=== PATIENT | female | born 1960 | race Caucasian/White ===

== ENCOUNTER 2019-04-04 23:41 | Emergency (ER) | payer SELFPAY ==
--- NOTE | 2019-04-05 00:10 | ER Document Report ---
ED GI/ - General Chief Complaint: Nausea/Vomiting Stated Complaint: NAUSEA Time Seen by Provider: 04/05/19 00:09 Primary Care Provider: SHARYN CHENG MD [NO LOCAL MD] - Follow up as needed Mode of Arrival: Ambulatory Information source: Patient Notes: HISTORY OF PRESENT ILLNESS: Patient is a 58-year-old morbidly obese female with a past medical history of depression who presents with multiple episodes of nausea and vomiting with lower abdominal pain that began 2 to 3 days ago and worsening. Patient denies fevers, denies bloody vomit or bloody bowel movements. Pain is an aching and burning sensation with some sharp ideation from the left lower quadrant up across the abdomen. She denies vaginal bleeding. Location: Left lower quadrant Onset: 2 to 3 days ago Alleviation: None Provocation: Movement Quality: Aching, nausea Radiation: None Severity: Moderate at worst Timing: Intermittent History of abdominal surgery: None Associated symptoms: Denies fevers or chills, no cough or congestion, no hematemesis or hematochezia, no diarrhea or constipation Last bowel movement: Today and normal REVIEW OF SYSTEMS: CONSTITUTIONAL : Denies fever or chills, no sweats. Denies recent illness. EENT: Denies eye, ear, throat, or mouth pain or symptoms. Denies nasal or sinus congestion. CARDIOVASCULAR: Denies chest pain. Denies swelling of the legs. RESPIRATORY: Denies cough, cold, or chest congestion. Denies shortness of breath or difficulty breathing. Denies wheezing. GASTROINTESTINAL: Positive for abdominal pain. Positive for vomiting, negative for diarrhea. Denies constipation. GENITOURINARY: Denies difficulty urinating, painful urination, burning, frequency, or blood in urine. FEMALE GENITOURINARY: Denies vaginal bleeding, abnormal or irregular periods. MUSCULOSKELETAL: Denies neck or back pain or joint pain or swelling. SKIN: Denies rash or skin lesions. HEMATOLOGIC : Denies easy bruising or bleeding. LYMPHATIC: Denies swollen, enlarged glands. NEUROLOGICAL: Denies altered mental status or loss of consciousness. Denies h eadache. Denies weakness or paralysis or loss of use of either side. Denies problems with gait or speech. Denies sensory or motor loss. PSYCHIATRIC: Denies anxiety or stress or depression. All other systems reviewed and negative. PHYSICAL EXAMINATION: GENERAL: Obese and tired-appearing, well-nourished and in no acute distress. HEAD: Atraumatic, normocephalic. No scalp deformity, depression, or crepitance. EYES: Pupils are 3 mm and equal/round/reactive to light, extraocular movements intact, sclera anicteric, conjunctiva are normal. ENT: Nares patent bilaterally, oropharynx. Moist mucous membranes. No tonsil hypertrophy. NECK: Normal range of motion, supple without lymphadenopathy. LUNGS: Breath sounds present, equal, and clear to auscultation bilaterally. No wheezes, rales, or rhonchi. HEART: Regular rate and rhythm without murmurs, rubs, or gallops. 2+ peripheral pulses. Normal capillary refill. ABDOMEN: Soft, moderate tenderness in the left lower quadrant and suprapubic area, nondistended. Normoactive bowel sounds. No guarding, no rebound. No masses appreciated. BACK: Normal contour, no midline tenderness. Rectal exam deferred. GENITAL/PELVIC: Deferred. EXTREMITIES: Normal range of motion, no pitting or edema. No cyanosis. NEUROLOGICAL: No focal neurological deficits. Moves all extremities spontaneously and on command. PSYCH: Normal mood, normal affect. No suicidal thoughts/ideations. No homicidal thoughts/ideations. No hallucinations. SKIN: Warm, dry, normal turgor, no rashes or lesions noted. ASSESSMENT AND PLAN: This patient is a 58-year-old female who presents with vomiting with lower abdominal tenderness that began a few days ago, but worsening before presentation. Concern for colitis versus gastroenteritis versus diverticulitis versus viral syndrome versus gastritis. 1. Will obtain labs, urine, cardiac enzymes, CT scan of the abdomen/pelvis, and reassess. 2. Will give IV fluids with morphine for pain control and reassess. TRAVEL OUTSIDE OF THE [place] IN LAST 30 DAYS: No - HPI Patient complains to provider of: Abdominal pain, Vomiting Onset: Yesterday Timing/Duration: Gradual Quality of pain: Achy, Cramping Severity at maximum: Moderate Severity in ED: Mild Pain Level: 2 Location: LLQ, Suprapubic, Pelvis Vaginal bleeding (Compared to normal period): None Menstrual period history: Post-menopausal Sexual history: Inactive Associated symptoms: Diarrhea, Vomiting Exacerbated by: Denies Relieved by: Denies Similar symptoms previously: No Recently seen / treated by doctor: No - Related Data Allergies/Adverse Reactions: No Known Allergies Allergy (Verified 08/01/14 12:37) Past Medical History - General Information source: Patient - Social History Smoking Status: Never Smoker Chew tobacco use (# tins/day): No Frequency of alcohol use: None Drug Abuse: None Lives with: Alone Family History: Reviewed & Not Pertinent Patient has suicidal ideation: No Patient has homicidal ideation: No - Past Medical History Cardiac Medical History: Reports: None Denies: Hx Coronary Artery Disease, Hx Heart Attack, Hx Hypertension Pulmonary Medical History: Reports: Hx Sleep Apnea Denies: Hx Asthma, Hx Bronchitis, Hx COPD, Hx Pneumonia EENT Medical History: Reports: None Neurological Medical History: Reports: None. Denies: Hx Cerebrovascular Accident, Hx Seizures Endocrine Medical History: Reports: Hx Hypothyroidism Renal/ Medical History: Reports: None Malignancy Medical History: Reports: None GI Medical History: Reports: None Musculoskeletal Medical History: Reports Hx Arthritis Skin Medical History: Reports None Psychiatric Medical History: Reports: Hx Depression Traumatic Medical History: Reports: None Infectious Medical History: Reports: None Past Surgical History: Reports: Hx Hysterectomy - Immunizations Hx Diphtheria, Pertussis, Tetanus Vaccination: No Review of Systems - Review of Systems Constitutional: No symptoms reported EENT: No symptoms reported Cardiovascular: No symptoms reported Respiratory: No symptoms reported Gastrointestinal: See HPI, Abdominal pain, Diarrhea, Vomiting Genitourinary: No symptoms reported Female Genitourinary: No symptoms reported Musculoskeletal: No symptoms reported Skin: No symptoms reported Hematologic/Lymphatic: No symptoms reported Neurological/Psychological: No symptoms reported -: Yes All other systems reviewed and negative Physical Exam - Vital signs Vitals: Temp 98.5 F 04/04/19 23:44 Interpretation: Normal Course - Re-evaluation Re-evalutation: 04/05/19 04:05 Labs are grossly unremarkable. CT scan shows acute sigmoid diverticulitis. Will discharge the patient home with strict return precautions and follow-up with primary care. All results were explained to and discussed with the patient, and all questions addressed and answered. The patient voices both understanding and agreeing with the plan. - Vital Signs Vital signs: Temp Pulse Resp BP Pulse Ox 98.9 F 12 108/69 95 04/05/19 04:21 04/05/19 04:21 04/05/19 04:21 04/05/19 04:21 - Laboratory Result Diagrams: 04/05/19 01:00 04/05/19 01:00 Laboratory results interpreted by me: 04/05/19 04/05/19 04/05/19 00:10 01:00 01:00 RBC 3.70 L Hgb 11.3 L Hct 34.5 L RDW 14.4 H Lymph % (Auto) 10.6 L Seg Neutrophils % 85.3 H BUN 26 H Est GFR (MDRD) Non-Af 57 L Glucose 129 H Total Bilirubin 1.7 H Direct Bilirubin 1.4 H AST 45 H Alkaline Phosphatase 236 H Urine Protein 100 H Urine Ketones TRACE H Urine Bilirubin MODERATE H Urine Urobilinogen 4.0 H Urine Ascorbic Acid 20 H - Diagnostic Test Radiology reviewed: Image reviewed, Reports reviewed Discharge - Discharge Clinical Impression: Diverticulitis Abdominal pain Qualifiers: Abdominal location: left lower quadrant Qualified Code(s): R10.32 - Left lower quadrant pain Condition: Good Disposition: HOME, SELF-CARE Instructions: Diverticulitis ([facility]) Additional Instructions: You have been evaluated in the Emergency Department for abdominal pain and vomiting. While here, you had a CAT scan that showed evidence of diverticulitis and it is now safe to be discharged home. Please follow-up with your primary physician as instructed in one week to be rechecked. You has been prescribed medications, please take these as instructed. Return to the Emergency Department if you experience worsening pain, high fevers, bloody diarrhea, or any other concerning symptoms. Prescriptions: Hydrocodone/Acetaminophen [[place] 5-325 mg Tablet] 1 tab PO Q6HP PRN #20 tablet PRN Reason: For Pain Ondansetron [Zofran Odt 4 mg Tablet] 1 tab PO Q6HP PRN #30 tab.rapdis PRN Reason: For Nausea/Vomiting Amox Tr/Potassium Clavulanate [Augmentin 875-125 mg Tablet] 1 tab PO BID #20 tablet Forms: Return to Work Referrals: SHARYN CHENG MD [NO LOCAL MD] - Follow up as needed Print Language: Omani
[2019-04-05 01:19] LABS: ABSOLUTE LYMPHOCYTES (AUTO) 0.7 10^3/uL (0.5-4.7); ABSOLUTE MONOCYTES (AUTO) 0.2 10^3/uL (0.1-1.4); ABSOLUTE NEUT (AUTO) 5.5 10^3/uL (1.7-8.2); BASOPHILS % (AUTO) 0.4 % (0-2); EOSINOPHILS % (AUTO) 0.4 % (0-6); HEMATOCRIT 34.5 % (36.0-47.0); HEMOGLOBIN 11.3 g/dL (12.0-15.5); LYMPHOCYTES % (AUTO) 10.6 % (13-45); MEAN CORPUSCULAR HEMOGLOBIN 30.5 pg (27.0-33.4); MEAN CORPUSCULAR HGB CONC 32.7 g/dL (32.0-36.0); MEAN CORPUSCULAR VOLUME 93 fl (80-97); MONOCYTES % (AUTO) 3.3 % (3-13); PLATELET COUNT 284 10^3/uL (150-450); RED CELL DISTRIBUTION WIDTH 14.4 % (11.5-14.0); SEGMENTED NEUTROPHILS % (AUTO) 85.3 % (42-78); TOTAL CELLS COUNTED % (AUTO) 100 %; WHITE BLOOD COUNT 6.4 10^3/uL (4.0-10.5)
[2019-04-05 01:31] LABS: APPEARANCE,URINE CLOUDY; BILIRUBIN,URINE MODERATE (NEGATIVE); COLOR,URINE AMBER; GLUCOSE, URINE NEGATIVE (NEGATIVE); KETONES,URINE TRACE mg/dL (NEGATIVE); LEUKOCYTE ESTERASE,URINE NEGATIVE (NEGATIVE); NITRITE,URINE NEGATIVE (NEGATIVE); PROTEIN,URINE 100 mg/dL (NEGATIVE); URINE SPECIFIC GRAVITY 1.036
[2019-04-05 01:34] LABS: ALBUMIN 3.7 g/dL (3.5-5.0); ALKALINE PHOSPHATASE 236 U/L (38-126); ANION GAP 13 (5-19); ASPARTATE AMINO TRANSFERASE 45 U/L (14-36); BILIRUBIN,DIRECT 1.4 mg/dL (0.0-0.4); BILIRUBIN,TOTAL 1.7 mg/dL (0.2-1.3); BLOOD UREA NITROGEN 26 mg/dL (7-20); CALCIUM 8.8 mg/dL (8.4-10.2); CARBON DIOXIDE 23 mmol/L (22-30); CHLORIDE 104 mmol/L (98-107); GLUCOSE 129 mg/dL (75-110); POTASSIUM 3.9 mmol/L (3.6-5.0)
[2019-04-05 01:36] LABS: ALCOHOL < 10 mg/dL (NONE DETECTED)
[2019-04-05 02:22] LABS: URINE AMPHETAMINES SCREEN NEGATIVE; URINE BARBITURATES SCREEN NEGATIVE; URINE BENZODIAZEPINES SCREEN NEGATIVE; URINE COCAINE SCREEN NEGATIVE; URINE MARIJUANA (THC) SCREEN NEGATIVE; URINE METHADONE SCREEN NEGATIVE; URINE PHENCYCLIDINE SCREEN NEGATIVE
--- NOTE | 2019-04-05 02:40 | RADIOLOGY REPORT (SQ) ---
INDICATION: Abdominal pain. CREAT 1.00 COMPARISON: None. TECHNIQUE: CT ABDOMEN PELVIS WITH IV CONTRAST on 04/05/2019 1:12 AM CDT This exam was performed according to our departmental dose-optimization program, which includes automated exposure control, adjustment of the mA and/or kV according to patient size and/or use of iterative reconstruction technique. FINDINGS: Lower lungs are clear. Abdomen: The liver is normal in appearance. There is no biliary dilatation. Gallbladder is normal in appearance. The pancreas and spleen are normal in appearance. Adrenal glands are normal. Kidneys are mildly atrophic. Abdominal aorta is normal in course and caliber without aneurysm. There is no free air. There is no retroperitoneal adenopathy. Pelvis: There is mild diverticulosis of the left colon. There is mild inflammation surrounding the mid sigmoid colon. Urinary bladder is unremarkable. There is no free fluid. Uterus is normal in size. Appendix is normal. Skeleton: There are no acute osseous findings. No suspicious bony lesions. IMPRESSION: Probable midsigmoid colonic diverticulitis.
[2019-04-05] MEDS ORDERED: HYDROCODONE/ACETAMINOPHEN 5-325 MG TABLET PO ONE (04:06)
[2019-04-05] MEDS ORDERED: AMOXICILLIN TR/POT CLAVULANATE 500-125 MG TAB PO ONE (04:06)
[2019-04-05 05:12] VITALS: BP 108/69
--- NOTE | 2019-04-05 07:43 | EKG REPORT ---
SEVERITY:- OTHERWISE NORMAL ECG - SINUS TACHYCARDIA : Confirmed by: Joey Koroam MD 05-Apr-2019 07:42:33
== END 2019-04-05 04:35 | disposition home or self-care (01) ==
LOC: ER 23:41
DX: K57.92 Diverticulitis of intestine, part unspecified, without perforation or abscess without bleeding (principal); R10.32 Left lower quadrant pain; R11.2 Nausea with vomiting, unspecified; F32.9 Major depressive disorder, single episode, unspecified; R19.7 Diarrhea, unspecified; Z90.710 Acquired absence of both cervix and uterus
CPT/HCPCS: 36415; 74177; 80053; 80307; 81001; 83690; 84484; 85025; 93005; 93010; 99284

== ENCOUNTER 2019-05-11 12:51 | Inpatient (IN) | payer BC ==
[2019-05-11] MEDS ORDERED: NORMAL SALINE 1000 ML 1,000 ML IV ONE (13:26)
[2019-05-11] MEDS ORDERED: DICYCLOMINE HCL 20 MG TABLET PO ONE (13:27)
--- NOTE | 2019-05-11 13:28 | ER Document Report ---
ED Medical Screen (RME) - General Chief Complaint: Abdominal Pain Stated Complaint: LOWER ABDOMINAL PAIN Time Seen by Provider: 05/11/19 13:18 Primary Care Provider: LENCHO HENDERSON DO [Primary Care Provider] - Follow up as needed Notes: Patient is a 59-year-old female who presents to the emergency department with a chief complaint of abdominal pain. She states the pain is in her mid lower abdomen. She states that her symptoms started yesterday and have progressively gotten worse. States that she has not had a regular bowel movement since she had diverticulitis on April 04. She also states that she feels that she is unable to urinate. States only he is having a little bit of urine. Exam: Tender mid lower abdomen. I have greeted and performed a rapid initial assessment of this patient. A comprehensive ED assessment and evaluation of the patient, analysis of test results and completion of medical decision making process will be conducted by an additional ED providers. TRAVEL OUTSIDE OF THE [place] IN LAST 30 DAYS: No - Related Data Allergies/Adverse Reactions: No Known Allergies Allergy (Verified 08/01/14 12:37) Past Medical History - Social History Chew tobacco use (# tins/day): No Frequency of alcohol use: None Drug Abuse: None - Past Medical History Cardiac Medical History: Denies: Hx Coronary Artery Disease, Hx Heart Attack, Hx Hypertension Pulmonary Medical History: Reports: Hx Sleep Apnea Denies: Hx Asthma, Hx Bronchitis, Hx COPD, Hx Pneumonia Neurological Medical History: Denies: Hx Cerebrovascular Accident, Hx Seizures Endocrine Medical History: Reports: Hx Hypothyroidism Musculoskeltal Medical History: Reports Hx Arthritis Psychiatric Medical History: Reports: Hx Depression Past Surgical History: Reports: Hx Hysterectomy - Immunizations Hx Diphtheria, Pertussis, Tetanus Vaccination: No Physical Exam - Vital signs Vitals: Temp Pulse Resp BP Pulse Ox 98.2 F 85 28 H 167/81 H 95 05/11/19 12:54 05/11/19 12:54 05/11/19 12:54 05/11/19 12:54 05/11/19 12:54 Course - Vital Signs Vital signs: Temp Pulse Resp BP Pulse Ox 98.2 F 85 28 H 167/81 H 95 05/11/19 13:25 05/11/19 13:25 05/11/19 13:25 05/11/19 13:25 05/11/19 13:25 Doctor's Discharge - Discharge Referrals: LENCHO HENDERSON DO [Primary Care Provider] - Follow up as needed
--- NOTE | 2019-05-11 14:23 | RADIOLOGY REPORT (SQ) ---
EXAM DESCRIPTION: ACUTE ABDOMEN SERIES COMPLETED DATE/TIME: 05/11/2019 1:51 pm REASON FOR STUDY: abd pain COMPARISON: None. NUMBER OF VIEWS: Three views. TECHNIQUE: Frontal chest, supine abdomen and upright/decubitus abdomen radiographic images acquired. LIMITATIONS: None. FINDINGS: CHEST: Lungs clear of infiltrates. FREE AIR: None. No abnormal gas collections. BOWEL GAS PATTERN: Nonobstructive pattern. No dilated loops or air fluid levels. CALCIFICATIONS: No suspicious calcifications. HARDWARE: None in the abdomen. SOFT TISSUES: No gross mass or suggestion of organomegaly. BONES: No acute fracture. No worrisome bone lesions. OTHER: No other significant finding. IMPRESSION: NO RADIOGRAPHIC EVIDENCE FOR ACUTE ABDOMINAL DISEASE. TECHNICAL DOCUMENTATION: JOB ID: [id number] [employer]- All Rights Reserved Reading location - IP/workstation name: [email or web address]
--- NOTE | 2019-05-11 15:05 | ER Document Report ---
ED GI/ - General Chief Complaint: Abdominal Pain Stated Complaint: LOWER ABDOMINAL PAIN Time Seen by Provider: 05/11/19 13:18 Mode of Arrival: Ambulatory Information source: Patient Notes: 59-year-old female patient presents emergency department chief complaint of generalized abdominal pain. Patient reports diagnosed with diverticulitis on April 04 here at [facility]. She states she completed her treatment for this. She states she has had intermittent abdominal pain since then but has had severe abdominal pain that started yesterday. She states her pain has progressively gotten worse through the day, describes it as sharp stabbing pain throughout her abdomen. She also reports that she feels like she has some urinary retention. She denies any vomiting or diarrhea but reports mild nausea. TRAVEL OUTSIDE OF THE [place] IN LAST 30 DAYS: No - Related Data Allergies/Adverse Reactions: No Known Allergies Allergy (Verified 08/01/14 12:37) Past Medical History - General Information source: Patient - Social History Smoking Status: Never Smoker Chew tobacco use (# tins/day): No Frequency of alcohol use: None Drug Abuse: None Family History: Reviewed & Not Pertinent Patient has suicidal ideation: No Patient has homicidal ideation: No - Past Medical History Cardiac Medical History: Denies: Hx Coronary Artery Disease, Hx Heart Attack, Hx Hypertension Pulmonary Medical History: Reports: Hx Sleep Apnea Denies: Hx Asthma, Hx Bronchitis, Hx COPD, Hx Pneumonia Neurological Medical History: Denies: Hx Cerebrovascular Accident, Hx Seizures Endocrine Medical History: Reports: Hx Hypothyroidism Musculoskeletal Medical History: Reports Hx Arthritis Psychiatric Medical History: Reports: Hx Depression Past Surgical History: Reports: Hx Hysterectomy - Immunizations Hx Diphtheria, Pertussis, Tetanus Vaccination: No Review of Systems - Review of Systems Constitutional: No symptoms reported EENT: No symptoms reported Cardiovascular: No symptoms reported Respiratory: No symptoms reported Gastrointestinal: Abdominal pain, Nausea, Vomiting Genitourinary: No symptoms reported Female Genitourinary: No symptoms reported Musculoskeletal: No symptoms reported Skin: No symptoms reported Hematologic/Lymphatic: No symptoms reported Neurological/Psychological: No symptoms reported Physical Exam - Vital signs Vitals: Temp Pulse Resp BP Pulse Ox 98.2 F 85 28 H 167/81 H 95 05/11/19 12:54 05/11/19 12:54 05/11/19 12:54 05/11/19 12:54 05/11/19 12:54 - Notes Notes: PHYSICAL EXAMINATION: GENERAL: Well-appearing, nontoxic, well-nourished and in no acute distress. HEAD: Atraumatic, normocephalic. EYES: Pupils equal round and reactive to light, extraocular movements intact, conjunctiva are normal. ENT: Nares patent, oropharynx clear without exudates. Moist mucous membranes. NECK: Normal range of motion, supple without lymphadenopathy LUNGS: Breath sounds clear to auscultation bilaterally and equal. No wheezes rales or rhonchi. HEART: Regular rate and rhythm without murmurs ABDOMEN: Soft, nondistended abdomen. Generalized abdominal tenderness with mild palpation. Female : No CVA tenderness. Musculoskeletal: Normal range of motion, no pitting or edema. No cyanosis. NEUROLOGICAL: Cranial nerves grossly intact. Normal speech, normal gait. Normal sensory, motor exams PSYCH: Normal mood, normal affect. SKIN: Warm, Dry, normal turgor, no rashes or lesions noted. Course - Re-evaluation Re-evalutation: Laboratory 05/11/19 05/11/19 05/11/19 15:29 15:29 15:29 WBC 17.6 H RBC 3.13 L Hgb 9.1 L Hct 28.7 L MCV 92 MCH 29.1 MCHC 31.8 L RDW 16.4 H Plt Count 369 Lymph % (Auto) Not Reportable [place] % (Auto) Not Reportable Eos % (Auto) Not Reportable Baso % (Auto) Not Reportable Absolute Neuts (auto) Not Reportable Absolute Lymphs (auto) Not Reportable Absolute Monos (auto) Not Reportable Absolute Eos (auto) Not Reportable Absolute Basos (auto) Not Reportable Total Counted 100 Seg Neutrophils % Not Reportable Seg Neuts % (Manual) 88 H Band Neutrophils % 2 L Lymphocytes % (Manual) 7 L Monocytes % (Manual) 3 Eosinophils % (Manual) 0 Basophils % (Manual) 0 Abs Neuts (Manual) 15.8 H Abs Lymphs (Manual) 1.2 Abs Monocytes (Manual) 0.5 Absolute Eos (Manual) 0.0 Abs Basophils (Manual) 0.0 Toxic Granulation 2+ Clumped Platelets PRESENT Platelet Comment ADEQUATE Anisocytosis 1+ Sodium 139.1 Potassium 4.6 Chloride 105 Carbon Dioxide 21 L Anion Gap 13 BUN 13 Creatinine 0.80 Est GFR ( Amer) > 60 Est GFR (MDRD) Non-Af > 60 Glucose 150 H Calcium 8.6 Total Bilirubin 1.1 Direct Bilirubin 0.7 H Neonat Total Bilirubin Not Reportable Neonat Direct Bilirubin Not Reportable Neonat Indirect Bili Not Reportable AST 38 H ALT 36 Alkaline Phosphatase 242 H Total Protein 6.6 Albumin 3.2 L Lipase 36.6 Urine Color Urine Appearance Urine pH Ur Specific [place] Urine Protein Urine Glucose (UA) Urine Ketones Urine Blood Urine Nitrite (Reflex) Urine Bilirubin Urine Urobilinogen Leukocyte Esterase Rfl Urine RBC (Auto) Urine Mucus (Auto) Urine Ascorbic Acid 05/11/19 16:03 WBC RBC Hgb Hct MCV MCH MCHC RDW Plt Count Lymph % (Auto) [place] % (Auto) Eos % (Auto) Baso % (Auto) Absolute Neuts (auto) Absolute Lymphs (auto) Absolute Monos (auto) Absolute Eos (auto) Absolute Basos (auto) Total Counted Seg Neutrophils % Seg Neuts % (Manual) Band Neutrophils % Lymphocytes % (Manual) Monocytes % (Manual) Eosinophils % (Manual) Basophils % (Manual) Abs Neuts (Manual) Abs Lymphs (Manual) Abs Monocytes (Manual) Absolute Eos (Manual) Abs Basophils (Manual) Toxic Granulation Clumped Platelets Platelet Comment Anisocytosis Sodium Potassium Chloride Carbon Dioxide Anion Gap BUN Creatinine Est GFR ( Amer) Est GFR (MDRD) Non-Af Glucose Calcium Total Bilirubin Direct Bilirubin Neonat Total Bilirubin Neonat Direct Bilirubin Neonat Indirect Bili AST ALT Alkaline Phosphatase Total Protein Albumin Lipase Urine Color YELLOW Urine Appearance CLEAR Urine pH 6.0 Ur Specific [place] 1.014 Urine Protein 30 H Urine Glucose (UA) NEGATIVE Urine Ketones NEGATIVE Urine Blood NEGATIVE Urine Nitrite (Reflex) NEGATIVE Urine Bilirubin NEGATIVE Urine Urobilinogen 2.0 H Leukocyte Esterase Rfl NEGATIVE Urine RBC (Auto) 1 Urine Mucus (Auto) OCC Urine Ascorbic Acid NEGATIVE Acute Abdomen Series 05/11/19 13:26 IMPRESSION: NO RADIOGRAPHIC EVIDENCE FOR ACUTE ABDOMINAL DISEASE. Abdomen/Pelvis CT 05/11/19 15:05 IMPRESSION: There appears to be diverticulitis. There is some extraluminal free air. There are 2 sizable fluid collections in the lower abdomen/pelvis as described. These may represent abscesses. Other findings as described. 05/11/19 17:56 Consulted general surgery, Dr. Cohen who will come and evaluate the patient. - Vital Signs Vital signs: Temp Pulse Resp BP Pulse Ox 98.2 F 85 22 H 153/59 H 98 05/11/19 13:25 05/11/19 13:25 05/11/19 19:01 05/11/19 19:01 05/11/19 19:01 - Laboratory Result Diagrams: 05/11/19 15:29 05/11/19 15:29 Laboratory results interpreted by me: 05/11/19 05/11/19 05/11/19 15:29 15:29 16:03 WBC 17.6 H RBC 3.13 L Hgb 9.1 L Hct 28.7 L MCHC 31.8 L RDW 16.4 H Seg Neuts % (Manual) 88 H Band Neutrophils % 2 L Lymphocytes % (Manual) 7 L Abs Neuts (Manual) 15.8 H Carbon Dioxide 21 L Glucose 150 H Direct Bilirubin 0.7 H AST 38 H Alkaline Phosphatase 242 H Albumin 3.2 L Urine Protein 30 H Urine Urobilinogen 2.0 H Discharge - Discharge Clinical Impression: DIVERTICULAR ABSCESS Leukocytosis Qualifiers: Leukocytosis type: unspecified Qualified Code(s): D72.829 - Elevated white blood cell count, unspecified Condition: Stable Disposition: ADMITTED INPATIENT Admitting Provider: Surgicalist Unit Admitted: Surgical Floor
[2019-05-11] MEDS ORDERED: ONDANSETRON HCL INJ/PF 4 MG/2 ML SDV IV ONE (15:12)
[2019-05-11] MEDS ORDERED: MORPHINE SULFATE 10 MG/ML INJ IV ONE (15:12)
[2019-05-11 15:59] LABS: HEMATOCRIT 28.7 % (36.0-47.0); HEMOGLOBIN 9.1 g/dL (12.0-15.5); MEAN CORPUSCULAR HEMOGLOBIN 29.1 pg (27.0-33.4); MEAN CORPUSCULAR HGB CONC 31.8 g/dL (32.0-36.0); MEAN CORPUSCULAR VOLUME 92 fl (80-97); RED BLOOD COUNT 3.13 10^6/uL (3.72-5.28); RED CELL DISTRIBUTION WIDTH 16.4 % (11.5-14.0); WHITE BLOOD COUNT 17.6 10^3/uL (4.0-10.5)
[2019-05-11 16:25] LABS: ALBUMIN 3.2 g/dL (3.5-5.0); ALKALINE PHOSPHATASE 242 U/L (38-126); ANION GAP 13 (5-19); ASPARTATE AMINO TRANSFERASE 38 U/L (14-36); BILIRUBIN,DIRECT 0.7 mg/dL (0.0-0.4); BILIRUBIN,TOTAL 1.1 mg/dL (0.2-1.3); BLOOD UREA NITROGEN 13 mg/dL (7-20); CALCIUM 8.6 mg/dL (8.4-10.2); CARBON DIOXIDE 21 mmol/L (22-30); CHLORIDE 105 mmol/L (98-107); GLUCOSE 150 mg/dL (75-110); POTASSIUM 4.6 mmol/L (3.6-5.0); TOTAL PROTEIN 6.6 g/dL (6.3-8.2)
[2019-05-11 16:30] LABS: APPEARANCE,URINE CLEAR; BILIRUBIN,URINE NEGATIVE (NEGATIVE); COLOR,URINE YELLOW; GLUCOSE, URINE NEGATIVE (NEGATIVE); KETONES,URINE NEGATIVE (NEGATIVE); PROTEIN,URINE 30 mg/dL (NEGATIVE); URINE SPECIFIC GRAVITY 1.014
[2019-05-11 16:34] LABS: ABSOLUTE LYMPHOCYTES# (MANUAL) 1.2 10^3/uL (0.5-4.7); ABSOLUTE MONOCYTES # (MANUAL) 0.5 10^3/uL (0.1-1.4); BAND NEUTROPHILS % (MANUAL) 2 % (3-5); BASOPHILS % (MANUAL) 0 % (0-2); EOSINOPHILS % (MANUAL) 0 % (0-6); LYMPHOCYTES % (MANUAL) 7 % (13-45); MONOCYTES % (MANUAL) 3 % (3-13); SEGMENTED NEUTROPHILS % (MAN) 88 % (42-78); TOTAL CELLS COUNTED 100
[2019-05-11 16:35] LABS: TOXIC GRANULATION 2+
[2019-05-11 16:36] LABS: ANISOCYTOSIS 1+
[2019-05-11 16:37] LABS: PLATELET CLUMPS PRESENT; PLATELET COMMENT ADEQUATE
[2019-05-11 16:38] LABS: PLATELET COUNT 369 10^3/uL (150-450)
--- NOTE | 2019-05-11 17:31 | RADIOLOGY REPORT (SQ) ---
EXAM DESCRIPTION: CT ABD/PELVIS WITH IV ONLY COMPLETED DATE/TIME: 05/11/2019 4:59 pm REASON FOR STUDY: low abd pain COMPARISON: 04/05/2019 TECHNIQUE: CT scan of the abdomen and pelvis performed using helical scanning technique with dynamic intravenous contrast injection. No oral contrast. Images reviewed with lung, soft tissue, and bone windows. Reconstructed coronal and sagittal MPR images reviewed. Delayed images for evaluation of the urinary system also acquired. All images stored on PACS. All CT scanners at this facility use dose modulation, iterative reconstruction, and/or weight based d osing when appropriate to reduce radiation dose to as low as reasonably achievable (ALARA). [facility]: Dose Right [facility]: CareDose [facility]: Dose Right [facility]: Teradose 4D [facility]: [employer]ix CONTRAST TYPE AND DOSE: contrast/concentration: Isovue 350.00 mg/ml; Total Contrast Delivered: 100.0 ml; Total Saline Delivered: 23.8 ml RENAL FUNCTION: BUN 13 creatinine 0.8 RADIATION DOSE: CT Rad equipment meets quality standard of care and radiation dose reduction techniq ues were employed. CTDIvol: NaN - NaN mGy. DLP: 0 mGy-cm.. LIMITATIONS: None. FINDINGS: LOWER CHEST: No significant findings. No nodules or infiltrates. LIVER: Normal size. No masses. No dilated ducts. SPLEEN: Normal size. No focal lesions. PANCREAS: No masses. No significant calcifications. No adjacent inflammation or peripancreatic fluid collections. Pancreatic duct not dilated. GALLBLADDER: No identified stones by CT criteria. No inflammatory changes to suggest cholecystitis. ADRENAL GLANDS: No significant masses or asymmetry. RIGHT KIDNEY AND URETER: No solid masses. No significant calcifications. No hydronephrosis or hyd roureter. LEFT KIDNEY AND URETER: No solid masses. No significant calcifications. No hydronephrosis or hydr oureter. AORTA AND VESSELS: No aneurysm. No dissection. Renal arteries, SMA, celiac without stenosis. RETROPERITONEUM: No retroperitoneal adenopathy, hemorrhage or masses. BOWEL AND PERITONEAL CAVITY: Sigmoid diverticulosis is present. There are inflammatory changes near the sigmoid. There is a small amount of extraluminal free air is sigmoid. There are 2 sizable defin able fluid collection. The larger measures 72 mm in largest diameter. The smaller, more inferior me asures 57 mm in largest diameter. APPENDIX: Normal. PELVIS: A catheter is present in the urinary bladder. ABDOMINAL WALL: Uncomplicated inguinal hernias are present. BONES: No significant or acute findings. OTHER: No other significant finding. IMPRESSION: There appears to be diverticulitis. There is some extraluminal free air. There are 2 s izable fluid collections in the lower abdomen/pelvis as described. These may represent abscesses. O ther findings as described. TECHNICAL DOCUMENTATION: JOB ID: [id number] Quality ID # [id number]: Final reports with documentation of one or more dose reduction techniques (e.g., Au tomated exposure control, adjustment of the mA and/or kV according to patient size, use of iterative reconstruction technique) 2010 [employer]- All Rights Reserved Reading location - IP/workstation name: [email or web address]
--- NOTE | 2019-05-11 19:46 | PDOC H&P ---
History of Present Illness Admission Date/PCP: LENCHO HENDERSON DO Patient complains of: Abdominal pain History of Present Illness: JP GILES is a 59 year old female who had been noted with a clinical evidence of diverticulitis and was treated with antibiotics intermittently for the past month and a half. Patient has noted lower abdominal pain for a month and a half. She has had some diminished appetite with resultant 25 pound weight loss. She has had some intermittent fevers as well. As well as some nausea and occasional emesis. She comes in today because of urinary retention and worsening of her lower abdominal pain. Since placement of a Au catheter she has had decreased pain although she still has lower abdominal pain. She has never had a colonoscopy. There is no family history of colon cancer. No blood per rectum nor hematuria. Past Medical History Cardiac Medical History: Denies: Coronary Artery Disease, Myocardial Infarction, Hypertension Pulmonary Medical History: Reports: Sleep Apnea Denies: Asthma, Bronchitis, Chronic Obstructive Pulmonary Disease (COPD), Pneumonia Neurological Medical History: Denies: Seizures Endocrine Medical History: Reports: Hypothyroidism Musculoskeltal Medical History: Reports: Arthritis Psychiatric Medical History: Reports: Depression Hematology: Reports: Anemia Past Surgical History Past Surgical History: Reports: Hysterectomy, Other - Repair of CSF leak Social History Smoking Status: Never Smoker Electronic Cigarette use?: No Frequency of Alcohol Use: None Hx Recreational Drug Use: No Hx Prescription Drug Abuse: No Family History Family History: Reviewed & Not Pertinent Parental Family History Reviewed: Yes - Mother with congestive heart failure Children Family History Reviewed: Yes Sibling(s) Family History Reviewed.: Yes Medication/Allergy Home Medications: Levothyroxine Sodium [Synthroid 0.112 mg Tablet] 0.112 mg PO Q6AM 05/11/19 Sertraline HCl [Zoloft 50 mg Tablet] 100 mg PO DAILY 05/11/19 Temazepam [Restoril 15 mg Capsule] 15 mg PO HSP PRN 05/11/19 Allergies/Adverse Reactions: No Known Allergies Allergy (Verified 08/01/14 12:37) Review of Systems All systems: reviewed and no additional remarkable complaints except as stated Constitutional: PRESENT: as per HPI Gastrointestinal: PRESENT: as per HPI Physical Exam Vital Signs: Temp Pulse Resp BP Pulse Ox 98.2 F 85 22 H 153/59 H 98 05/11/19 13:25 05/11/19 13:25 05/11/19 19:01 12/05/19 19:01 05/11/19 19:01 Intake & Output 05/10/19 05/11/19 05/12/19 06:59 06:59 06:59 Intake Total 1000 Output Total 200 Balance 800 Weight 118.388 kg General appearance: PRESENT: no acute distress, cooperative Eye exam: PRESENT: conjunctiva pink Neck exam: PRESENT: other - Neck supple with no masses and no tenderness. Respiratory exam: PRESENT: clear to auscultation michael Cardiovascular exam: PRESENT: RRR GI/Abdominal exam: PRESENT: other - Soft, mildly distended, focal tenderness to palpation in the mid to right lower quadrant with guarding. Extremities exam: PRESENT: +1 edema Neurological exam: PRESENT: alert, awake Psychiatric exam: PRESENT: flat affect Skin exam: PRESENT: warm Results Laboratory Results: 05/11/19 15:29 05/11/19 15:29 05/11/19 05/11/19 05/11/19 15:29 15:29 15:29 WBC 17.6 H RBC 3.13 L Hgb 9.1 L Hct 28.7 L MCV 92 MCH 29.1 MCHC 31.8 L RDW 16.4 H Plt Count 369 Seg Neutrophils % Not Reportable Sodium 139.1 Potassium 4.6 Chloride 105 Carbon Dioxide 21 L Anion Gap 13 BUN 13 Creatinine 0.80 Est GFR ( Amer) > 60 Glucose 150 H Calcium 8.6 Total Bilirubin 1.1 AST 38 H Alkaline Phosphatase 242 H Total Protein 6.6 Albumin 3.2 L Lipase 36.6 Urine Color Urine Appearance Urine pH Ur Specific [place] Urine Protein Urine Glucose (UA) Urine Ketones Urine Blood Urine RBC (Auto) 05/11/19 16:03 WBC RBC Hgb Hct MCV MCH MCHC RDW Plt Count Seg Neutrophils % Sodium Potassium Chloride Carbon Dioxide Anion Gap BUN Creatinine Est GFR ( Amer) Glucose Calcium Total Bilirubin AST Alkaline Phosphatase Total Protein Albumin Lipase Urine Color YELLOW Urine Appearance CLEAR Urine pH 6.0 Ur Specific [place] 1.014 Urine Protein 30 H Urine Glucose (UA) NEGATIVE Urine Ketones NEGATIVE Urine Blood NEGATIVE Urine RBC (Auto) 1 Impressions: Acute Abdomen Series 05/11/19 13:26 IMPRESSION: NO RADIOGRAPHIC EVIDENCE FOR ACUTE ABDOMINAL DISEASE. Abdomen/Pelvis CT 05/11/19 15:05 IMPRESSION: There appears to be diverticulitis. There is some extraluminal free air. There are 2 sizable fluid collections in the lower abdomen/pelvis as described. These may represent abscesses. Other findings as described. Assessment & Plan - Diagnosis (1) Diverticulitis large intestine Qualifiers: Diverticulitis complication: with perforation and abscess Is this a current diagnosis for this admission?: Yes Plan: With localized peritoneal signs and to abscesses. Will try conservative management initially with interventional radiology placed drains and IV antibiotics. Patient will likely need a colon resection however may be able to get the infection under control with conservative measures initially that may allow a colonoscopy and then semi-elective sigmoid colon resection with anastomosis. However would have a low threshold for proceeding with sigmoid colectomy and end colostomy if patient does not have clear response with conservative management.
[2019-05-11] MEDS ORDERED: PROMETHAZINE HCL INJ 25 MG/1 ML VIAL IV PRN (19:50)
[2019-05-11] MEDS: METRONIDAZOLE 500 MG/NS RTU 500 MG/100 ML RTUPB IV SCH (20:38)
[2019-05-11] MEDS: MORPHINE SULFATE 10 MG/ML INJ IV PRN (21:56)
[2019-05-11] MEDS: LEVOFLOXACIN 500 MG/D5W RTU 500 MG/100 ML RTUPB IV SCH (22:55)
[2019-05-12] MEDS: MORPHINE SULFATE 10 MG/ML INJ IV PRN ×3 (01:04→14:34)
[2019-05-12] MEDS: NORMAL SALINE 1000 ML 1,000 ML IV PRN ×2 (02:53→14:33)
[2019-05-12] MEDS: METRONIDAZOLE 500 MG/NS RTU 500 MG/100 ML RTUPB IV SCH ×4 (03:04→23:01)
[2019-05-12 08:48] LABS: HEMATOCRIT 26.3 % (36.0-47.0); HEMOGLOBIN 8.4 g/dL (12.0-15.5); MEAN CORPUSCULAR HEMOGLOBIN 29.1 pg (27.0-33.4); MEAN CORPUSCULAR HGB CONC 31.7 g/dL (32.0-36.0); MEAN CORPUSCULAR VOLUME 92 fl (80-97); PLATELET COUNT 340 10^3/uL (150-450); RED BLOOD COUNT 2.87 10^6/uL (3.72-5.28); RED CELL DISTRIBUTION WIDTH 16.7 % (11.5-14.0); WHITE BLOOD COUNT 16.1 10^3/uL (4.0-10.5)
[2019-05-12 09:11] LABS: ALBUMIN 2.7 g/dL (3.5-5.0); ALKALINE PHOSPHATASE 177 U/L (38-126); ANION GAP 10 (5-19); ASPARTATE AMINO TRANSFERASE 17 U/L (14-36); BILIRUBIN,DIRECT 0.7 mg/dL (0.0-0.4); BILIRUBIN,TOTAL 1.1 mg/dL (0.2-1.3); BLOOD UREA NITROGEN 13 mg/dL (7-20); CALCIUM 8.2 mg/dL (8.4-10.2); CARBON DIOXIDE 25 mmol/L (22-30); CHLORIDE 105 mmol/L (98-107); GLUCOSE 130 mg/dL (75-110); POTASSIUM 4.4 mmol/L (3.6-5.0); TOTAL PROTEIN 5.7 g/dL (6.3-8.2)
[2019-05-12 09:12] LABS: ABSOLUTE MONOCYTES # (MANUAL) 0.5 10^3/uL (0.1-1.4); BAND NEUTROPHILS % (MANUAL) 5 % (3-5); BASOPHILS % (MANUAL) 0 % (0-2); EOSINOPHILS % (MANUAL) 1 % (0-6); LYMPHOCYTES % (MANUAL) 6 % (13-45); MONOCYTES % (MANUAL) 3 % (3-13); SEGMENTED NEUTROPHILS % (MAN) 85 % (42-78); TOTAL CELLS COUNTED 100
[2019-05-12 09:13] LABS: ANISOCYTOSIS 1+; HYPOCHROMASIA SLIGHT
[2019-05-12 09:14] LABS: PLATELET COMMENT ADEQUATE
[2019-05-12] MEDS: ENOXAPARIN SODIUM INJ 40 MG/0.4 ML DISP.SYRIN SUBCUT SCH (10:01)
--- NOTE | 2019-05-12 12:02 | PDOC PROGRESS REPORT ---
Subjective Progress Note for:: 05/12/19 Subjective:: sl less pain Reason For Visit: DIVERTICULAR ABSCESS Perforated diverticulitis with diverticular abscess Physical Exam Vital Signs: Temp Pulse Resp BP Pulse Ox 99.0 F 92 22 H 132/71 H 97 05/12/19 11:58 05/12/19 11:58 05/12/19 11:58 05/12/19 11:58 05/12/19 11:58 Intake & Output 05/11/19 05/12/19 05/13/19 06:59 06:59 06:59 Intake Total 1200 Output Total 600 Balance 600 Weight 120.6 kg General appearance: PRESENT: mild distress Head exam: PRESENT: normocephalic Eye exam: PRESENT: EOMI Ear exam: PRESENT: normal external ear exam Mouth exam: PRESENT: dry mucosa Neck exam: PRESENT: full ROM Respiratory exam: PRESENT: clear to auscultation michael Cardiovascular exam: PRESENT: RRR Pulses: PRESENT: normal radial pulses, normal femoral pulses GI/Abdominal exam: PRESENT: guarding, tenderness - Tenderness to palpation Rectal exam: PRESENT: deferred Extremities exam: PRESENT: full ROM Musculoskeletal exam: PRESENT: full ROM Neurological exam: PRESENT: alert, awake, oriented to person, oriented to place Psychiatric exam: PRESENT: appropriate affect Skin exam: PRESENT: dry Results Laboratory Results: 05/12/19 08:20 05/12/19 08:20 05/11/19 05/11/19 05/11/19 15:29 15:29 15:29 WBC 17.6 H RBC 3.13 L Hgb 9.1 L Hct 28.7 L MCV 92 MCH 29.1 MCHC 31.8 L RDW 16.4 H Plt Count 369 Seg Neutrophils % Not Reportable Sodium 139.1 Potassium 4.6 Chloride 105 Carbon Dioxide 21 L Anion Gap 13 BUN 13 Creatinine 0.80 Est GFR ( Amer) > 60 Glucose 150 H Calcium 8.6 Total Bilirubin 1.1 AST 38 H Alkaline Phosphatase 242 H Total Protein 6.6 Albumin 3.2 L Lipase 36.6 Urine Color Urine Appearance Urine pH Ur Specific [place] Urine Protein Urine Glucose (UA) Urine Ketones Urine Blood Urine RBC (Auto) 05/11/19 05/12/19 05/12/19 16:03 08:20 08:20 WBC 16.1 H RBC 2.87 L Hgb 8.4 L Hct 26.3 L MCV 92 MCH 29.1 MCHC 31.7 L RDW 16.7 H Plt Count 340 Seg Neutrophils % Not Reportable Sodium 139.7 Potassium 4.4 Chloride 105 Carbon Dioxide 25 Anion Gap 10 BUN 13 Creatinine 0.85 Est GFR ( Amer) > 60 Glucose 130 H Calcium 8.2 L Total Bilirubin 1.1 AST 17 Alkaline Phosphatase 177 H Total Protein 5.7 L Albumin 2.7 L Lipase Urine Color YELLOW Urine Appearance CLEAR Urine pH 6.0 Ur Specific [place] 1.014 Urine Protein 30 H Urine Glucose (UA) NEGATIVE Urine Ketones NEGATIVE Urine Blood NEGATIVE Urine RBC (Auto) 1 Impressions: Acute Abdomen Series 05/11/19 13:26 IMPRESSION: NO RADIOGRAPHIC EVIDENCE FOR ACUTE ABDOMINAL DISEASE. Abdomen/Pelvis CT 05/11/19 15:05 IMPRESSION: There appears to be diverticulitis. There is some extraluminal free air. There are 2 sizable fluid collections in the lower abdomen/pelvis as described. These may represent abscesses. Other findings as described. Assessment & Plan - Time Time Spent with patient: 25-34 minutes - Plan Summary Plan Summary: Perforated diverticulitis with diverticular abscess. Reviewed the CT scan today with the radiologist who feels that there is possibility for IR drainage. We will continue IV fluids for now IV antibiotics patient will be taken to radiology later this afternoon for attempted drainage.
[2019-05-12 12:22] LABS: INTERNATIONAL RATION (INR) 1.45
[2019-05-12 12:23] LABS: PARTIAL THROMBOPLASTIN TIME 38.4 SEC (23.5-35.8)
[2019-05-12 12:26] LABS: PROTHROMBIN TIME 17.8 SEC (11.4-15.4)
--- NOTE | 2019-05-12 13:10 | EKG REPORT ---
SEVERITY:- ABNORMAL ECG - ACCELERATED JUNCTIONAL RHYTHM PAIRED VENTRICULAR PREMATURE COMPLEXES ABERRANT COMPLEX, POSSIBLY SUPRAVENTRICULAR LEFT ANTERIOR FASCICULAR BLOCK BORDERLINE ST ELEVATION, ANTEROLATERAL LEADS : Confirmed by: Alyssa Schmidt MD 12-May-2019 13:09:35
[2019-05-12] MEDS ORDERED: MIDAZOLAM 2 MG/2 ML INJ ONE (15:19)
[2019-05-12] MEDS ORDERED: FENTANYL CITRATE INJ/PF 100 MCG/2 ML AMPUL ONE (15:20)
--- NOTE | 2019-05-12 17:22 | RADIOLOGY REPORT (SQ) ---
EXAM DESCRIPTION: CT GUIDED PERCUT DRAIN W/CATH COMPLETED DATE/TIME: 05/12/2019 4:38 pm REASON FOR STUDY: Abscess secondary to diverticulitis perforated COMPARISON: 03/11/2019 TECHNIQUE: After obtaining informed consent and explaining the risks and benefits of conscious sedat ion,the patient agreed to the procedure. The patient was brought to the CT suite and was placed prone on the CT gurney. The patient was prepped and draped in the usual sterile fashion. Axial images wer e obtained for targeting of thepresacral collection. An appropriate access site was selected. IV cons cious sedation was administered and physician direction by the registered nurse using 1 milligrams of Versed and 75 micrograms of fentanyl. Physiologic monitoring was provided before, during, and after sedation. The total sedation time was 45 minutes. Documentation face to face time, the performing proceduralist, spent monitoring the patient: [address] of the liver was performed to localize an approach for trans gluteal drain placemen t. A percutaneous site was marked. Time out was performed. After skin prep and local lidocaine for skin and deep tissue anesthesia, a 18 gauge 15 cm needle was advanced toward the presacral collection via a right trans gluteal approach. Limited imaging was ut ilized to confirm appropriate trajectory. The needle was advanced into the collection and turbid flu id was evacuated. A 035 wire was advanced into the collection. The tract was dilated to 10 Burkinan. A 10 Burkinan pigtail catheter was advanced into the collection. The wire and inner stiffener were re moved and the pigtail formed in a standard fashion. The catheter was secured to the skin and hooked to a drainage device. A total of approximately 100 cc of turbid foul-smelling fluid was drained at the time of the procedur e. A sample was sent to the lab for analysis. Completion imaging was obtained demonstrating decreased size of both pelvic collections. No evidence of immediate postprocedure complications. Total of [address] fluoro was used. 8 CT Fluoroscopic images were obtained and saved to PACS. All CT scanners at this facility use dose modulation, iterative reconstruction, and/or weight based d osing when appropriate to reduce radiation dose to as low as reasonably achievable (ALARA). [facility]: Dose Right [facility]: CareDose [facility]: Dose Right [facility]: Teradose 4D [facility]: [employer] RADIATION DOSE: CT Rad equipment meets quality standard of care and radiation dose reduction techniq ues were employed. CTDIvol: 4.0 - 20.6 mGy. DLP: 1467 mGy-cm. mGy. LIMITATIONS: None. FINDINGS: CT guided drain placement and the pelvic presacral collection demonstrates appropriate pos ition of the catheter with decreased size of the collection post drain placement. IMPRESSION: CT fluoroscopy guided 10 Burkinan drain placement of the deep pelvic collection as detaile d above. Approximately 100 cc of turbid foul-smelling fluid was drained at the time of the procedure . A sample was sent to the lab for analysis. Recommend flushing catheter with 10 cc normal saline 3 times daily. COMMENT: Patient medication list reviewed:Yes- Quality ID# [id number]:Eligible professional attests to docu menting in the medical record they obtained, updated, or reviewed the patient's current medications.. Quality ID 145: Final reports for procedures using fluoroscopy that document radiation exposure lissette marilyn, or exposure time and number of fluorographic images (if radiation exposure indices are not avail able) TECHNICAL DOCUMENTATION: JOB ID: [id number] Quality ID # 436: Final reports with documentation of one or more dose reduction techniques (e.g., A utomated exposure control, adjustment of the mA and/or kV according to patient size, use of iterative reconstruction technique) 2010 [employer]- All Rights Reserved Reading location - IP/workstation name: [email or web address]
[2019-05-12] MEDS ORDERED: LORAZEPAM INJ 2 MG/1 ML VIAL IV ONE (23:45)
[2019-05-13] MEDS: LEVOFLOXACIN 500 MG/D5W RTU 500 MG/100 ML RTUPB IV SCH ×2 (01:31→22:02)
[2019-05-13] MEDS ORDERED: METRONIDAZOLE 500 MG/NS RTU 500 MG/100 ML RTUPB IV ONE (06:18)
[2019-05-13] MEDS: METRONIDAZOLE 500 MG/NS RTU 500 MG/100 ML RTUPB IV SCH ×3 (06:30→19:05)
[2019-05-13] MEDS: MORPHINE SULFATE 10 MG/ML INJ IV PRN ×3 (08:40→22:08)
--- NOTE | 2019-05-13 09:40 | PDOC PROGRESS REPORT ---
Subjective Progress Note for:: 05/13/19 Subjective:: feels sl better less lower abd pain Reason For Visit: DIVERTICULAR ABSCESS Physical Exam Vital Signs: Temp Pulse Resp BP Pulse Ox 99.4 F 94 20 124/61 95 05/13/19 07:56 05/13/19 07:56 05/13/19 07:56 05/13/19 07:56 05/13/19 07:56 Intake & Output 05/12/19 05/13/19 05/14/19 06:59 06:59 06:59 Intake Total 1300 1862 100 Output Total 600 800 60 Balance 700 1062 40 Weight 120.6 kg 119.1 kg General appearance: PRESENT: no acute distress, mild distress Eye exam: PRESENT: EOMI Ear exam: PRESENT: normal external ear exam Mouth exam: PRESENT: moist Neck exam: PRESENT: full ROM Respiratory exam: PRESENT: clear to auscultation michael Cardiovascular exam: PRESENT: RRR Pulses: PRESENT: normal radial pulses, normal femoral pulses Vascular exam: PRESENT: normal capillary refill GI/Abdominal exam: PRESENT: tenderness - tender suprapubic, mild guarding, no rebound Rectal exam: PRESENT: deferred Extremities exam: PRESENT: full ROM Musculoskeletal exam: PRESENT: full ROM Neurological exam: PRESENT: alert, awake, oriented to person Psychiatric exam: PRESENT: appropriate affect Skin exam: PRESENT: dry Results Laboratory Results: 05/12/19 08:20 05/12/19 08:20 05/12/19 14:47 Blood Type O NEGATIVE Impressions: Acute Abdomen Series 05/11/19 13:26 IMPRESSION: NO RADIOGRAPHIC EVIDENCE FOR ACUTE ABDOMINAL DISEASE. Abdomen/Pelvis CT 05/11/19 15:05 IMPRESSION: There appears to be diverticulitis. There is some extraluminal free air. There are 2 sizable fluid collections in the lower abdomen/pelvis as described. These may represent abscesses. Other findings as described. Percutaneous Drainage 05/12/19 00:00 IMPRESSION: CT fluoroscopy guided 10 Estonian drain placement of the deep pelvic collection as detailed above. Approximately 100 cc of turbid foul-smelling fluid was drained at the time of the procedure. A sample was sent to the lab for analysis. Recommend flushing catheter with 10 cc normal saline 3 times daily. Assessment & Plan - Diagnosis (1) Diverticulitis large intestine Qualifiers: Diverticulitis complication: with perforation and abscess Is this a current diagnosis for this admission?: Yes - Time Time Spent with patient: 35 or more minutes - Plan Summary Plan Summary: s/p perc drain yesterday iwth large amt of pus drained no labs done today will repeat cbc will repeat ct tomorrow. start clears will cont to irrigate drain.
[2019-05-13 11:17] LABS: HEMATOCRIT 23.8 % (36.0-47.0); MEAN CORPUSCULAR HEMOGLOBIN 28.7 pg (27.0-33.4); MEAN CORPUSCULAR HGB CONC 31.8 g/dL (32.0-36.0); MEAN CORPUSCULAR VOLUME 90 fl (80-97); PLATELET COUNT 340 10^3/uL (150-450); RED BLOOD COUNT 2.64 10^6/uL (3.72-5.28); RED CELL DISTRIBUTION WIDTH 16.7 % (11.5-14.0); WHITE BLOOD COUNT 16.2 10^3/uL (4.0-10.5)
[2019-05-13 11:19] LABS: HEMOGLOBIN 7.6 g/dL (12.0-15.5)
[2019-05-13 11:41] LABS: ANION GAP 13 (5-19); BLOOD UREA NITROGEN 13 mg/dL (7-20); CARBON DIOXIDE 21 mmol/L (22-30); CHLORIDE 103 mmol/L (98-107); GLUCOSE 166 mg/dL (75-110); POTASSIUM 4.3 mmol/L (3.6-5.0)
[2019-05-13 11:48] LABS: ABSOLUTE LYMPHOCYTES# (MANUAL) 1.3 10^3/uL (0.5-4.7); ABSOLUTE MONOCYTES # (MANUAL) 0.6 10^3/uL (0.1-1.4); BAND NEUTROPHILS % (MANUAL) 5 % (3-5); BASOPHILS % (MANUAL) 0 % (0-2); EOSINOPHILS % (MANUAL) 4 % (0-6); LYMPHOCYTES % (MANUAL) 8 % (13-45); MONOCYTES % (MANUAL) 4 % (3-13); NUCLEATED RED BLOOD CELLS 1 /100 WBC (0); SEGMENTED NEUTROPHILS % (MAN) 79 % (42-78); TOTAL CELLS COUNTED 100
[2019-05-13 11:49] LABS: ANISOCYTOSIS 1+; HYPOCHROMASIA SLIGHT
[2019-05-13 11:50] LABS: PLATELET COMMENT ADEQUATE
[2019-05-13] MEDS: NORMAL SALINE 1000 ML 1,000 ML IV PRN (12:30)
[2019-05-13] MEDS: ENOXAPARIN SODIUM INJ 40 MG/0.4 ML DISP.SYRIN SUBCUT SCH (12:32)
[2019-05-14] MEDS ORDERED: LORAZEPAM INJ 2 MG/1 ML VIAL ONE (03:17)
[2019-05-14] MEDS: METRONIDAZOLE 500 MG/NS RTU 500 MG/100 ML RTUPB IV SCH ×4 (03:24→20:59)
[2019-05-14] MEDS ORDERED: LORAZEPAM INJ 2 MG/1 ML VIAL IV ONE (03:30)
[2019-05-14] MEDS ORDERED: METRONIDAZOLE 500 MG/NS RTU 500 MG/100 ML RTUPB IV ONE (05:27)
[2019-05-14 07:48] LABS: HEMOGLOBIN 9.4 g/dL (12.0-15.5); MEAN CORPUSCULAR HEMOGLOBIN 28.6 pg (27.0-33.4); MEAN CORPUSCULAR HGB CONC 32.4 g/dL (32.0-36.0); MEAN CORPUSCULAR VOLUME 89 fl (80-97); PLATELET COUNT 310 10^3/uL (150-450); RED BLOOD COUNT 3.28 10^6/uL (3.72-5.28); RED CELL DISTRIBUTION WIDTH 17.6 % (11.5-14.0); WHITE BLOOD COUNT 17.9 10^3/uL (4.0-10.5)
[2019-05-14 07:50] LABS: ANION GAP 9 (5-19); BLOOD UREA NITROGEN 13 mg/dL (7-20); CALCIUM 7.5 mg/dL (8.4-10.2); CARBON DIOXIDE 23 mmol/L (22-30); CHLORIDE 105 mmol/L (98-107); GLUCOSE 122 mg/dL (75-110); POTASSIUM 3.9 mmol/L (3.6-5.0)
[2019-05-14 08:29] LABS: ABSOLUTE LYMPHOCYTES# (MANUAL) 1.6 10^3/uL (0.5-4.7); ABSOLUTE MONOCYTES # (MANUAL) 0.7 10^3/uL (0.1-1.4); BAND NEUTROPHILS % (MANUAL) 1 % (3-5); BASOPHILS % (MANUAL) 0 % (0-2); EOSINOPHILS % (MANUAL) 1 % (0-6); LYMPHOCYTES % (MANUAL) 9 % (13-45); MONOCYTES % (MANUAL) 4 % (3-13); NUCLEATED RED BLOOD CELLS 1 /100 WBC (0); SEGMENTED NEUTROPHILS % (MAN) 85 % (42-78); TOTAL CELLS COUNTED 100
[2019-05-14 08:31] LABS: ANISOCYTOSIS 1+; PLATELET COMMENT ADEQUATE; TOXIC GRANULATION 1+
[2019-05-14] MEDS ORDERED: ROCURONIUM BROMIDE INJ 50 MG/5 ML VIAL IV ONE (10:55)
[2019-05-14] MEDS ORDERED: SUCCINYLCHOLINE CHLORIDE INJ 200 MG/10 ML VIAL ONE (10:55)
[2019-05-14] MEDS: ENOXAPARIN SODIUM INJ 40 MG/0.4 ML DISP.SYRIN SUBCUT SCH (12:04)
--- NOTE | 2019-05-14 12:07 | RADIOLOGY REPORT (SQ) ---
EXAM DESCRIPTION: CT ABD/PELVIS ORAL ONLY COMPLETED DATE/TIME: 05/14/2019 11:21 am REASON FOR STUDY: f/u perfed diverticulitis COMPARISON: 05/11/2019. TECHNIQUE: CT scan of the abdomen and pelvis performed with oral contrast and no intravenous contras t. Images reviewed with lung, soft tissue, and bone windows. Reconstructed coronal and sagittal MPR i mages reviewed. All images stored on PACS. All CT scanners at this facility use dose modulation, iterative reconstruction, and/or weight based d osing when appropriate to reduce radiation dose to as low as reasonably achievable (ALARA). [facility]: Dose Right [facility]: CareDose [facility]: Dose Right [facility]: Teradose 4D [facility]: [employer] RADIATION DOSE: CT Rad equipment meets quality standard of care and radiation dose reduction techniq ues were employed. CTDIvol: 19.2 mGy. DLP: 1041 mGy-cm. mGy. LIMITATIONS: None. FINDINGS: There has been placement of a percutaneous drain from a posterior approach in the pelvis. More inferior gas fluid collection has resolved. The more superior fluid collection measures about 5.5 cm, previously 7.2 cm. Appearance is otherwise unchanged. No dilated loops. IMPRESSION: Interval decrease in pelvic fluid collection status post percutaneous drain placement. TECHNICAL DOCUMENTATION: JOB ID: [id number] Quality ID # 436: Final reports with documentation of one or more dose reduction techniques (e.g., Au tomated exposure control, adjustment of the mA and/or kV according to patient size, use of iterative reconstruction technique) 2010 [employer]- All Rights Reserved Reading location - IP/workstation name: [facility] [email or web address]
[2019-05-14] MEDS: NORMAL SALINE 1000 ML 1,000 ML IV PRN (12:20)
--- NOTE | 2019-05-14 12:32 | PDOC PROGRESS REPORT ---
Subjective Progress Note for:: 05/14/19 Subjective:: This is a 59-year-old female admitted with complicated diverticulitis. She underwent percutaneous drainage of her large pelvic abscess. The patient continues to complain of lower abdominal pain. Her percutaneous drain is productive of serosanguineous fluid at this time. She denies chest pain, shortness of breath, fevers, chills, nausea, vomiting, fatigue, melena, hematochezia, hematemesis. She does report malaise and diarrhea. Reason For Visit: DIVERTICULAR ABSCESS Physical Exam Vital Signs: Temp Pulse Resp BP Pulse Ox 97.4 F 81 20 129/57 H 92 05/14/19 12:10 05/14/19 12:10 05/14/19 12:10 05/14/19 12:10 05/14/19 12:10 Intake & Output 05/13/19 05/14/19 05/15/19 06:59 06:59 06:59 Intake Total 2862 2160 100 Output Total 800 1705 400 Balance 2062 455 -300 Weight 119.1 kg 119.1 kg General appearance: PRESENT: cooperative, morbidly obese. ABSENT: hard of hearing Head exam: PRESENT: atraumatic, normocephalic Eye exam: PRESENT: EOMI, PERRLA Mouth exam: PRESENT: moist, neck supple Neck exam: ABSENT: tenderness, thyromegaly, tracheal deviation Respiratory exam: ABSENT: chest wall tenderness Cardiovascular exam: PRESENT: RRR Pulses: PRESENT: normal radial pulses GI/Abdominal exam: PRESENT: guarding - Bilateral lower quadrants, soft, tenderness - Bilateral lower quadrants. ABSENT: distended, firm Rectal exam: PRESENT: deferred Gentrourinary exam: PRESENT: indwelling catheter Extremities exam: ABSENT: clubbing Musculoskeletal exam: ABSENT: deformity Neurological exam: PRESENT: alert, awake, oriented to person, oriented to place, oriented to time, oriented to situation, CN II-XII grossly intact. ABSENT: motor sensory deficit Psychiatric exam: ABSENT: agitated, anxious, depressed Focused psych exam: ABSENT: delusional Skin exam: ABSENT: cyanosis, erythema, jaundice Results Laboratory Results: 05/14/19 07:17 05/14/19 07:17 05/12/19 05/14/19 05/14/19 14:47 07:17 07:17 WBC 17.9 H RBC 3.28 L Hgb 9.4 L Hct 29.0 L MCV 89 MCH 28.6 MCHC 32.4 RDW 17.6 H Plt Count 310 Seg Neutrophils % Not Reportable Sodium 137.4 Potassium 3.9 Chloride 105 Carbon Dioxide 23 Anion Gap 9 BUN 13 Creatinine 0.71 Est GFR ( Amer) > 60 Glucose 122 H Calcium 7.5 L Blood Type O NEGATIVE Antibody Screen NEGATIVE Impressions: Acute Abdomen Series 05/11/19 13:26 IMPRESSION: NO RADIOGRAPHIC EVIDENCE FOR ACUTE ABDOMINAL DISEASE. Percutaneous Drainage 05/12/19 00:00 IMPRESSION: CT fluoroscopy guided 10 Armenian drain placement of the deep pelvic collection as detailed above. Approximately 100 cc of turbid foul-smelling fluid was drained at the time of the procedure. A sample was sent to the lab for analysis. Recommend flushing catheter with 10 cc normal saline 3 times daily. Abdomen/Pelvis CT 05/14/19 07:00 IMPRESSION: Interval decrease in pelvic fluid collection status post percutaneous drain placement. Assessment & Plan - Diagnosis (1) Diverticulitis of intestine with abscess Qualifiers: Diverticulitis site: large intestine Diverticulitis bleeding: without bleeding Qualified Code(s): K57.20 - Diverticulitis of large intestine with perforation and abscess without bleeding Is this a current diagnosis for this admission?: Yes (2) Morbid obesity with BMI of 45.0-49.9, adult Is this a current diagnosis for this admission?: Yes - Time Time Spent with patient: Less than 15 minutes - Plan Summary Plan Summary: This is a 59-year-old female with diverticulitis and 2 large abscesses in the pelvis. Percutaneous drainage was attempted. This has resulted in resolution of 1 of the abscess cavities. The other abscess cavity is still present and approximately 7 cm in diameter. Her white count is still elevated, her abdomen is batch still operator. I have recommended surgical intervention for her due to the persistence of her intra-abdominal abscess. I do not believe this abscess will resolve with antibiotics alone. Percutaneous drainage has been largely unsuccessful. I have reviewed the risks and benefits with the patient and her sister (via telephone). She is in agreement with surgical intervention today. Informed consent was obtained, and all her questions were answered.
[2019-05-14] MEDS ORDERED: FENTANYL CITRATE INJ/PF 100 MCG/2 ML AMPUL ONE ×2 (12:39→18:25)
[2019-05-14] MEDS ORDERED: KETOROLAC TROMETHAMINE 60 MG/2 ML SDV ONE (12:39)
[2019-05-14] MEDS ORDERED: MIDAZOLAM 2 MG/2 ML INJ ONE (12:39)
[2019-05-14] MEDS ORDERED: EPHEDRINE SULFATE INJ 50 MG/1 ML AMPULE ONE (12:39)
[2019-05-14] MEDS ORDERED: DEXAMETHASONE SOD PHOSPHATE INJ 4 MG/1 ML VIAL ONE (12:40)
[2019-05-14] MEDS ORDERED: MORPHINE SULFATE 10 MG/ML INJ ONE (12:40)
[2019-05-14] MEDS ORDERED: PROPOFOL INJ 200 MG/20 ML VIAL IV ONE (12:40)
[2019-05-14] MEDS ORDERED: ONDANSETRON HCL INJ/PF 4 MG/2 ML SDV ONE (12:40)
[2019-05-14] MEDS ORDERED: BUPIVACAINE HCL 0.25 % INJ/PF (2.5 MG/1 ML) 30 ML VIAL ONE (13:17)
[2019-05-14] MEDS ORDERED: MEPERIDINE HCL/PF INJ 25 MG/1 ML DISP.SYRIN IV PRN (16:29)
[2019-05-14] MEDS ORDERED: OXYCODONE-ACETAMINOPHEN 5-325 MG TABLET PO PRN ×2 (16:29)
[2019-05-14] MEDS ORDERED: DIPHENHYDRAMINE HCL 50 MG/ML VIAL IV PRN (16:29)
[2019-05-14] MEDS ORDERED: MORPHINE SULFATE 10 MG/ML INJ IV PRN (16:29)
[2019-05-14] MEDS ORDERED: PROMETHAZINE HCL INJ 25 MG/1 ML VIAL IV PRN ×2 (16:29)
[2019-05-14] MEDS ORDERED: FENTANYL CITRATE INJ/PF 100 MCG/2 ML AMPUL IV PRN ×3 (16:29)
[2019-05-14] MEDS ORDERED: ONDANSETRON HCL INJ/PF 4 MG/2 ML SDV IV PRN (16:29)
[2019-05-14] MEDS ORDERED: SUGAMMADEX SODIUM 200 MG/2 ML SDV IV ONE (17:24)
[2019-05-14] MEDS ORDERED: PHARMACY COMMUNICATION ORDER MC NR (18:00)
[2019-05-14] MEDS ORDERED: DEXTROSE 40% GEL 15 GM TUBE PO PRN ×2 (18:00)
[2019-05-14] MEDS ORDERED: DEXTROSE 50%-WATER 25 GM/50 ML DISP.SYRIN IV PRN ×2 (18:00)
[2019-05-14] MEDS ORDERED: GLUCAGON,HUMAN RECOMB 1 MG INJ SUBCUT PRN (18:00)
[2019-05-14] MEDS ORDERED: ACETAMINOPHEN 1,000 MG/100 ML RTUPB IV ONE (18:05)
[2019-05-14] MEDS ORDERED: LEVOTHYROXINE SODIUM INJ/PF 0.1 MG SDV IV SCH (19:30)
[2019-05-14] MEDS: RINGERS SOLUTION,LACTATED 1,000 ML IV PRN (21:06)
[2019-05-14] MEDS ORDERED: LEVOTHYROXINE SODIUM INJ/PF 0.1 MG SDV ONE (21:20)
--- NOTE | 2019-05-14 21:22 | RADIOLOGY REPORT (SQ) ---
XR ABDOMEN 1 VIEW (KUB) CLINICAL STATEMENT: Check Placement of NG Tube Findings: Enteric tube is in place with tip below the diaphragm in the stomach. Heart is moderately enlarged. No pneumothorax. No free air. Oral contrast is seen in colonic loops. Impression: Enteric tube is in place with tip in the stomach.
--- NOTE | 2019-05-14 21:24 | Operative Report ---
Nonrecallable Operative Report DATE OF SURGERY: 05/14/19 PREOPERATIVE DIAGNOSIS: 1. Diverticulitis with abscess. 2. Morbid obesity POSTOPERATIVE DIAGNOSIS: 1. Severe diverticulitis with residual abscess in the pelvis. 2. Involvement of the terminal ileum, requiring segmental resection. 3. Involvement of the appendix, requiring resection. 4. Involvement of the right ovary, requiring resection. OPERATION: 1. Exploratory laparotomy. 2. Segmental resection of the sigmoid colon, down to the rectosigmoid junction, with descending colostomy placement (Pickering's procedure). 3. Appendectomy. 4. Segmental small bowel resection of the terminal ileum, with primary [id number] stapled anastomosis. 5. Right oophorectomy. 6. Placement of retention sutures. 7. Significant lysis of adhesions. SURGEON: CURTIS CHILDERS ANESTHESIA: GA TISSUE REMOVED OR ALTERED: 1. Sigmoid colon. 2. Appendix. 3. Terminal ileum, small bowel. 4. Right ovary. COMPLICATIONS: Severe diverticular abscess involving multiple pelvic structures, requiring removal of the appendix, a portion of small bowel, and right ovary. ESTIMATED BLOOD LOSS: 400 cc PROCEDURE: Drains/implants: 1. there is a 15 Singaporean round Gilbert drain exiting the lateral right lower quadrant, situated in the right paracolic gutter, adjacent to the anastomosis of the small bowel. 2. There is a 15 Singaporean round Gilbert drain exiting the medial right lower quadrant that is draped over the left paracolic gutter and into the pelvis. Procedure in detail: After informed consent was obtained, the patient was brought to the operating room and laid in the supine position. The area of the abdomen was prepped and draped in a normal sterile fashion. An incision was created from above the umbilicus, down to the pelvis. Dissection was carried through the subcutaneous tissue using blunt dissection and electrocautery. The linea alba fascia was incised sharply, the abdomen was entered sharply. The incision was then extended inferiorly, taking great care so as not to injure the bladder. The bladder was tucked out of the way. The Omni was placed on the patient, and attention was turned to examination of the pelvis. There was a dense inflammatory reaction in the pelvis involving the small bowel, sigmoid colon, and a right pelvic structure that appeared to be the ovary. Using a mixture of sharp dissection and blunt dissection, lysis of adhesions was undertaken. Lysis of adhesions took approximately 2 hours. Once the small bowel, sigmoid colon, and other structures were freed it was noted that a portion of the terminal ileum was dusky and unhealthy due to its involvement in the pelvic inflammatory process. A section of small bowel was then resected, approximately 10 cm in length. This was done using a DAMON 75 with a blue load. It was removed from its mesentery using the LigaSure device. Next, a stapled porb-au-ckyf anastomosis was created between the 2 portions of small bowel. The resulting defect was closed using 3-0 PDS suture in simple running fashion. 3-0 Lembert Vicryl sutures were then used to buttress the closure. This closure was used to preserve all length of the small bowel adjacent to the cecum. A crotch stitch of 3-0 Vicryl was used to secure the anastomosis. Once this was completed, attention was then turned to the other pelvic structures. The appendix was also inflamed, and densely adherent to the pelvis. The appendix was freed, however it was felt to require resection as well. The appendix was divided at its base using the DAMON-75 stapler. The mesoappendix was taken down using the LigaSure device. Once this was completed, attention was turned to the sigmoid colon. The sigmoid colon was freed using a mixture of careful sharp dissection and blunt dissection. It was freed from the left lateral pelvic sidewall and retracted anteriorly. A normal-appearing proximal portion of the sigmoid colon was divided using the contour stapler. Next, the mesentery was divided using the LigaSure device, immediately adjacent to the bowel. The left ureter was not encountered during this maneuver. Once the diseased sigmoid colon was reached, it was freed using a mixture of sharp and blunt dissection. There was a large round pelvic structure densely adherent to the sigmoid colon. This was freed with the sigmoid colon. I believe this to be the right ovary. It appeared necrotic and unhealthy. The right ovary was removed with the sigmoid colon specimen. The sigmoid colon was divided dis tally, at the rectosigmoid junction using the contour stapler. The rectal stump was marked with a #1 Prolene suture. After this was completed, the abdomen was copiously irrigated and suctioned. Hemostasis was ensured. 2 15 Singaporean round Gilbert drains were placed through stab incisions in the right lower quadrant. The right lateral drain was placed in the right paracolic gutter, and posterior to the small bowel anastomosis. The right lower quadrant medial drain was placed over the left paracolic gutter, down into the pelvis. The drain was sutured in place using 2-0 Prolene suture. Attention was then turned to freeing of the descending colon in preparation of colostomy placement. The left paracolic gutter was divided using Metzenbaum scissors. The colon was rotated medially. There appeared to be adequate length in the colon to create a colostomy. Next, a small portion of skin was removed from the left lower quadrant. Dissection was carried through the subcutaneous tissues using blunt dissection. A cruciate incision was created in the fascia of the left lower quadrant abdominal wall. The rectus muscles were spread, and the descending/sigmoid colon was delivered through the incision. Next, it was felt prudent to place retention sutures due to the patient's morbid obesity. A single #1 Prolene suture was used superiorly due to the unavailability of #2 nylon. 3 #2 nylons were used for the remainder of the retention sutures. There were 4 retention sutures placed in all. After the retention sutures were placed, the midline fascia was reapproximated using #1 double-stranded loop PDS suture in simple running fashion. The retention sutures were tightened. The midline incision was then loosely approximated with several gaps to allow packing. Once the incision was partially closed, attention was turned to creation of the ostomy. Due to the patient's morbid obesity, a skin level ostomy was performed. The descending colon was opened, revealing pink and healthy mucosa. The descending colon was then sutured circumferentially to the skin using 3-0 Vicryl suture. Once this was completed, an ostomy appliance was placed, and the procedure was concluded. All sponge, instrument, and needle counts were correct x2. Condition: Fair.
[2019-05-14] MEDS: LEVOFLOXACIN 500 MG/D5W RTU 500 MG/100 ML RTUPB IV SCH (21:57)
[2019-05-14] MEDS: FAMOTIDINE INJ/PF 20 MG/2 ML SDV IV SCH (21:57)
[2019-05-14] MEDS: KETOROLAC TROMETHAMINE INJ/PF 30 MG/1 ML SDV IV SCH (22:01)
[2019-05-14] MEDS: MORPHINE SULFATE 10 MG/ML INJ IV PRN (23:15)
[2019-05-15] MEDS: METRONIDAZOLE 500 MG/NS RTU 500 MG/100 ML RTUPB IV SCH ×4 (00:46→18:09)
[2019-05-15] MEDS: MORPHINE SULFATE 10 MG/ML INJ IV PRN ×5 (03:16→20:42)
[2019-05-15] MEDS: RINGERS SOLUTION,LACTATED 1,000 ML IV PRN ×3 (03:35→20:33)
[2019-05-15] MEDS: KETOROLAC TROMETHAMINE INJ/PF 30 MG/1 ML SDV IV SCH ×3 (05:20→21:44)
[2019-05-15] MEDS: FAMOTIDINE INJ/PF 20 MG/2 ML SDV IV SCH ×2 (09:27→21:46)
--- NOTE | 2019-05-15 10:01 | PDOC PROGRESS REPORT ---
Subjective Progress Note for:: 05/15/19 Subjective:: Patient evaluated on the floor. She is approximately 11 hours status post surgery. She is awake alert oriented. She is accompanied by her sister at bedside. Reason For Visit: DIVERTICULAR ABSCESS Physical Exam Vital Signs: Temp Pulse Resp BP Pulse Ox 97.3 F 80 17 143/73 H 100 05/15/19 08:06 05/15/19 08:06 05/15/19 08:06 05/15/19 08:06 05/15/19 08:06 Intake & Output 05/14/19 05/15/19 05/16/19 06:59 06:59 06:59 Intake Total 2160 6090 Output Total 1705 2205 Balance 455 3885 Weight 119.1 kg 128.6 kg General appearance: PRESENT: no acute distress, other - Answers questions appropriately GI/Abdominal exam: PRESENT: other - Midline dressing with minimal sero- sanguinous staining. The ostomy is pink minimally edematous. No gas in bag. Serosanguineous fluid draining from right lower quadrant drains x2 Results Laboratory Results: 05/14/19 07:17 05/14/19 07:17 Impressions: Acute Abdomen Series 05/11/19 13:26 IMPRESSION: NO RADIOGRAPHIC EVIDENCE FOR ACUTE ABDOMINAL DISEASE. Percutaneous Drainage 05/12/19 00:00 IMPRESSION: CT fluoroscopy guided 10 Pashto drain placement of the deep pelvic collection as detailed above. Approximately 100 cc of turbid foul-smelling fluid was drained at the time of the procedure. A sample was sent to the lab for analysis. Recommend flushing catheter with 10 cc normal saline 3 times daily. Abdomen/Pelvis CT 05/14/19 07:00 IMPRESSION: Interval decrease in pelvic fluid collection status post percutaneous drain placement. Assessment & Plan - Diagnosis (1) Diverticulitis of intestine with abscess Qualifiers: Diverticulitis site: large intestine Diverticulitis bleeding: without bleeding Qualified Code(s): K57.20 - Diverticulitis of large intestine with perforation and abscess without bleeding Is this a current diagnosis for this admission?: Yes Plan: Impression: 1 day status post exploratory laparotomy, open, sigmoid colectomy, colostomy, small bowel resection, appendectomy and right nephrectomy with drain placement for umbilicated diverticulitis and nonviable associated organs, doing well in the early postoperative period Recommendations: 1. We will get patient up in bed, and preferably transferring to chair. 2. Incentive spirometer 3. Continue support tubes, intravenous fluids for now. 4. The above discussed with patient and her sister at bedside. - Time Time Spent with patient: 15-24 minutes
[2019-05-15] MEDS: ENOXAPARIN SODIUM INJ 40 MG/0.4 ML DISP.SYRIN SUBCUT SCH (10:50)
[2019-05-15 11:08] LABS: HEMOGLOBIN 9.1 g/dL (12.0-15.5); MEAN CORPUSCULAR HGB CONC 32.5 g/dL (32.0-36.0); MEAN CORPUSCULAR VOLUME 89 fl (80-97); PLATELET COUNT 345 10^3/uL (150-450); RED BLOOD COUNT 3.14 10^6/uL (3.72-5.28); RED CELL DISTRIBUTION WIDTH 18.2 % (11.5-14.0); WHITE BLOOD COUNT 19.1 10^3/uL (4.0-10.5)
[2019-05-15 11:36] LABS: ANION GAP 8 (5-19); BLOOD UREA NITROGEN 20 mg/dL (7-20); CALCIUM 7.7 mg/dL (8.4-10.2); CARBON DIOXIDE 23 mmol/L (22-30); CHLORIDE 108 mmol/L (98-107); GLUCOSE 129 mg/dL (75-110); POTASSIUM 4.6 mmol/L (3.6-5.0)
[2019-05-15 11:41] LABS: ABSOLUTE MONOCYTES # (MANUAL) 1.1 10^3/uL (0.1-1.4); BAND NEUTROPHILS % (MANUAL) 3 % (3-5); BASOPHILS % (MANUAL) 0 % (0-2); EOSINOPHILS % (MANUAL) 0 % (0-6); LYMPHOCYTES % (MANUAL) 4 % (13-45); MONOCYTES % (MANUAL) 6 % (3-13); SEGMENTED NEUTROPHILS % (MAN) 86 % (42-78); TOTAL CELLS COUNTED 100; WBC MORPHOLOGY COMMENT 0
[2019-05-15 11:42] LABS: ANISOCYTOSIS 2+; HYPOCHROMASIA 1+; PLATELET COMMENT ADEQUATE
[2019-05-15] MEDS: LEVOFLOXACIN 500 MG/D5W RTU 500 MG/100 ML RTUPB IV SCH (21:47)
[2019-05-15] MEDS: SERTRALINE HCL 50 MG TABLET PO SCH (21:56)
[2019-05-16] MEDS: METRONIDAZOLE 500 MG/NS RTU 500 MG/100 ML RTUPB IV SCH ×4 (01:02→17:52)
[2019-05-16] MEDS: KETOROLAC TROMETHAMINE INJ/PF 30 MG/1 ML SDV IV SCH ×3 (05:45→22:34)
[2019-05-16] MEDS ORDERED: LEVOTHYROXINE SODIUM 0.112 MG TABLET PO SCH (06:00)
[2019-05-16] MEDS ORDERED: NORMAL SALINE 500 ML IV ONE (08:00)
--- NOTE | 2019-05-16 09:14 | PDOC PROGRESS REPORT ---
Subjective Progress Note for:: 05/16/19 Subjective:: feels ok sitting up in chair. Reason For Visit: DIVERTICULAR ABSCESS Physical Exam Vital Signs: Temp Pulse Resp BP Pulse Ox 97.3 F 74 19 144/50 H 99 05/16/19 07:43 05/16/19 07:43 05/16/19 07:43 05/16/19 07:43 05/16/19 07:43 Intake & Output 05/15/19 05/16/19 05/17/19 06:59 06:59 06:59 Intake Total 6090 3400 Output Total 2205 1105 Balance 3885 2295 Weight 128.6 kg 126.1 kg General appearance: PRESENT: no acute distress Head exam: PRESENT: normocephalic Eye exam: PRESENT: EOMI Ear exam: PRESENT: normal external ear exam Mouth exam: PRESENT: dry mucosa Teeth exam: PRESENT: poor dentation Neck exam: PRESENT: full ROM Respiratory exam: PRESENT: clear to auscultation michael Cardiovascular exam: PRESENT: RRR Pulses: PRESENT: normal radial pulses, normal femoral pulses Vascular exam: PRESENT: pallor GI/Abdominal exam: PRESENT: other - stoma pink no op min bs Rectal exam: PRESENT: deferred Extremities exam: PRESENT: +1 edema Musculoskeletal exam: PRESENT: full ROM Neurological exam: PRESENT: alert, awake, oriented to person, oriented to place Psychiatric exam: PRESENT: appropriate affect Skin exam: PRESENT: dry Results Laboratory Results: 05/15/19 10:23 05/15/19 10:23 05/15/19 05/15/19 10:23 10:23 WBC 19.1 H RBC 3.14 L Hgb 9.1 L Hct 28.0 L MCV 89 MCH 29.0 MCHC 32.5 RDW 18.2 H Plt Count 345 Seg Neutrophils % Not Reportable Sodium 138.7 Potassium 4.6 Chloride 108 H Carbon Dioxide 23 Anion Gap 8 BUN 20 Creatinine 0.71 Est GFR ( Amer) > 60 Glucose 129 H Calcium 7.7 L 05/12/19 16:10 Abdominal Fluid Gram Stain - Final Impressions: Acute Abdomen Series 05/11/19 13:26 IMPRESSION: NO RADIOGRAPHIC EVIDENCE FOR ACUTE ABDOMINAL DISEASE. Percutaneous Drainage 05/12/19 00:00 IMPRESSION: CT fluoroscopy guided 10 Lithuanian drain placement of the deep pelvic collection as detailed above. Approximately 100 cc of turbid foul-smelling fluid was drained at the time of the procedure. A sample was sent to the lab for analysis. Recommend flushing catheter with 10 cc normal saline 3 times daily. Abdomen/Pelvis CT 05/14/19 07:00 IMPRESSION: Interval decrease in pelvic fluid collection status post percutaneous drain placement. Assessment & Plan - Diagnosis (1) Diverticulitis large intestine Qualifiers: Diverticulitis complication: with perforation and abscess Is this a current diagnosis for this admission?: Yes - Time Time Spent with patient: 35 or more minutes - Plan Summary Plan Summary: s/p ex lap for diverticulitis pod 2 up in chair no bowel function as yet will increase activity cont ng suction repeat labs
[2019-05-16 10:13] LABS: HEMATOCRIT 26.4 % (36.0-47.0); HEMOGLOBIN 8.5 g/dL (12.0-15.5); MEAN CORPUSCULAR HGB CONC 32.3 g/dL (32.0-36.0); MEAN CORPUSCULAR VOLUME 90 fl (80-97); PLATELET COUNT 375 10^3/uL (150-450); RED BLOOD COUNT 2.94 10^6/uL (3.72-5.28); RED CELL DISTRIBUTION WIDTH 18.2 % (11.5-14.0); WHITE BLOOD COUNT 16.1 10^3/uL (4.0-10.5)
[2019-05-16 10:29] LABS: ANION GAP 11 (5-19); BLOOD UREA NITROGEN 23 mg/dL (7-20); CARBON DIOXIDE 24 mmol/L (22-30); CHLORIDE 106 mmol/L (98-107); GLUCOSE 109 mg/dL (75-110); POTASSIUM 4.2 mmol/L (3.6-5.0)
[2019-05-16] MEDS: MORPHINE SULFATE 10 MG/ML INJ IV PRN ×2 (10:44→22:34)
[2019-05-16] MEDS: FAMOTIDINE INJ/PF 20 MG/2 ML SDV IV SCH ×2 (10:44→22:33)
[2019-05-16] MEDS: ENOXAPARIN SODIUM INJ 40 MG/0.4 ML DISP.SYRIN SUBCUT SCH (10:45)
[2019-05-16 10:50] LABS: ABSOLUTE LYMPHOCYTES# (MANUAL) 0.8 10^3/uL (0.5-4.7); ABSOLUTE MONOCYTES # (MANUAL) 0.8 10^3/uL (0.1-1.4); BAND NEUTROPHILS % (MANUAL) 2 % (3-5); BASOPHILS % (MANUAL) 0 % (0-2); EOSINOPHILS % (MANUAL) 1 % (0-6); LYMPHOCYTES % (MANUAL) 5 % (13-45); MONOCYTES % (MANUAL) 5 % (3-13); SEGMENTED NEUTROPHILS % (MAN) 87 % (42-78); TOTAL CELLS COUNTED 100
[2019-05-16 10:51] LABS: ANISOCYTOSIS 1+; HYPOCHROMASIA SLIGHT
[2019-05-16 10:52] LABS: PLATELET COMMENT ADEQUATE
[2019-05-16] MEDS: ONDANSETRON HCL INJ/PF 4 MG/2 ML SDV IV PRN (15:31)
[2019-05-16] MEDS: LEVOFLOXACIN 500 MG/D5W RTU 500 MG/100 ML RTUPB IV SCH (22:34)
[2019-05-16] MEDS: SERTRALINE HCL 50 MG TABLET PO SCH (22:35)
[2019-05-17] MEDS: METRONIDAZOLE 500 MG/NS RTU 500 MG/100 ML RTUPB IV SCH ×5 (01:12→23:26)
[2019-05-17] MEDS: MORPHINE SULFATE 10 MG/ML INJ IV PRN ×4 (01:13→23:26)
[2019-05-17] MEDS: KETOROLAC TROMETHAMINE INJ/PF 30 MG/1 ML SDV IV SCH ×3 (06:28→22:17)
[2019-05-17] MEDS: RINGERS SOLUTION,LACTATED 1,000 ML IV PRN (06:34)
[2019-05-17 10:20] LABS: HEMATOCRIT 26.7 % (36.0-47.0); HEMOGLOBIN 8.7 g/dL (12.0-15.5); MEAN CORPUSCULAR HGB CONC 32.4 g/dL (32.0-36.0); MEAN CORPUSCULAR VOLUME 89 fl (80-97); RED BLOOD COUNT 2.99 10^6/uL (3.72-5.28); RED CELL DISTRIBUTION WIDTH 17.9 % (11.5-14.0); WHITE BLOOD COUNT 14.8 10^3/uL (4.0-10.5)
[2019-05-17 10:45] LABS: ABSOLUTE LYMPHOCYTES# (MANUAL) 2.4 10^3/uL (0.5-4.7); ABSOLUTE MONOCYTES # (MANUAL) 0.4 10^3/uL (0.1-1.4); ANION GAP 9 (5-19); BAND NEUTROPHILS % (MANUAL) 2 % (3-5); BASOPHILS % (MANUAL) 0 % (0-2); BLOOD UREA NITROGEN 25 mg/dL (7-20); CALCIUM 8.2 mg/dL (8.4-10.2); CARBON DIOXIDE 22 mmol/L (22-30); CHLORIDE 109 mmol/L (98-107); EOSINOPHILS % (MANUAL) 1 % (0-6); GLUCOSE 110 mg/dL (75-110); LYMPHOCYTES % (MANUAL) 16 % (13-45); MONOCYTES % (MANUAL) 3 % (3-13); NUCLEATED RED BLOOD CELLS 1 /100 WBC (0); POTASSIUM 4.6 mmol/L (3.6-5.0); SEGMENTED NEUTROPHILS % (MAN) 78 % (42-78); TOTAL CELLS COUNTED 100
[2019-05-17 10:48] LABS: ANISOCYTOSIS 2+; PLATELET COMMENT ADEQUATE; RBC MORPHOLOGY COMMENT NORMO-CYTIC/CHROMIC
[2019-05-17 10:49] LABS: POLYCHROMASIA SLIGHT
[2019-05-17 10:51] LABS: PLATELET COUNT 448 10^3/uL (150-450)
[2019-05-17] MEDS: ENOXAPARIN SODIUM INJ 40 MG/0.4 ML DISP.SYRIN SUBCUT SCH (11:34)
[2019-05-17] MEDS: FAMOTIDINE INJ/PF 20 MG/2 ML SDV IV SCH ×2 (11:38→22:17)
--- NOTE | 2019-05-17 21:40 | PDOC PROGRESS REPORT ---
Subjective Progress Note for:: 05/17/19 Reason For Visit: DIVERTICULAR ABSCESS Physical Exam Vital Signs: Temp Pulse Resp BP Pulse Ox 98.7 F 73 18 145/65 H 97 05/17/19 20:20 05/17/19 20:20 05/17/19 20:20 05/17/19 20:20 05/17/19 20:20 Intake & Output 05/16/19 05/17/19 05/18/19 06:59 06:59 06:59 Intake Total 3500 900 200 Output Total 1105 1100 800 Balance 2395 -200 -600 Weight 126.1 kg 129.9 kg 129.9 kg Results Laboratory Results: 05/17/19 10:07 05/17/19 10:07 05/17/19 05/17/19 10:07 10:07 WBC 14.8 H RBC 2.99 L Hgb 8.7 L Hct 26.7 L MCV 89 MCH 29.0 MCHC 32.4 RDW 17.9 H Plt Count 448 Seg Neutrophils % Not Reportable Sodium 140.2 Potassium 4.6 Chloride 109 H Carbon Dioxide 22 Anion Gap 9 BUN 25 H Creatinine 0.70 Est GFR ( Amer) > 60 Glucose 110 Calcium 8.2 L 05/12/19 16:10 Abdominal Fluid Gram Stain - Final Impressions: Acute Abdomen Series 05/11/19 13:26 IMPRESSION: NO RADIOGRAPHIC EVIDENCE FOR ACUTE ABDOMINAL DISEASE. Percutaneous Drainage 05/12/19 00:00 IMPRESSION: CT fluoroscopy guided 10 Czech drain placement of the deep pelvic collection as detailed above. Approximately 100 cc of turbid foul-smelling fluid was drained at the time of the procedure. A sample was sent to the lab for analysis. Recommend flushing catheter with 10 cc normal saline 3 times daily. Abdomen/Pelvis CT 05/14/19 07:00 IMPRESSION: Interval decrease in pelvic fluid collection status post percutaneous drain placement. Assessment & Plan - Diagnosis (1) Diverticulitis of intestine with abscess Qualifiers: Diverticulitis site: large intestine Diverticulitis bleeding: without bleeding Qualified Code(s): K57.20 - Diverticulitis of large intestine with perforation and abscess without bleeding Is this a current diagnosis for this admission?: Yes (2) Morbid obesity with BMI of 45.0-49.9, adult Is this a current diagnosis for this admission?: Yes - Time Time Spent with patient: Less than 15 minutes - Plan Summary Plan Summary: This is a 59-year-old female status post exploratory laparotomy, appendectomy, small bowel resection, sigmoid colon resection, and right oophorectomy. The patient is doing well today. Her drains are productive of serosanguineous outpu t. She reports air in her colostomy bag, but no significant output. Her colostomy is pink and healthy-appearing. Her midline incision is without sign of infection. Her retention sutures are still in place. Remove NG tube today. Continue with ice chips only. Awaiting bowel function. Incentive spirometer, aggressive pulmonary toilet. Out of bed today. Continue Levaquin and Flagyl. Leukocytosis improving.
[2019-05-17] MEDS: LEVOFLOXACIN 500 MG/D5W RTU 500 MG/100 ML RTUPB IV SCH (22:16)
[2019-05-17] MEDS: SERTRALINE HCL 50 MG TABLET PO SCH (22:27)
[2019-05-18] MEDS: KETOROLAC TROMETHAMINE INJ/PF 30 MG/1 ML SDV IV SCH ×3 (05:16→21:24)
[2019-05-18] MEDS: METRONIDAZOLE 500 MG/NS RTU 500 MG/100 ML RTUPB IV SCH ×3 (05:16→18:11)
[2019-05-18] MEDS: MORPHINE SULFATE 10 MG/ML INJ IV PRN ×4 (09:34→20:14)
[2019-05-18] MEDS: ENOXAPARIN SODIUM INJ 40 MG/0.4 ML DISP.SYRIN SUBCUT SCH (09:35)
[2019-05-18] MEDS: FAMOTIDINE INJ/PF 20 MG/2 ML SDV IV SCH ×2 (09:35→21:24)
[2019-05-18 10:29] LABS: HEMATOCRIT 24.4 % (36.0-47.0); MEAN CORPUSCULAR HEMOGLOBIN 28.9 pg (27.0-33.4); MEAN CORPUSCULAR HGB CONC 32.4 g/dL (32.0-36.0); MEAN CORPUSCULAR VOLUME 89 fl (80-97); PLATELET COUNT 449 10^3/uL (150-450); RED BLOOD COUNT 2.73 10^6/uL (3.72-5.28); RED CELL DISTRIBUTION WIDTH 18.4 % (11.5-14.0); WHITE BLOOD COUNT 14.6 10^3/uL (4.0-10.5)
[2019-05-18 10:34] LABS: HEMOGLOBIN 7.9 g/dL (12.0-15.5)
[2019-05-18 10:49] LABS: ANION GAP 9 (5-19); BLOOD UREA NITROGEN 22 mg/dL (7-20); CALCIUM 8.1 mg/dL (8.4-10.2); CARBON DIOXIDE 22 mmol/L (22-30); CHLORIDE 109 mmol/L (98-107); GLUCOSE 110 mg/dL (75-110); POTASSIUM 4.5 mmol/L (3.6-5.0)
[2019-05-18 11:06] LABS: ABSOLUTE LYMPHOCYTES# (MANUAL) 0.9 10^3/uL (0.5-4.7); ABSOLUTE MONOCYTES # (MANUAL) 0.7 10^3/uL (0.1-1.4); BAND NEUTROPHILS % (MANUAL) 6 % (3-5); BASOPHILS % (MANUAL) 1 % (0-2); EOSINOPHILS % (MANUAL) 1 % (0-6); LYMPHOCYTES % (MANUAL) 6 % (13-45); METAMYELOCYTES % (MANUAL) 2 % (0-1); MONOCYTES % (MANUAL) 5 % (3-13); SEGMENTED NEUTROPHILS % (MAN) 79 % (42-78); TOTAL CELLS COUNTED 100
[2019-05-18 11:09] LABS: ANISOCYTOSIS 2+; POIKILOCYTOSIS 1+; POLYCHROMASIA SLIGHT
[2019-05-18 11:10] LABS: PLATELET COMMENT ADEQUATE; ROULEAUX 1+; STOMATOCYTES 1+; TEAR DROP CELLS SLIGHT
[2019-05-18] MEDS: ONDANSETRON HCL INJ/PF 4 MG/2 ML SDV IV PRN (12:13)
--- NOTE | 2019-05-18 15:09 | PDOC PROGRESS REPORT ---
Subjective Progress Note for:: 05/18/19 Subjective:: less incisional pains. Hungry and wants Faroese Ice if possible Reason For Visit: DIVERTICULAR ABSCESS Physical Exam Vital Signs: Temp Pulse Resp BP Pulse Ox 98.5 F 67 18 142/59 H 96 05/18/19 11:10 05/18/19 11:10 05/18/19 11:10 05/18/19 11:10 05/18/19 11:10 Intake & Output 05/17/19 05/18/19 05/19/19 06:59 06:59 06:59 Intake Total 900 600 280 Output Total 1100 800 150 Balance -200 -200 130 Weight 129.9 kg 131.5 kg General appearance: PRESENT: no acute distress Exam: Abdomen is soft with an abdominal binder. Colostomy is pink but bag has only about 10 ccs of clear yellowish fluid with minimal air. Results Laboratory Results: 05/18/19 10:09 05/18/19 10:09 05/18/19 05/18/19 05/18/19 10:09 10:09 11:25 WBC 14.6 H RBC 2.73 L Hgb 7.9 L Hct 24.4 L MCV 89 MCH 28.9 MCHC 32.4 RDW 18.4 H Plt Count 449 Seg Neutrophils % Not Reportable Sodium 140.3 Potassium 4.5 Chloride 109 H Carbon Dioxide 22 Anion Gap 9 BUN 22 H Creatinine 0.65 Est GFR ( Amer) > 60 Glucose 110 Calcium 8.1 L Blood Type O NEGATIVE Antibody Screen NEGATIVE 05/12/19 16:10 Abdominal Fluid Gram Stain - Final 05/12/19 16:10 Abdominal Fluid Body Fluid Culture - Final Group F Beta Streptococcus Bacteroides Fragilis Group Anaerococcus (Peptostrep) Sp. Impressions: Acute Abdomen Series 05/11/19 13:26 IMPRESSION: NO RADIOGRAPHIC EVIDENCE FOR ACUTE ABDOMINAL DISEASE. Percutaneous Drainage 05/12/19 00:00 IMPRESSION: CT fluoroscopy guided 10 Indonesian drain placement of the deep pelvic collection as detailed above. Approximately 100 cc of turbid foul-smelling fluid was drained at the time of the procedure. A sample was sent to the lab for analysis. Recommend flushing catheter with 10 cc normal saline 3 times daily. Abdomen/Pelvis CT 05/14/19 07:00 IMPRESSION: Interval decrease in pelvic fluid collection status post percutaneous drain placement. Assessment & Plan - Diagnosis (1) Diverticulitis of intestine with abscess Qualifiers: Diverticulitis site: large intestine Diverticulitis bleeding: without bleeding Qualified Code(s): K57.20 - Diverticulitis of large intestine with perforation and abscess without bleeding Is this a current diagnosis for this admission?: Yes - Time Time Spent with patient: 15-24 minutes - Inpatient Certification Medical Necessity: Need For IV Fluids, Need for IV Antibiotics - Plan Summary Plan Summary: POD #4 for Jose De Jesus's procedure with small bowel resection and appendectomy for perf diverticulitis with abscess Plans: Continue ice chips,fluids.Iv antibiotics
[2019-05-18] MEDS: SERTRALINE HCL 50 MG TABLET PO SCH (21:21)
[2019-05-19] MEDS: MORPHINE SULFATE 10 MG/ML INJ IV PRN ×3 (02:38→21:06)
[2019-05-19] MEDS: KETOROLAC TROMETHAMINE INJ/PF 30 MG/1 ML SDV IV SCH ×2 (05:06→13:11)
[2019-05-19] MEDS: RINGERS SOLUTION,LACTATED 1,000 ML IV PRN ×2 (05:08→18:14)
[2019-05-19] MEDS: ONDANSETRON HCL INJ/PF 4 MG/2 ML SDV IV PRN (08:38)
[2019-05-19 10:52] LABS: HEMATOCRIT 29.5 % (36.0-47.0); HEMOGLOBIN 9.8 g/dL (12.0-15.5); MEAN CORPUSCULAR HEMOGLOBIN 28.9 pg (27.0-33.4); MEAN CORPUSCULAR HGB CONC 33.1 g/dL (32.0-36.0); MEAN CORPUSCULAR VOLUME 87 fl (80-97); PLATELET COUNT 494 10^3/uL (150-450); RED BLOOD COUNT 3.38 10^6/uL (3.72-5.28); RED CELL DISTRIBUTION WIDTH 17.1 % (11.5-14.0); WHITE BLOOD COUNT 16.3 10^3/uL (4.0-10.5)
[2019-05-19] MEDS: ENOXAPARIN SODIUM INJ 40 MG/0.4 ML DISP.SYRIN SUBCUT SCH (10:56)
[2019-05-19] MEDS: FAMOTIDINE INJ/PF 20 MG/2 ML SDV IV SCH ×2 (10:56→21:07)
[2019-05-19 11:08] LABS: ANION GAP 9 (5-19); BLOOD UREA NITROGEN 18 mg/dL (7-20); CARBON DIOXIDE 24 mmol/L (22-30); CHLORIDE 107 mmol/L (98-107); GLUCOSE 102 mg/dL (75-110); POTASSIUM 4.4 mmol/L (3.6-5.0)
[2019-05-19 11:29] LABS: ABSOLUTE LYMPHOCYTES# (MANUAL) 1.3 10^3/uL (0.5-4.7); BAND NEUTROPHILS % (MANUAL) 5 % (3-5); BASOPHILS % (MANUAL) 0 % (0-2); EOSINOPHILS % (MANUAL) 3 % (0-6); LYMPHOCYTES % (MANUAL) 8 % (13-45); METAMYELOCYTES % (MANUAL) 1 % (0-1); MONOCYTES % (MANUAL) 6 % (3-13); SEGMENTED NEUTROPHILS % (MAN) 77 % (42-78); TOTAL CELLS COUNTED 100
[2019-05-19 11:33] LABS: POLYCHROMASIA SLIGHT
[2019-05-19 11:34] LABS: ANISOCYTOSIS 1+
[2019-05-19 11:37] LABS: PLATELET COMMENT INCREASED
--- NOTE | 2019-05-19 13:56 | PDOC PROGRESS REPORT ---
Subjective Progress Note for:: 05/19/19 Subjective:: more comfortable Reason For Visit: DIVERTICULAR ABSCESS Physical Exam Vital Signs: Temp Pulse Resp BP Pulse Ox 97.2 F 67 17 154/74 H 94 05/19/19 11:05 05/19/19 11:05 05/19/19 11:05 05/19/19 11:05 05/19/19 11:05 Intake & Output 05/18/19 05/19/19 05/20/19 06:59 06:59 06:59 Intake Total 600 900 Output Total 800 880 Balance -200 20 Weight 131.5 kg 130 kg 130 kg Exam: colostomy starting to function with passage of a lot of air Results Laboratory Results: 05/19/19 10:15 05/19/19 10:15 05/18/19 05/19/19 05/19/19 11:25 10:15 10:15 WBC 16.3 H RBC 3.38 L Hgb 9.8 L Hct 29.5 L MCV 87 MCH 28.9 MCHC 33.1 RDW 17.1 H Plt Count 494 H Seg Neutrophils % Not Reportable Sodium 139.7 Potassium 4.4 Chloride 107 Carbon Dioxide 24 Anion Gap 9 BUN 18 Creatinine 0.63 Est GFR ( Amer) > 60 Glucose 102 Calcium 8.0 L Blood Type O NEGATIVE Antibody Screen NEGATIVE 05/12/19 16:10 Abdominal Fluid Gram Stain - Final 05/12/19 16:10 Abdominal Fluid Body Fluid Culture - Final Group F Beta Streptococcus Bacteroides Fragilis Group Anaerococcus (Peptostrep) Sp. Impressions: Acute Abdomen Series 05/11/19 13:26 IMPRESSION: NO RADIOGRAPHIC EVIDENCE FOR ACUTE ABDOMINAL DISEASE. Percutaneous Drainage 05/12/19 00:00 IMPRESSION: CT fluoroscopy guided 10 [place] drain placement of the deep pelvic collection as detailed above. Approximately 100 cc of turbid foul-smelling fluid was drained at the time of the procedure. A sample was sent to the lab for analysis. Recommend flushing catheter with 10 cc normal saline 3 times daily. Abdomen/Pelvis CT 05/14/19 07:00 IMPRESSION: Interval decrease in pelvic fluid collection status post percutaneous drain placement. Assessment & Plan - Diagnosis (1) Diverticulitis of intestine with abscess Qualifiers: Diverticulitis site: large intestine Diverticulitis bleeding: without bleeding Qualified Code(s): K57.20 - Diverticulitis of large intestine with perforation and abscess without bleeding Is this a current diagnosis for this admission?: Yes - Time Time Spent with patient: 15-24 minutes - Inpatient Certification Medical Necessity: Need For IV Fluids, Need for IV Antibiotics - Plan Summary Plan Summary: POD#5 post Jose De Jesus's and SBR, Appendectomy for Acute diverticulitis,abscess Plan Start clears then advance slowly as tolerated Continue IV antibiotics Consult discharge planning nurse for Rehab placement
[2019-05-19] MEDS: SERTRALINE HCL 50 MG TABLET PO SCH (21:00)
[2019-05-20] MEDS: RINGERS SOLUTION,LACTATED 1,000 ML IV PRN ×2 (04:52→17:31)
[2019-05-20] MEDS: MORPHINE SULFATE 10 MG/ML INJ IV PRN (08:52)
[2019-05-20 09:40] LABS: HEMATOCRIT 28.6 % (36.0-47.0); HEMOGLOBIN 9.6 g/dL (12.0-15.5); MEAN CORPUSCULAR HEMOGLOBIN 29.2 pg (27.0-33.4); MEAN CORPUSCULAR HGB CONC 33.5 g/dL (32.0-36.0); MEAN CORPUSCULAR VOLUME 87 fl (80-97); PLATELET COUNT 471 10^3/uL (150-450); RED BLOOD COUNT 3.29 10^6/uL (3.72-5.28); WHITE BLOOD COUNT 14.7 10^3/uL (4.0-10.5)
[2019-05-20 10:32] LABS: ABSOLUTE LYMPHOCYTES# (MANUAL) 2.4 10^3/uL (0.5-4.7); ABSOLUTE MONOCYTES # (MANUAL) 0.6 10^3/uL (0.1-1.4); BAND NEUTROPHILS % (MANUAL) 2 % (3-5); BASOPHILS % (MANUAL) 1 % (0-2); EOSINOPHILS % (MANUAL) 2 % (0-6); LYMPHOCYTES % (MANUAL) 16 % (13-45); METAMYELOCYTES % (MANUAL) 1 % (0-1); MONOCYTES % (MANUAL) 4 % (3-13); SEGMENTED NEUTROPHILS % (MAN) 74 % (42-78); TOTAL CELLS COUNTED 100
[2019-05-20 10:33] LABS: ANISOCYTOSIS 1+; OVALOCYTES SLIGHT; PLATELET COMMENT ADEQUATE; POLYCHROMASIA SLIGHT; TOXIC GRANULATION 1+
[2019-05-20] MEDS: ENOXAPARIN SODIUM INJ 40 MG/0.4 ML DISP.SYRIN SUBCUT SCH (10:58)
[2019-05-20] MEDS: FAMOTIDINE INJ/PF 20 MG/2 ML SDV IV SCH ×2 (11:30→22:36)
--- NOTE | 2019-05-20 12:59 | PDOC PROGRESS REPORT ---
Subjective Progress Note for:: 05/20/19 Subjective:: Patient doing reasonably well, tolerating clear liquid diet now advanced to full's. Voiding, transferring bed to chair. Complaining of left leg pain, lateral popliteal area. Drain still in. Intravenous antibiotics off. Reason For Visit: DIVERTICULAR ABSCESS Physical Exam Vital Signs: Temp Pulse Resp BP Pulse Ox 97.8 F 64 17 152/71 H 94 05/20/19 08:08 05/20/19 09:59 05/20/19 08:08 05/20/19 09:59 05/20/19 08:08 Intake & Output 05/19/19 05/20/19 05/21/19 06:59 06:59 06:59 Intake Total 900 2480 Output Total 880 600 Balance 20 1880 Weight 130 kg 130 kg General appearance: PRESENT: no acute distress GI/Abdominal exam: PRESENT: other - Large amount of gas in ostomy bag. #2 drain with minimal serosanguineous fluid removed uneventfully. Midline wound approximated with ghassan, open area is beginning to granulate in, fairly clean. Results Laboratory Results: 05/20/19 09:08 05/19/19 10:15 05/20/19 09:08 WBC 14.7 H RBC 3.29 L Hgb 9.6 L Hct 28.6 L MCV 87 MCH 29.2 MCHC 33.5 RDW 17.0 H Plt Count 471 H Seg Neutrophils % Not Reportable Impressions: Acute Abdomen Series 05/11/19 13:26 IMPRESSION: NO RADIOGRAPHIC EVIDENCE FOR ACUTE ABDOMINAL DISEASE. Percutaneous Drainage 05/12/19 00:00 IMPRESSION: CT fluoroscopy guided 10 [place]an drain placement of the deep pelvic collection as detailed above. Approximately 100 cc of turbid foul-smelling fluid was drained at the time of the procedure. A sample was sent to the lab for analysis. Recommend flushing catheter with 10 cc normal saline 3 times daily. Abdomen/Pelvis CT 05/14/19 07:00 IMPRESSION: Interval decrease in pelvic fluid collection status post percutaneous drain placement. Assessment & Plan - Diagnosis (1) Diverticulitis of intestine with abscess Qualifiers: Diverticulitis site: large intestine Diverticulitis bleeding: without bleeding Qualified Code(s): K57.20 - Diverticulitis of large intestine with perforation and abscess without bleeding Is this a current diagnosis for this admission?: Yes Plan: Impression: Patient is 6 days status post exploratory laparotomy, sigmoid colectomy, colostomy, partial small bowel obstruction for perforated, complicated sigmoid diverticulitis, with ischemic changes to small bowel, doing well with return of bowel function. Recommendations: 1. Currently intravenous antibiotics discontinued; leukocytosis 16,000; this bears monitoring 2. Will increase aggressiveness of midline dressing changes 3. We will check urine analysis to rule out infection per patient and family's request 4. We will check venous duplex to rule out DVT left lower extremity. Patient has reportedly refusing Lovenox injections - Time Time Spent with patient: Less than 15 minutes
[2019-05-20 14:24] LABS: APPEARANCE,URINE CLEAR; BILIRUBIN,URINE NEGATIVE (NEGATIVE); COLOR,URINE YELLOW; GLUCOSE, URINE NEGATIVE (NEGATIVE); KETONES,URINE NEGATIVE (NEGATIVE); LEUKOCYTE ESTERASE,URINE NEGATIVE (NEGATIVE); NITRITE,URINE NEGATIVE (NEGATIVE); PROTEIN,URINE NEGATIVE (NEGATIVE); URINE SPECIFIC GRAVITY 1.005; UROBILINOGEN,URINE NEGATIVE mg/dL (<2.0)
[2019-05-20] MEDS ORDERED: KETOROLAC TROMETHAMINE INJ/PF 30 MG/1 ML SDV IV PRN ×2 (17:30→18:00)
[2019-05-20] MEDS: OXYCODONE-ACETAMINOPHEN 5-325 MG TABLET PO PRN (22:36)
[2019-05-20] MEDS: SERTRALINE HCL 50 MG TABLET PO SCH (22:37)
--- NOTE | 2019-05-21 00:50 | XCELERA REPORT ---
[address] [place] [facility] [address] Lower Extremity Venous Evaluation Procedure: Color flow and duplex imaging of the veins of the left lower extremity as well as the right Common Femoral vein. Right Sided Venous Evaluation The right common femoral vein is fully compressible. Spontaneous and phasic flow is present in the right common femoral vein. Left Sided Venous Evaluation Normal vessel filling wall to wall, compression and augmentation as well as Colour flow down to the infrageniculate veins. Interpretation Summary No duplex evidence of DVT or obstruction in the left lower extremity nor in the right Common Femoral vein. Name: JP GILES Age: 59 yrs Gender: Female : 1960 Patient Status: Inpatient Patient Location: [address] [place], [place] [id number] Study Date: 05/20/2019 07:40 PM Reason For Study: RULE OUT LEFT LOWER EXTREMITY DVT Ordering Physician: MERARY ROJAS Performed By: Jeimy Bernabe : MERARY ROJAS > Yuriy Reich
[2019-05-21] MEDS: RINGERS SOLUTION,LACTATED 1,000 ML IV PRN (05:51)
[2019-05-21] MEDS: ONDANSETRON HCL INJ/PF 4 MG/2 ML SDV IV PRN (08:51)
[2019-05-21 10:33] LABS: HEMATOCRIT 29.2 % (36.0-47.0); HEMOGLOBIN 9.6 g/dL (12.0-15.5); MEAN CORPUSCULAR VOLUME 88 fl (80-97); PLATELET COUNT 477 10^3/uL (150-450); RED BLOOD COUNT 3.33 10^6/uL (3.72-5.28); RED CELL DISTRIBUTION WIDTH 17.1 % (11.5-14.0)
[2019-05-21] MEDS: ENOXAPARIN SODIUM INJ 40 MG/0.4 ML DISP.SYRIN SUBCUT SCH (10:33)
[2019-05-21] MEDS: FAMOTIDINE INJ/PF 20 MG/2 ML SDV IV SCH ×2 (10:34→21:11)
[2019-05-21] MEDS: OXYCODONE-ACETAMINOPHEN 5-325 MG TABLET PO PRN ×2 (10:34→21:10)
[2019-05-21 10:54] LABS: ABSOLUTE LYMPHOCYTES# (MANUAL) 1.6 10^3/uL (0.5-4.7); ABSOLUTE MONOCYTES # (MANUAL) 0.7 10^3/uL (0.1-1.4); BAND NEUTROPHILS % (MANUAL) 3 % (3-5); BASOPHILS % (MANUAL) 0 % (0-2); EOSINOPHILS % (MANUAL) 5 % (0-6); LYMPHOCYTES % (MANUAL) 12 % (13-45); METAMYELOCYTES % (MANUAL) 1 % (0-1); MONOCYTES % (MANUAL) 5 % (3-13); SEGMENTED NEUTROPHILS % (MAN) 74 % (42-78); TOTAL CELLS COUNTED 100
[2019-05-21 10:57] LABS: ANISOCYTOSIS 1+; PLATELET COMMENT ADEQUATE; PLATELET LARGE PRESENT; POLYCHROMASIA SLIGHT
--- NOTE | 2019-05-21 20:05 | PDOC PROGRESS REPORT ---
Subjective Progress Note for:: 05/21/19 Subjective:: Less incisional pains and tolerated full liquid diet Reason For Visit: DIVERTICULAR ABSCESS Physical Exam Vital Signs: Temp Pulse Resp BP Pulse Ox 98.1 F 67 20 164/78 H 96 05/21/19 17:00 05/21/19 17:00 05/21/19 17:00 05/21/19 17:00 05/21/19 17:00 Intake & Output 05/20/19 05/21/19 05/22/19 06:59 06:59 06:59 Intake Total 2480 2120 1118 Output Total 700 1840 1100 Balance 1780 280 18 Weight 130 kg 128.7 kg Exam: Colostomy continues to function well. Abdominal incision has few open areas being managed with wet-to-dry dressings MATTHEW drainage decreasing. Results Laboratory Results: 05/21/19 10:00 05/19/19 10:15 05/21/19 10:00 WBC 13.0 H RBC 3.33 L Hgb 9.6 L Hct 29.2 L MCV 88 MCH 29.0 MCHC 33.0 RDW 17.1 H Plt Count 477 H Seg Neutrophils % Not Reportable Impressions: Acute Abdomen Series 05/11/19 13:26 IMPRESSION: NO RADIOGRAPHIC EVIDENCE FOR ACUTE ABDOMINAL DISEASE. Percutaneous Drainage 05/12/19 00:00 IMPRESSION: CT fluoroscopy guided 10 [place]an drain placement of the deep pelvic collection as detailed above. Approximately 100 cc of turbid foul-smelling fluid was drained at the time of the procedure. A sample was sent to the lab fo r analysis. Recommend flushing catheter with 10 cc normal saline 3 times daily. Abdomen/Pelvis CT 05/14/19 07:00 IMPRESSION: Interval decrease in pelvic fluid collection status post percutaneous drain placement. Assessment & Plan - Diagnosis (1) Diverticulitis of intestine with abscess Qualifiers: Diverticulitis site: large intestine Diverticulitis bleeding: without bleeding Qualified Code(s): K57.20 - Diverticulitis of large intestine with perforation and abscess without bleeding Is this a current diagnosis for this admission?: Yes - Time Time Spent with patient: 15-24 minutes - Inpatient Certification Medical Necessity: Need For IV Fluids, Risk of Complication if Not Cared For in Hospital - Plan Summary Plan Summary: Plans Start soft diet today. Possible transfer to rehab facility in the next 24 to 48hours. We will DC the MATTHEW drain
[2019-05-21] MEDS: SERTRALINE HCL 50 MG TABLET PO SCH (21:11)
[2019-05-22] MEDS: ENOXAPARIN SODIUM INJ 40 MG/0.4 ML DISP.SYRIN SUBCUT SCH (09:28)
[2019-05-22] MEDS: FAMOTIDINE INJ/PF 20 MG/2 ML SDV IV SCH ×2 (09:28→22:00)
--- NOTE | 2019-05-22 09:44 | PDOC PROGRESS REPORT ---
Subjective Progress Note for:: 05/22/19 Subjective:: Patient doing well, tolerating regular diet. Getting up and walking. Ostomy functioning; less abdominal wall pain. Reason For Visit: DIVERTICULAR ABSCESS Physical Exam Vital Signs: Temp Pulse Resp BP Pulse Ox 97.9 F 60 18 152/70 H 97 05/22/19 07:15 05/22/19 07:15 05/22/19 07:15 05/22/19 07:15 05/22/19 07:15 Intake & Output 05/21/19 05/22/19 05/23/19 06:59 06:59 06:59 Intake Total 2120 1268 Output Total 1840 1141 Balance 280 127 Weight 128.7 kg 128.9 kg General appearance: PRESENT: other - Chronic shortness of breath GI/Abdominal exam: PRESENT: other - Resting removed; open areas beginning to granulate in; retention sutures in place. Ostomy functioning satisfactorily. Results Laboratory Results: 05/21/19 10:00 05/19/19 10:15 05/21/19 10:00 WBC 13.0 H RBC 3.33 L Hgb 9.6 L Hct 29.2 L MCV 88 MCH 29.0 MCHC 33.0 RDW 17.1 H Plt Count 477 H Seg Neutrophils % Not Reportable Impressions: Acute Abdomen Series 05/11/19 13:26 IMPRESSION: NO RADIOGRAPHIC EVIDENCE FOR ACUTE ABDOMINAL DISEASE. Percutaneous Drainage 05/12/19 00:00 IMPRESSION: CT fluoroscopy guided 10 Vietnamese drain placement of the deep pelvic collection as detailed above. Approximately 100 cc of turbid foul-smelling fluid was drained at the time of the procedure. A sample was sent to the lab for analysis. Recommend flushing catheter with 10 cc normal saline 3 times daily. Abdomen/Pelvis CT 05/14/19 07:00 IMPRESSION: Interval decrease in pelvic fluid collection status post percutaneous drain placement. Assessment & Plan - Diagnosis (1) Diverticulitis of intestine with abscess Qualifiers: Diverticulitis site: large intestine Diverticulitis bleeding: without bleeding Qualified Code(s): K57.20 - Diverticulitis of large intestine with perforation and abscess without bleeding Is this a current diagnosis for this admission?: Yes Plan: ImPression: Postoperative day 8 status post exploratory laparotomy colectomy, appendectomy, colostomy for complicated diverticular disease, doing well, off antibiotics, learning to manage abdominal wall issues, ostomy Recommendations: 1. Saline lock 2. Await discharge planning evaluation for SNF placement - Time Time Spent with patient: 15-24 minutes Medications reviewed and adjusted accordingly: Yes Anticipated discharge: SNF
[2019-05-22 10:59] LABS: HEMOGLOBIN 9.8 g/dL (12.0-15.5); MEAN CORPUSCULAR HGB CONC 32.6 g/dL (32.0-36.0); MEAN CORPUSCULAR VOLUME 89 fl (80-97); PLATELET COUNT 499 10^3/uL (150-450); RED BLOOD COUNT 3.38 10^6/uL (3.72-5.28); RED CELL DISTRIBUTION WIDTH 17.9 % (11.5-14.0); WHITE BLOOD COUNT 11.8 10^3/uL (4.0-10.5)
[2019-05-22 11:31] LABS: ABSOLUTE LYMPHOCYTES# (MANUAL) 1.5 10^3/uL (0.5-4.7); ABSOLUTE MONOCYTES # (MANUAL) 0.5 10^3/uL (0.1-1.4); BASOPHILS % (MANUAL) 0 % (0-2); EOSINOPHILS % (MANUAL) 3 % (0-6); LYMPHOCYTES % (MANUAL) 13 % (13-45); MONOCYTES % (MANUAL) 4 % (3-13); SEGMENTED NEUTROPHILS % (MAN) 80 % (42-78); TOTAL CELLS COUNTED 100
[2019-05-22 11:33] LABS: ANISOCYTOSIS 1+
[2019-05-22 11:34] LABS: OVALOCYTES SLIGHT; PLATELET COMMENT ADEQUATE; POLYCHROMASIA 1+
[2019-05-22] MEDS: OXYCODONE-ACETAMINOPHEN 5-325 MG TABLET PO PRN (17:15)
[2019-05-22] MEDS: SERTRALINE HCL 50 MG TABLET PO SCH (22:00)
[2019-05-23] MEDS: OXYCODONE-ACETAMINOPHEN 5-325 MG TABLET PO PRN ×2 (05:45→20:03)
[2019-05-23] MEDS: FAMOTIDINE INJ/PF 20 MG/2 ML SDV IV SCH ×2 (10:34→21:29)
[2019-05-23] MEDS: ENOXAPARIN SODIUM INJ 40 MG/0.4 ML DISP.SYRIN SUBCUT SCH (10:34)
--- NOTE | 2019-05-23 17:57 | PDOC PROGRESS REPORT ---
Subjective Progress Note for:: 05/23/19 Subjective:: minimal incisional pains Reason For Visit: DIVERTICULAR ABSCESS Physical Exam Vital Signs: Temp Pulse Resp BP Pulse Ox 98.0 F 61 18 159/76 H 95 05/23/19 15:10 05/23/19 15:10 05/23/19 15:10 05/23/19 15:10 05/23/19 15:10 Intake & Output 05/22/19 05/23/19 05/24/19 06:59 06:59 06:59 Intake Total 1268 1016 354 Output Total 1141 400 Balance 127 616 354 Weight 128.9 kg 129.3 kg Exam: ileostomy functioning well Wet to dry dressings over incision intact Results Laboratory Results: 05/22/19 10:21 05/19/19 10:15 Impressions: Acute Abdomen Series 05/11/19 13:26 IMPRESSION: NO RADIOGRAPHIC EVIDENCE FOR ACUTE ABDOMINAL DISEASE. Percutaneous Drainage 05/12/19 00:00 IMPRESSION: CT fluoroscopy guided 10 Arabic drain placement of the deep pelvic collection as detailed above. Approximately 100 cc of turbid foul-smelling fluid was drained at the time of the procedure. A sample was sent to the lab for analysis. Recommend flushing catheter with 10 cc normal saline 3 times daily. Abdomen/Pelvis CT 05/14/19 07:00 IMPRESSION: Interval decrease in pelvic fluid collection status post p ercutaneous drain placement. Assessment & Plan - Diagnosis (1) Diverticulitis of intestine with abscess Qualifiers: Diverticulitis site: large intestine Diverticulitis bleeding: without bleeding Qualified Code(s): K57.20 - Diverticulitis of large intestine with perforation and abscess without bleeding Is this a current diagnosis for this admission?: Yes - Time Time Spent with patient: 15-24 minutes - Inpatient Certification Medical Necessity: Need Close Monitoring Due to Risk of Patient Decompensation, Risk of Complication if Not Cared For in Hospital - Plan Summary Plan Summary: Plans: Awaiting final approval from insurance for rehab placement,hopefully in 24 hrs. Continue reg diet and ambulation
[2019-05-23] MEDS: SERTRALINE HCL 50 MG TABLET PO SCH (21:29)
[2019-05-24 10:47] LABS: INTERNATIONAL RATION (INR) 1.02; PROTHROMBIN TIME 13.5 SEC (11.4-15.4)
[2019-05-24] MEDS: ENOXAPARIN SODIUM INJ 40 MG/0.4 ML DISP.SYRIN SUBCUT SCH (11:07)
[2019-05-24] MEDS: FAMOTIDINE INJ/PF 20 MG/2 ML SDV IV SCH (11:08)
--- NOTE | 2019-05-24 11:42 | PDOC DISCHARGE SUMMARY ---
General - Admit/Disc Date/PCP Admission Date/Primary Care Provider: 05/11/19 19:51 LENCHO HENDERSON, Discharge Date: 05/24/19 - Discharge Diagnosis Final Diagnosis: Perforated diverticulitis, intra-abdominal abscess - Assessment Summary: 59-year-old female, admitted with perforated diverticulitis and pelvic abscess. A percutaneous drainage catheter was placed, however failed to resolve her abscess adequately. After 48 hours of drainage, there was still a large residual abscess. Secondary to this reason, the patient was taken to the operating room for surgical intervention. The patient had a dense inflammatory reaction in the pelvis. Removal of the sigmoid colon required removal of the terminal ileum, as well as removal of the appendix, due to inflammation spreading across the lower abdomen. A descending colostomy was felt prudent. The patient's abdomen was closed with retention sutures. Her wound was packed with Xeroform gauze. The patient was then taken to the floor in stable condition. Over the subsequent days, the patient's NG tube was removed, her colostomy began functioning, and she began tolerating a diet. She was transitioned to oral pain medications. She began getting out of bed with assistance. Nursing staff was changing the dressing. Rehab services was consulted to evaluate the patient for an inpatient rehabilitation stay. This has been approved. Transfer patient to rehab. - Additional Information Resuscitation Status: Full Code Discharge Diet: As Tolerated Discharge Activity: No Lifting Over 10 Pounds, No Lifting/Push/Pulling Referrals: [facility] [Outside] CURTIS CHILDERS MD [ACTIVE STAFF] - 06/12/19 10:45 am Home Medications: Levothyroxine Sodium [Synthroid 0.112 mg Tablet] 0.112 mg PO Q6AM 05/11/19 Sertraline HCl [Zoloft 50 mg Tablet] 100 mg PO DAILY 05/11/19 Temazepam [Restoril 15 mg Capsule] 15 mg PO HSP PRN 05/11/19 Additional Information: Discharge to rehab. Diet as tolerated. Activity: No lifting greater than 10 pounds x 6 weeks after surgery. Leave retention sutures in place. Follow-up with [facility] in 10-14 days for removal of retention sutures. Continue with damp to dry dressing changes twice daily. [place] 10/325 mg p.o. every 6 hours PRN for pain. Ibuprofen 800 mg p.o. 3 times daily with meals. History of Present Illiness History of Present Illness: JP GILES is a 59 year old female Physical Exam Vital Signs: Temp Pulse Resp BP Pulse Ox 97.4 F 63 18 161/81 H 96 05/24/19 07:44 05/24/19 07:44 05/24/19 07:44 05/24/19 07:44 05/24/19 07:44 Intake & Output 05/23/19 05/24/19 05/25/19 06:59 06:59 06:59 Intake Total 1016 354 Output Total 400 Balance 616 354 Weight 129.3 kg 128.7 kg Results Laboratory Results: WBC 11.8 10^3/uL (4.0-10.5) H 05/22/19 10:21 RBC 3.38 10^6/uL (3.72-5.28) L 05/22/19 10:21 Hgb 9.8 g/dL (12.0-15.5) L 05/22/19 10:21 Hct 30.0 % (36.0-47.0) L 05/22/19 10:21 MCV 89 fl (80-97) 05/22/19 10:21 MCH 29.0 pg (27.0-33.4) 05/22/19 10:21 MCHC 32.6 g/dL (32.0-36.0) 05/22/19 10:21 RDW 17.9 % (11.5-14.0) H 05/22/19 10:21 Plt Count 499 10^3/uL (150-450) H 05/22/19 10:21 Lymph % (Auto) Not Reportable 05/22/19 10:21 [place] % (Auto) Not Reportable 05/22/19 10:21 Eos % (Auto) Not Reportable 05/22/19 10:21 Baso % (Auto) Not Reportable 05/22/19 10:21 Absolute Neuts (auto) Not Reportable 05/22/19 10:21 Absolute Lymphs (auto) Not Reportable 05/22/19 10:21 Absolute Monos (auto) Not Reportable 05/22/19 10:21 Absolute Eos (auto) Not Reportable 05/22/19 10:21 Absolute Basos (auto) Not Reportable 05/22/19 10:21 Total Counted 100 05/22/19 10:21 Seg Neutrophils % Not Reportable 05/22/19 10:21 Seg Neuts % (Manual) 80 % (42-78) H 05/22/19 10:21 Band Neutrophils % 3 % (3-5) 05/21/19 10:00 Lymphocytes % (Manual) 13 % (13-45) 05/22/19 10:21 Atypical Lymphs % 1 % (0) 05/15/19 10:23 Monocytes % (Manual) 4 % (3-13) 05/22/19 10:21 Eosinophils % (Manual) 3 % (0-6) 05/22/19 10:21 Basophils % (Manual) 0 % (0-2) 05/22/19 10:21 Metamyelocytes % 1 % (0-1) 05/21/19 10:00 Abs Neuts (Manual) 9.4 10^3/uL (1.7-8.2) H 05/22/19 10:21 Abs Lymphs (Manual) 1.5 10^3/uL (0.5-4.7) 05/22/19 10:21 Abs Monocytes (Manual) 0.5 10^3/uL (0.1-1.4) 05/22/19 10:21 Absolute Eos (Manual) 0.4 10^3/uL (0.0-0.6) 05/22/19 10:21 Abs Basophils (Manual) 0.0 10^3/uL (0.0-0.2) 05/22/19 10:21 Nucleated RBCs 1 /100 WBC (0) 05/17/19 10:07 Toxic Granulation 1+ 05/20/19 09:08 WBC Morphology Comment 0 05/15/19 10:23 Clumped Platelets PRESENT 05/11/19 15:29 Large Platelets PRESENT 05/21/19 10:00 Platelet Comment ADEQUATE 05/22/19 10:21 Polychromasia 1+ 05/22/19 10:21 Hypochromasia SLIGHT 05/16/19 09:27 Poikilocytosis 1+ 05/18/19 10:09 Basophilic Stippling PRESENT 05/19/19 10:15 Anisocytosis 1+ 05/22/19 10:21 Tear Drop Cells SLIGHT 05/18/19 10:09 Ovalocytes SLIGHT 05/22/19 10:21 Stomatocytes 1+ 05/18/19 10:09 Rouleaux 1+ 05/18/19 10:09 RBC Morph Comment NORMO-CYTIC/CHROMIC 05/17/19 10:07 PT 13.5 SEC (11.4-15.4) 05/24/19 10:18 INR 1.02 05/24/19 10:18 APTT 38.4 SEC (23.5-35.8) H 05/12/19 12:09 Sodium 139.7 mmol/L (137-145) 05/19/19 10:15 Potassium 4.4 mmol/L (3.6-5.0) 05/19/19 10:15 Chloride 107 mmol/L (98-107) 05/19/19 10:15 Carbon Dioxide 24 mmol/L (22-30) 05/19/19 10:15 Anion Gap 9 (5-19) 05/19/19 10:15 BUN 18 mg/dL (7-20) 05/19/19 10:15 Creatinine 0.63 mg/dL (0.52-1.25) 05/19/19 10:15 Est GFR ( Amer) > 60 (>60) 05/19/19 10:15 Est GFR (MDRD) Non-Af > 60 (>60) 05/19/19 10:15 Glucose 102 mg/dL (75-110) 05/19/19 10:15 Calcium 8.0 mg/dL (8.4-10.2) L 05/19/19 10:15 Total Bilirubin 1.1 mg/dL (0.2-1.3) 05/12/19 08:20 Direct Bilirubin 0.7 mg/dL (0.0-0.4) H 05/12/19 08:20 Neonat Total Bilirubin Not Reportable 05/12/19 08:20 Neonat Direct Bilirubin Not Reportable 05/12/19 08:20 Neonat Indirect Bili Not Reportable 05/12/19 08:20 AST 17 U/L (14-36) 05/12/19 08:20 ALT 24 U/L (<35) 05/12/19 08:20 Alkaline Phosphatase 177 U/L (38-126) H 05/12/19 08:20 Total Protein 5.7 g/dL (6.3-8.2) L 05/12/19 08:20 Albumin 2.7 g/dL (3.5-5.0) L 05/12/19 08:20 Lipase 36.6 U/L (23-300) 05/11/19 15:29 Urine Color YELLOW 05/20/19 13:55 Urine Appearance CLEAR 05/20/19 13:55 Urine pH 7.0 (5.0-9.0) 05/20/19 13:55 Ur Specific [place] 1.005 05/20/19 13:55 Urine Protein NEGATIVE mg/dL (NEGATIVE) 05/20/19 13:55 Urine Glucose (UA) NEGATIVE mg/dL (NEGATIVE) 05/20/19 13:55 Urine Ketones NEGATIVE mg/dL (NEGATIVE) 05/20/19 13:55 Urine Blood NEGATIVE (NEGATIVE) 05/20/19 13:55 Urine Nitrite NEGATIVE (NEGATIVE) 05/20/19 13:55 Urine Nitrite (Reflex) NEGATIVE (NEGATIVE) 05/11/19 16:03 Urine Bilirubin NEGATIVE (NEGATIVE) 05/20/19 13:55 Urine Urobilinogen NEGATIVE mg/dL (<2.0) 05/20/19 13:55 Ur Leukocyte Esterase NEGATIVE (NEGATIVE) 05/20/19 13:55 Leukocyte Esterase Rfl NEGATIVE (NEGATIVE) 05/11/19 16:03 Urine WBC (Auto) 0 /HPF 05/20/19 13:55 Urine RBC (Auto) 0 /HPF 05/20/19 13:55 Urine Bacteria (Auto) TRACE /HPF 05/20/19 13:55 Squamous Epi Cells Auto 3 /HPF 05/20/19 13:55 Urine Mucus (Auto) RARE /LPF 05/20/19 13:55 Urine Ascorbic Acid NEGATIVE (NEGATIVE) 05/20/19 13:55 Blood Type O NEGATIVE 05/18/19 11:25 Blood Type Confirm O NEGATIVE 05/18/19 11:25 Antibody Screen NEGATIVE 05/18/19 11:25 Crossmatch See Detail 05/18/19 11:25 Impressions: Acute Abdomen Series 05/11/19 13:26 IMPRESSION: NO RADIOGRAPHIC EVIDENCE FOR ACUTE ABDOMINAL DISEASE. Abdomen/Pelvis CT 05/11/19 15:05 IMPRESSION: There appears to be diverticulitis. There is some extraluminal free air. There are 2 sizable fluid collections in the lower abdomen/pelvis as described. These may represent abscesses. Other findings as described. Percutaneous Drainage 05/12/19 00:00 IMPRESSION: CT fluoroscopy guided 10 Icelandic drain placement of the deep pelvic collection as detailed above. Approximately 100 cc of turbid foul-smelling fluid was drained at the time of the procedure. A sample was sent to the lab for analysis. Recommend flushing catheter with 10 cc normal saline 3 times daily. Abdomen/Pelvis CT 05/14/19 07:00 IMPRESSION: Interval decrease in pelvic fluid collection status post percutaneous drain placement.
[2019-05-24 13:33] VITALS: BP 169/81
[2019-05-24] MEDS ORDERED: INFLUENZA QUAD (6MOS+) 2019-20 VAC 0.5 ML SYR IM ONE (13:58)
== END 2019-05-24 14:06 | DRG 330 ==
LOC: ER 12:51 → EH 19:51 → 2N 23:46 → 4N 05-14 19:44
PROVIDERS: ADMIT Surgery; ATTEND Surgery
PROC: 30233K1 Transfusion of Nonautologous Frozen Plasma into Peripheral Vein, Percutaneous Approach (ICD-10-PCS; 2019-05-12)
PROC: 0W9J3ZX Drainage of Pelvic Cavity, Percutaneous Approach, Diagnostic (ICD-10-PCS; 2019-05-12)
PROC: 30233N1 Transfusion of Nonautologous Red Blood Cells into Peripheral Vein, Percutaneous Approach (ICD-10-PCS; 2019-05-13)
PROC: 0DBN0ZZ Excision of Sigmoid Colon, Open Approach (ICD-10-PCS; 2019-05-14)
PROC: 0JNC0ZZ Release Pelvic Region Subcutaneous Tissue and Fascia, Open Approach (ICD-10-PCS; 2019-05-14)
PROC: 0UT00ZZ Resection of Right Ovary, Open Approach (ICD-10-PCS; 2019-05-14)
PROC: 0D1M0Z4 Bypass Descending Colon to Cutaneous, Open Approach (ICD-10-PCS; 2019-05-14)
PROC: 0DTJ0ZZ Resection of Appendix, Open Approach (ICD-10-PCS; 2019-05-14)
PROC: 0DBB0ZZ Excision of Ileum, Open Approach (ICD-10-PCS; principal; 2019-05-14 13:30)
PROC: 30233N1 Transfusion of Nonautologous Red Blood Cells into Peripheral Vein, Percutaneous Approach (ICD-10-PCS; 2019-05-18)
DX: K57.20 Diverticulitis of large intestine with perforation and abscess without bleeding (principal); Z68.43 Body mass index [BMI] 50.0-59.9, adult; K37 Unspecified appendicitis; R33.9 Retention of urine, unspecified; E03.9 Hypothyroidism, unspecified; F32.9 Major depressive disorder, single episode, unspecified; E66.01 Morbid (severe) obesity due to excess calories; B95.4 Other streptococcus as the cause of diseases classified elsewhere
CPT/HCPCS: 36415; 36430; 74018; 74022; 74176; 74177; 75989; 80048; 80053; 81001; 83690; 840; 85025; 85610; 85730; 86850; 86900; 86901; 86920; 87070; 87075; 87077; 87186; 87205; 88307; 93005; 93010; 93971; 94799; 96361; 96374; 96375; 99285; C1729; C1894; J0131; J0330; J1100; J1650; J1885; J1956; J2060; J2250; J2270; J2405; J2550; J2704; J3010; J3490; J7030; J7040; J7120; P9016; P9017; S0028

== ENCOUNTER 2019-08-01 08:32 | Day surgery (SDC) | payer BC ==
[2019-08-01] MEDS ORDERED: ONDANSETRON HCL INJ/PF 4 MG/2 ML SDV ONE (09:11)
[2019-08-01] MEDS ORDERED: DIPHENHYDRAMINE HCL 50 MG/ML VIAL ONE (09:11)
[2019-08-01] MEDS ORDERED: NALOXONE HCL INJ/PF 0.4 MG/1 ML SDV ONE (09:12)
[2019-08-01] MEDS ORDERED: FLUMAZENIL INJ 0.5 MG/5 ML VIAL ONE (09:12)
[2019-08-01] MEDS ORDERED: GLUCAGON,HUMAN RECOMB 1 MG INJ ONE (09:12)
[2019-08-01] MEDS ORDERED: MIDAZOLAM 2 MG/2 ML INJ ONE (09:12)
[2019-08-01] MEDS ORDERED: EPINEPHRINE INJ 1 MG/10 ML DISP.SYRIN ONE (09:12)
[2019-08-01] MEDS: FENTANYL CITRATE INJ/PF 100 MCG/2 ML AMPUL ONE ×4 (10:20→11:02)
--- NOTE | 2019-08-01 11:43 | Operative Report ---
Nonrecallable Operative Report DATE OF SURGERY: 08/01/19 PREOPERATIVE DIAGNOSIS: Status post perforated diverticulitis POSTOPERATIVE DIAGNOSIS: This post perforated diverticulitis ascending colon polyp OPERATION: Colonoscopy with ascending colon polypectomy SURGEON: BEE ALBARRAN ANESTHESIA: Moderate Sedation TISSUE REMOVED OR ALTERED: Ascending colon polyp removed however not recovered COMPLICATIONS: None ESTIMATED BLOOD LOSS: 2 cc INTRAOPERATIVE FINDINGS: Diverticulosis minimal approximately 20 cm from the stoma ending there. A 1 cm diameter smooth with polyp just proximal to the cecum at 70 cm excised but not recovered and tattooed with Sofia ink. PROCEDURE: Patient was brought to the endoscopy suite awake alert stable condition patient had a previous stoma in the left lower quadrant and therefore she remained in a supine position on the [facility]. After appropriate timeout site verification the procedure commenced. Patient was given IV sedation using fentanyl and Versed. The Olympus colonoscope was passed in through the stoma in the left lower quadrant and easily manipulated past the fascia into the descending colon we identified the splenic flexure traversed the transverse colon hepatic flexure and then to the ileocecal valve. As we slowly withdrew the scope we noted the the cecum appeared to be normal however there was a approximately 1 cm diameter polyp just proximal to the entrance of the cecum and it was behind a large fold after much manipulation of the scope and using the biopsy forceps as well as a snare we were able to excise the polyp but it was not recovered. Therefore I elected to Sofia ink the sidewall of the area of the polyp for possible excision at the time of colostomy drop back. The scope continued to be withdrawn the hepatic flexure was visualized it appeared to be normal with no evidence of polyps or diverticulosis mucosa appeared to be normal transverse colon similarly had normal mucosa splenic flexure was visualized as well as the descending colon again noting scattered diverticulosis approximately 20 cm from the stoma to the stoma. Impression findings Diverticulosis from the stoma to approximately 20 cm. The descending colon splenic flexure transverse colon and ascending colon had no evidence of diverticulosis. The polyp and the ascending colon just proximal to the cecum was excised but not recovered. The area the polyp was tattooed with Sofia ink for later identification.
--- NOTE | 2019-08-01 11:45 | Discharge Summary ---
Discharge Summary (SDC) - Discharge Final Diagnosis: History of perforated diverticulosis with colostomy. Date of Surgery: 08/01/19 Discharge Date: 08/01/19 Condition: Good Referrals: LENCHO HENDERSON DO [Primary Care Provider] - Discharge Diet: As Tolerated Discharge Activity: Activity As Tolerated Report the Following to Your Physician Immediately: Increase in Pain - Patient needs a follow-up with me in 2 to 3 weeks, Fever over 101 Degrees
[2019-08-01 12:27] VITALS: BP 134/68
== END 2019-08-01 12:28 | disposition home or self-care (01) ==
LOC: END 08:32
PROVIDERS: ATTEND Surgery
DX: Z43.9 Encounter for attention to unspecified artificial opening (principal); D12.2 Benign neoplasm of ascending colon; Z90.49 Acquired absence of other specified parts of digestive tract; Z87.19 Personal history of other diseases of the digestive system; Z09 Encounter for follow-up examination after completed treatment for conditions other than malignant neoplasm; E07.9 Disorder of thyroid, unspecified; Z79.899 Other long term (current) drug therapy; Z87.891 Personal history of nicotine dependence
CPT/HCPCS: 45380; 45385; 45381; J2250; J3010; J0171; J1200; J1610; J2310; J2405; J3490

== ENCOUNTER → 2019-09-11 | Outpatient (CLI) | payer BC ==
[~2019-09-11] MED LIST: CEFAZOLIN 1 GM/D5W RTU 1 GM/50 ML RTUPB IV PRN; LACTATED RINGERS 1000 ML IV PRN; LIDOCAINE 0.5% INJ-PF (5 MG/ML) 50 ML SDV SUBCUT PRN; METRONIDAZOLE 500 MG/NS RTU 500 MG/100 ML RTUPB IV PRN
[2019-09-11 09:03] LABS: ABSOLUTE EOSINOPHILS # (AUTO) 0.3 10^3/uL (0.0-0.6); ABSOLUTE LYMPHOCYTES (AUTO) 1.9 10^3/uL (0.5-4.7); ABSOLUTE MONOCYTES (AUTO) 0.3 10^3/uL (0.1-1.4); ABSOLUTE NEUT (AUTO) 3.5 10^3/uL (1.7-8.2); BASOPHILS % (AUTO) 0.8 % (0-2); EOSINOPHILS % (AUTO) 4.3 % (0-6); HEMATOCRIT 36.7 % (36.0-47.0); HEMOGLOBIN 12.4 g/dL (12.0-15.5); MEAN CORPUSCULAR HEMOGLOBIN 31.7 pg (27.0-33.4); MEAN CORPUSCULAR HGB CONC 33.9 g/dL (32.0-36.0); MEAN CORPUSCULAR VOLUME 94 fl (80-97); MONOCYTES % (AUTO) 5.1 % (3-13); PLATELET COUNT 212 10^3/uL (150-450); RED BLOOD COUNT 3.93 10^6/uL (3.72-5.28); SEGMENTED NEUTROPHILS % (AUTO) 58.8 % (42-78); TOTAL CELLS COUNTED % (AUTO) 100 %
[2019-09-11 09:19] LABS: ANION GAP 5 (5-19); BLOOD UREA NITROGEN 22 mg/dL (7-20); CALCIUM 9.3 mg/dL (8.4-10.2); CARBON DIOXIDE 27 mmol/L (22-30); CHLORIDE 108 mmol/L (98-107); GLUCOSE 107 mg/dL (75-110); POTASSIUM 4.4 mmol/L (3.6-5.0)
--- NOTE | 2019-09-11 14:11 | EKG REPORT ---
SEVERITY:- BORDERLINE ECG - SINUS RHYTHM BORDERLINE T WAVE ABNORMALITIES : Confirmed by: Alyssa Schmidt MD 11-Sep-2019 14:10:55
== END ==
LOC: OD 08:27 → EDSTATUS 09-13 07:30
PROVIDERS: ATTEND Surgery
DX: Z01.818 Encounter for other preprocedural examination (principal); Z43.3 Encounter for attention to colostomy; Z87.19 Personal history of other diseases of the digestive system; E07.9 Disorder of thyroid, unspecified
CPT/HCPCS: 36415; 80048; 85025; 93005; 93010

== ENCOUNTER 2019-10-31 07:30 | Inpatient (IN) | payer BC ==
[2019-11-03 09:21] LABS: ABSOLUTE EOSINOPHILS # (AUTO) 0.2 10^3/uL (0.0-0.6); ABSOLUTE LYMPHOCYTES (AUTO) 1.9 10^3/uL (0.5-4.7); ABSOLUTE MONOCYTES (AUTO) 0.3 10^3/uL (0.1-1.4); ABSOLUTE NEUT (AUTO) 3.4 10^3/uL (1.7-8.2); BASOPHILS % (AUTO) 0.7 % (0-2); EOSINOPHILS % (AUTO) 2.6 % (0-6); HEMATOCRIT 35.5 % (36.0-47.0); HEMOGLOBIN 11.9 g/dL (12.0-15.5); LYMPHOCYTES % (AUTO) 32.7 % (13-45); MEAN CORPUSCULAR HEMOGLOBIN 31.7 pg (27.0-33.4); MEAN CORPUSCULAR HGB CONC 33.5 g/dL (32.0-36.0); MEAN CORPUSCULAR VOLUME 95 fl (80-97); MONOCYTES % (AUTO) 5.7 % (3-13); PLATELET COUNT 231 10^3/uL (150-450); RED BLOOD COUNT 3.75 10^6/uL (3.72-5.28); RED CELL DISTRIBUTION WIDTH 15.3 % (11.5-14.0); SEGMENTED NEUTROPHILS % (AUTO) 58.3 % (42-78); TOTAL CELLS COUNTED % (AUTO) 100 %; WHITE BLOOD COUNT 5.9 10^3/uL (4.0-10.5)
[2019-11-03 09:50] LABS: ANION GAP 7 (5-19); BLOOD UREA NITROGEN 26 mg/dL (7-20); CALCIUM 8.9 mg/dL (8.4-10.2); CARBON DIOXIDE 23 mmol/L (22-30); CHLORIDE 107 mmol/L (98-107); GLUCOSE 109 mg/dL (75-110); POTASSIUM 4.7 mmol/L (3.6-5.0)
[2019-11-07] MEDS ORDERED: METRONIDAZOLE 500 MG/NS RTU 500 MG/100 ML RTUPB IV ONE (04:58)
[2019-11-07] MEDS ORDERED: DEXAMETHASONE SOD PHOSPHATE INJ 4 MG/1 ML VIAL ONE (05:00)
[2019-11-07] MEDS ORDERED: LACTATED RINGERS 1000 ML IV PRN (05:00)
[2019-11-07] MEDS ORDERED: LIDOCAINE 0.5% INJ-PF (5 MG/ML) 50 ML SDV SUBCUT PRN (05:00)
[2019-11-07] MEDS ORDERED: ROCURONIUM BROMIDE INJ 50 MG/5 ML VIAL IV ONE (05:00)
[2019-11-07] MEDS ORDERED: GLYCOPYRROLATE 1 MG/5 ML VIAL ONE (05:00)
[2019-11-07] MEDS ORDERED: SUCCINYLCHOLINE CHLORIDE INJ 200 MG/10 ML VIAL ONE (05:00)
[2019-11-07] MEDS ORDERED: CEFAZOLIN SODIUM 2 GM in DEXTROSE 5%-WATER 100 ML IV PRN (05:00)
[2019-11-07] MEDS ORDERED: METRONIDAZOLE 500 MG/NS RTU 500 MG/100 ML RTUPB IV PRN (05:00)
[2019-11-07] MEDS ORDERED: PHENYLEPHRINE HCL INJ/PF 10 MG/1 ML SDV ONE (05:00)
[2019-11-07] MEDS ORDERED: NEOSTIGMINE METHYLSULFATE 10 MG/10 ML VIAL ONE (05:00)
[2019-11-07] MEDS ORDERED: KETOROLAC TROMETHAMINE 60 MG/2 ML SDV ONE (07:00)
[2019-11-07] MEDS ORDERED: HYDROMORPHONE HCL INJ/PF 2 MG/ML AMPULE ONE (07:00)
[2019-11-07] MEDS ORDERED: MIDAZOLAM 2 MG/2 ML INJ ONE (07:00)
[2019-11-07] MEDS ORDERED: FENTANYL CITRATE INJ/PF 100 MCG/2 ML AMPUL ONE (07:00)
[2019-11-07] MEDS ORDERED: PROMETHAZINE HCL INJ 25 MG/1 ML VIAL ONE (07:00)
[2019-11-07] MEDS ORDERED: PROPOFOL INJ 200 MG/20 ML VIAL IV ONE (07:00)
[2019-11-07] MEDS ORDERED: LIDOCAINE 2% INJ-PF (20 MG/ML) 10 ML AMPUL ONE (07:02)
[2019-11-07] MEDS ORDERED: BUPIVACAINE HCL 0.25 % INJ/PF (2.5 MG/1 ML) 30 ML VIAL ONE (07:22)
[2019-11-07] MEDS ORDERED: GLUCAGON,HUMAN RECOMB 1 MG INJ ONE (07:23)
[2019-11-07] MEDS ORDERED: PROMETHAZINE HCL INJ 25 MG/1 ML VIAL IV PRN (08:01)
[2019-11-07] MEDS ORDERED: MORPHINE SULFATE 10 MG/ML INJ IV PRN (08:01)
[2019-11-07] MEDS ORDERED: DIPHENHYDRAMINE HCL 50 MG/ML VIAL IV PRN (08:01)
[2019-11-07] MEDS ORDERED: FENTANYL CITRATE INJ/PF 100 MCG/2 ML AMPUL IV PRN ×3 (08:01)
[2019-11-07] MEDS ORDERED: MEPERIDINE HCL/PF INJ 25 MG/1 ML DISP.SYRIN IV PRN (08:01)
[2019-11-07] MEDS ORDERED: METHYLENE BLUE 50 MG/10 ML AMPULE ONE (09:00)
[2019-11-07] MEDS ORDERED: LABETALOL HCL INJ 20 MG/4 ML DISP.SYRIN IV ONE (09:30)
--- NOTE | 2019-11-07 11:43 | Operative Report ---
Nonrecallable Operative Report DATE OF SURGERY: 11/07/19 PREOPERATIVE DIAGNOSIS: colostomy and cecal polyp POSTOPERATIVE DIAGNOSIS: colostomy and cecal polyp OPERATION: Colocolostomy with cecectomy SURGEON: BEE ALBARRAN 1ST DISHWASHING MACHINE REPAIRER: MORGAN NICE TISSUE REMOVED OR ALTERED: Cecum COMPLICATIONS: None ESTIMATED BLOOD LOSS: 200 cc INTRAOPERATIVE FINDINGS: See note PROCEDURE: Patient was brought to the operating room awake alert stable condition placed on the upper table supine position just under general anesthesia intubated she was then placed in a low lithotomy position. After appropriate site verification the abdomen was prepped and draped in usual sterile fashion. The previous colostomy was oversewn with a running 2-0 silk suture. A midline incision was utilized from above the umbilicus to the pubic symphysis dissection was carried down through subcutaneous tissue with Bovie cautery midline fascia was entered. There were multiple loose adhesions that required sharp dissection to free up the small bowel and be able to eviscerated the small bowel to gain access to the colon and pelvis. After freeing up the adhesions we freed up the previous colostomy from the abdominal wall and once this was accomplished we made a curvilinear incision circumferentially around the stoma with the Bovie cautery and freed and released the stoma from the abdominal wall. Once this was done we picked a point that the on the descending colon approximately 15 cm proximal to the end of the stoma will be came across the distal the descending colon with the pursestring pursestring maker. We amputated off the stoma. We then turned attention to the pelvis the significant adhesions of the rectal stump within the pelvis however I could identify that with the previously placed Prolene suture once we were able to manipulate the rectal stump and freed up from the posterior sacrum we examined both right and left ureters and noted that they were intact without evidence of injury. We able then to easily pass the rectal dilator from the rectum into the rectal stump. There was some old stool that needed to be evacuated and irrigated. Once this was done we turned attention to the right colon we mobilized the right colon along the white line of Toldt with Bovie cautery to free up the cecum and terminal ileum we could identify the previous placed tattoo in the cecum. I picked a point on the ascending colon about5 cm above the cecum and came across it with 1 firing the DAMON stapler with a blue load. We came across the terminal ileum 2 cm proximal to cecum with 1 firing of the DAMON stapler with a blue load. Once this was accomplished we then performed an ileal colostomy with in 2 layers sewn the outer layer 2-0 silk in a running inner layer 3-0 Vicryl. We closed the mesenteric defect with interrupted 2-0 silk placed in a [id number] fashion. We then turned attention to the pelvis again we used a 29 mm EEA stapler passed into the rectum connected to the anvil that was previously placed in the descending colon closed it fired creating a colocolic proctostomy. We checked the integrity by insufflating air under pressure with the pelvis filled with water and there were no air bubbles. We then copiously irrigated the abdominal cavity suctioned dry we left a Benjamin-Shields drain in the pelvis and brought out through stab wound in the right lower quadrant we closed the fascial defect of the stoma from behind with interrupted placed #2 Vicryl sutures. We closed the anterior sheath also with #2 Vicryl sutures we then closed the midline fascia with a running double looped 0 PDS suture interspersed with #2 Vicryl sutures for reinforcement. We copiously irrigated the abdominal wound and closed the skin with standard skin clips. Estimated blood loss for the procedure was 200 cc sponge and needle counts were correct x2 the patient was awakened in the operating extubated transferred recovery in stable condition. BREE Bradford was present for the entire operation for help with wound retraction wound closure.
[2019-11-07] MEDS ORDERED: NALOXONE HCL INJ/PF 0.4 MG/1 ML SDV ONE (14:19)
[2019-11-07] MEDS: HEPARIN SOD (PORCINE) 5,000 UNIT/ML 1 ML VIAL SUBCUT SCH ×2 (15:39→21:04)
[2019-11-07] MEDS: METRONIDAZOLE 500 MG/NS RTU 500 MG/100 ML RTUPB IV SCH ×2 (15:40→21:04)
[2019-11-07] MEDS: POTASSI CL 20 MEQ/1/2NS 1L 20 MEQ/1,000 ML RTUINJ IV PRN (15:46)
[2019-11-07] MEDS: CEFAZOLIN 1 GM/D5W RTU 1 GM/50 ML RTUPB IV SCH (17:58)
[2019-11-07] MEDS: ONDANSETRON HCL INJ/PF 4 MG/2 ML SDV IV PRN (18:49)
[2019-11-07] MEDS: MORPHINE SULFATE 10 MG/ML INJ IV PRN (19:02)
[2019-11-07] MEDS: FAMOTIDINE INJ/PF 20 MG/2 ML SDV IV SCH (21:04)
[2019-11-08] MEDS: POTASSI CL 20 MEQ/1/2NS 1L 20 MEQ/1,000 ML RTUINJ IV PRN (01:55)
[2019-11-08] MEDS: CEFAZOLIN 1 GM/D5W RTU 1 GM/50 ML RTUPB IV SCH ×3 (01:55→17:08)
[2019-11-08] MEDS: MORPHINE SULFATE 10 MG/ML INJ IV PRN ×3 (01:55→17:58)
[2019-11-08] MEDS: METRONIDAZOLE 500 MG/NS RTU 500 MG/100 ML RTUPB IV SCH ×3 (05:01→21:15)
[2019-11-08] MEDS: HEPARIN SOD (PORCINE) 5,000 UNIT/ML 1 ML VIAL SUBCUT SCH ×3 (05:01→21:15)
[2019-11-08 05:50] LABS: ABSOLUTE LYMPHOCYTES (AUTO) 1.6 10^3/uL (0.5-4.7); ABSOLUTE NEUT (AUTO) 15.4 10^3/uL (1.7-8.2); BASOPHILS % (AUTO) 0.1 % (0-2); HEMATOCRIT 36.3 % (36.0-47.0); HEMOGLOBIN 12.1 g/dL (12.0-15.5); LYMPHOCYTES % (AUTO) 8.8 % (13-45); MEAN CORPUSCULAR HEMOGLOBIN 31.8 pg (27.0-33.4); MEAN CORPUSCULAR HGB CONC 33.3 g/dL (32.0-36.0); MEAN CORPUSCULAR VOLUME 95 fl (80-97); MONOCYTES % (AUTO) 5.4 % (3-13); PLATELET COUNT 264 10^3/uL (150-450); RED BLOOD COUNT 3.81 10^6/uL (3.72-5.28); RED CELL DISTRIBUTION WIDTH 14.7 % (11.5-14.0); SEGMENTED NEUTROPHILS % (AUTO) 85.7 % (42-78); TOTAL CELLS COUNTED % (AUTO) 100 %
[2019-11-08 06:18] LABS: ANION GAP 12 (5-19); BLOOD UREA NITROGEN 37 mg/dL (7-20); CALCIUM 8.7 mg/dL (8.4-10.2); CARBON DIOXIDE 20 mmol/L (22-30); CHLORIDE 104 mmol/L (98-107); GLUCOSE 155 mg/dL (75-110); POTASSIUM 5.2 mmol/L (3.6-5.0)
--- NOTE | 2019-11-08 08:48 | PDOC PROGRESS REPORT ---
Subjective Progress Note for:: 11/08/19 Subjective:: sleepy Reason For Visit: Z43.3 ENCOUNTER FOR ATTENTION TO COLOSTOMY Physical Exam Vital Signs: Temp Pulse Resp BP Pulse Ox 98.8 F 100 15 139/68 H 93 11/08/19 07:21 11/08/19 07:21 11/08/19 07:21 11/08/19 07:21 11/08/19 07:21 Intake & Output 11/07/19 11/08/19 11/09/19 06:59 06:59 06:59 Intake Total 0 3800 Output Total 710 Balance 0 3090 Weight 113 kg General appearance: PRESENT: morbidly obese Head exam: PRESENT: normocephalic Eye exam: PRESENT: EOMI Ear exam: PRESENT: normal external ear exam Mouth exam: PRESENT: moist Teeth exam: PRESENT: poor dentation Neck exam: PRESENT: full ROM Respiratory exam: PRESENT: clear to auscultation michael Cardiovascular exam: PRESENT: RRR Pulses: PRESENT: normal radial pulses, normal femoral pulses Breast: PRESENT: Normal GI/Abdominal exam: PRESENT: soft Rectal exam: PRESENT: deferred Extremities exam: PRESENT: full ROM Musculoskeletal exam: PRESENT: full ROM Neurological exam: PRESENT: alert, awake, oriented to person, oriented to place Skin exam: PRESENT: dry Results Laboratory Results: 11/08/19 04:50 11/08/19 04:50 11/08/19 11/08/19 04:50 04:50 WBC 18.0 H RBC 3.81 Hgb 12.1 Hct 36.3 MCV 95 MCH 31.8 MCHC 33.3 RDW 14.7 H Plt Count 264 Seg Neutrophils % 85.7 H Sodium 136.0 L Potassium 5.2 H Chloride 104 Carbon Dioxide 20 L Anion Gap 12 BUN 37 H Creatinine 1.34 H Est GFR ( Amer) 49 L Glucose 155 H Calcium 8.7 Assessment & Plan - Plan Summary Plan Summary: s/p colocolostomy with cecal resection pod#1 pt sleepy c/o incisional pain difficult to mobilize diue to obesity labs reviewed k+=5.2 creat 1.6 wb c 18k plan cont iv abx mobilize out of bed cont only sips of clears. incentive spirometry.
[2019-11-08] MEDS: FAMOTIDINE INJ/PF 20 MG/2 ML SDV IV SCH ×2 (09:33→21:15)
--- NOTE | 2019-11-08 10:55 | CDI QUERY ---
CDI Query CDI Review: Dear Provider: To better reflect your patients severity of illness, morbidity, and resource utilization Please specify and document in the Progress Notes and Discharge Summary if you are monitoring / treating / evaluating any of the following conditions: Query Clinical indicators Morbid Obesity / BMI 45.5 Obesity / BMI 45.5 Other Undetermined Noted in Progress Notes: General appearance: PRESENT: morbidly obese difficult to mobilize due to obesity Ht 5 ft 2in Weight 113 kg (248.6 lbs) (Calculated BMI 45.5) The terms probable, suspected, likely, possible or still to be ruled out may be used if you are unable to determine the exact nature of a condition. Thank you for your consideration, Clinical Documentation Physician Advisors SHAMA Sloan RN, BSN RN [email or web address] Office [phone] Office [phone]
[2019-11-08] MEDS: 1/2 NORMAL SALINE 1,000 ML IV PRN (14:08)
[2019-11-08] MEDS ORDERED: KETOROLAC TROMETHAMINE INJ/PF 30 MG/1 ML SDV IV SCH (20:00)
[2019-11-08] MEDS: KETOROLAC TROMETHAMINE INJ/PF 30 MG/1 ML SDV IV SCH (20:10)
[2019-11-09] MEDS: 1/2 NORMAL SALINE 1,000 ML IV PRN ×3 (00:10→23:25)
[2019-11-09] MEDS: KETOROLAC TROMETHAMINE INJ/PF 30 MG/1 ML SDV IV SCH ×5 (00:10→23:24)
[2019-11-09] MEDS: CEFAZOLIN 1 GM/D5W RTU 1 GM/50 ML RTUPB IV SCH ×3 (01:40→18:07)
[2019-11-09] MEDS: METRONIDAZOLE 500 MG/NS RTU 500 MG/100 ML RTUPB IV SCH ×3 (05:03→21:45)
[2019-11-09] MEDS: HEPARIN SOD (PORCINE) 5,000 UNIT/ML 1 ML VIAL SUBCUT SCH ×3 (05:04→21:45)
[2019-11-09] MEDS: ONDANSETRON HCL INJ/PF 4 MG/2 ML SDV IV PRN ×3 (05:16→18:13)
[2019-11-09 06:50] LABS: ABSOLUTE LYMPHOCYTES (AUTO) 1.2 10^3/uL (0.5-4.7); ABSOLUTE MONOCYTES (AUTO) 0.4 10^3/uL (0.1-1.4); ABSOLUTE NEUT (AUTO) 9.7 10^3/uL (1.7-8.2); BASOPHILS % (AUTO) 0.3 % (0-2); EOSINOPHILS % (AUTO) 0.1 % (0-6); HEMATOCRIT 26.5 % (36.0-47.0); LYMPHOCYTES % (AUTO) 10.4 % (13-45); MEAN CORPUSCULAR HEMOGLOBIN 32.3 pg (27.0-33.4); MEAN CORPUSCULAR HGB CONC 33.9 g/dL (32.0-36.0); MEAN CORPUSCULAR VOLUME 95 fl (80-97); MONOCYTES % (AUTO) 3.5 % (3-13); PLATELET COUNT 183 10^3/uL (150-450); RED BLOOD COUNT 2.78 10^6/uL (3.72-5.28); RED CELL DISTRIBUTION WIDTH 14.9 % (11.5-14.0); SEGMENTED NEUTROPHILS % (AUTO) 85.7 % (42-78); TOTAL CELLS COUNTED % (AUTO) 100 %; WHITE BLOOD COUNT 11.3 10^3/uL (4.0-10.5)
[2019-11-09 07:04] LABS: ANION GAP 8 (5-19); BLOOD UREA NITROGEN 42 mg/dL (7-20); CALCIUM 7.9 mg/dL (8.4-10.2); CARBON DIOXIDE 20 mmol/L (22-30); CHLORIDE 105 mmol/L (98-107); GLUCOSE 124 mg/dL (75-110); POTASSIUM 4.4 mmol/L (3.6-5.0)
--- NOTE | 2019-11-09 07:33 | PDOC PROGRESS REPORT ---
Subjective Progress Note for:: 11/09/19 Subjective:: feels better Reason For Visit: Z43.3 ENCOUNTER FOR ATTENTION TO COLOSTOMY Physical Exam Vital Signs: Temp Pulse Resp BP Pulse Ox 98.2 F 97 18 156/82 H 96 11/08/19 23:25 11/08/19 23:25 11/08/19 23:25 11/08/19 23:25 11/08/19 23:25 Intake & Output 11/08/19 11/09/19 11/10/19 06:59 06:59 06:59 Intake Total 3800 2620 Output Total 710 910 Balance 3090 1710 Weight 113 kg 115.1 kg General appearance: PRESENT: no acute distress Head exam: PRESENT: normocephalic Eye exam: PRESENT: EOMI Ear exam: PRESENT: normal external ear exam Mouth exam: PRESENT: moist Neck exam: PRESENT: full ROM Respiratory exam: PRESENT: clear to auscultation michael Cardiovascular exam: PRESENT: RRR Pulses: PRESENT: normal radial pulses, normal femoral pulses Breast: PRESENT: Normal GI/Abdominal exam: PRESENT: soft - wound dry Rectal exam: PRESENT: deferred Extremities exam: PRESENT: full ROM Musculoskeletal exam: PRESENT: full ROM Neurological exam: PRESENT: alert, awake, oriented to person, oriented to place Psychiatric exam: PRESENT: appropriate affect Skin exam: PRESENT: dry Results Laboratory Results: 11/09/19 06:13 11/09/19 06:13 11/09/19 11/09/19 06:13 06:13 WBC 11.3 H RBC 2.78 L Hgb 9.0 L D Hct 26.5 L MCV 95 MCH 32.3 MCHC 33.9 RDW 14.9 H Plt Count 183 Seg Neutrophils % 85.7 H Sodium 133.1 L Potassium 4.4 Chloride 105 Carbon Dioxide 20 L Anion Gap 8 BUN 42 H Creatinine 1.39 H Est GFR ( Amer) 47 L Glucose 124 H Calcium 7.9 L Assessment & Plan - Plan Summary Plan Summary: impression s/p coloproctostomy and cecectomy pod 2 pt feels better with less pain after adding toradol still iwth indwelling shrestha no return of bowel function as yet briana sips of clears creat 1.39 k=4.4 wbc trending down. hct stable. difficult to mobilize due to her morbid obesity, however other than that, her morbid obesty iwth a bmi of 45 is not being addressed during this hospitalization.
[2019-11-09] MEDS: FAMOTIDINE INJ/PF 20 MG/2 ML SDV IV SCH ×2 (10:01→21:45)
[2019-11-09] MEDS: DIPHENHYDRAMINE HCL 50 MG/ML VIAL IV PRN (21:45)
[2019-11-10] MEDS: MORPHINE SULFATE 10 MG/ML INJ IV PRN ×4 (00:33→23:53)
[2019-11-10] MEDS: CEFAZOLIN 1 GM/D5W RTU 1 GM/50 ML RTUPB IV SCH ×3 (02:08→17:19)
[2019-11-10 05:12] LABS: ABSOLUTE BASOPHILS # (AUTO) 0.1 10^3/uL (0.0-0.2); ABSOLUTE EOSINOPHILS # (AUTO) 0.1 10^3/uL (0.0-0.6); ABSOLUTE LYMPHOCYTES (AUTO) 1.2 10^3/uL (0.5-4.7); ABSOLUTE MONOCYTES (AUTO) 0.3 10^3/uL (0.1-1.4); ABSOLUTE NEUT (AUTO) 7.2 10^3/uL (1.7-8.2); BASOPHILS % (AUTO) 0.8 % (0-2); EOSINOPHILS % (AUTO) 0.7 % (0-6); HEMATOCRIT 22.6 % (36.0-47.0); LYMPHOCYTES % (AUTO) 13.8 % (13-45); MEAN CORPUSCULAR HEMOGLOBIN 32.5 pg (27.0-33.4); MEAN CORPUSCULAR VOLUME 96 fl (80-97); MONOCYTES % (AUTO) 3.5 % (3-13); PLATELET COUNT 181 10^3/uL (150-450); RED BLOOD COUNT 2.37 10^6/uL (3.72-5.28); RED CELL DISTRIBUTION WIDTH 14.9 % (11.5-14.0); SEGMENTED NEUTROPHILS % (AUTO) 81.2 % (42-78); TOTAL CELLS COUNTED % (AUTO) 100 %; WHITE BLOOD COUNT 8.8 10^3/uL (4.0-10.5)
[2019-11-10 05:14] LABS: HEMOGLOBIN 7.7 g/dL (12.0-15.5)
[2019-11-10 05:21] LABS: BLOOD UREA NITROGEN 35 mg/dL (7-20); CALCIUM 7.9 mg/dL (8.4-10.2); CHLORIDE 109 mmol/L (98-107); GLUCOSE 106 mg/dL (75-110); POTASSIUM 4.1 mmol/L (3.6-5.0)
[2019-11-10 05:27] LABS: CARBON DIOXIDE 21 mmol/L (22-30)
[2019-11-10 05:33] LABS: ANION GAP 6 (5-19)
[2019-11-10] MEDS: METRONIDAZOLE 500 MG/NS RTU 500 MG/100 ML RTUPB IV SCH ×3 (05:42→21:55)
[2019-11-10] MEDS: HEPARIN SOD (PORCINE) 5,000 UNIT/ML 1 ML VIAL SUBCUT SCH ×3 (05:47→21:55)
--- NOTE | 2019-11-10 07:38 | PDOC PROGRESS REPORT ---
Subjective Progress Note for:: 11/10/19 Subjective:: feels ok Reason For Visit: Z43.3 ENCOUNTER FOR ATTENTION TO COLOSTOMY Physical Exam Vital Signs: Temp Pulse Resp BP Pulse Ox 97.7 F 93 18 152/73 H 95 11/10/19 00:09 11/10/19 00:09 11/10/19 00:09 11/10/19 00:09 11/10/19 00:09 Intake & Output 11/09/19 11/10/19 11/11/19 06:59 06:59 06:59 Intake Total 2620 2670 Output Total 910 2009 Balance 1710 660 Weight 115.1 kg 113.5 kg General appearance: PRESENT: no acute distress Head exam: PRESENT: normocephalic Eye exam: PRESENT: EOMI Mouth exam: PRESENT: moist Teeth exam: PRESENT: edentulous Neck exam: PRESENT: full ROM Respiratory exam: PRESENT: clear to auscultation michael Cardiovascular exam: PRESENT: RRR Pulses: PRESENT: normal femoral pulses, normal dorsalis pedis pul Vascular exam: PRESENT: normal capillary refill Breast: PRESENT: Normal GI/Abdominal exam: PRESENT: soft Rectal exam: PRESENT: deferred Extremities exam: PRESENT: full ROM Musculoskeletal exam: PRESENT: full ROM Neurological exam: PRESENT: alert, awake, oriented to person, oriented to place Psychiatric exam: PRESENT: appropriate affect Skin exam: PRESENT: dry Results Laboratory Results: 11/10/19 04:37 11/10/19 04:37 11/10/19 11/10/19 04:37 04:37 WBC 8.8 RBC 2.37 L Hgb 7.7 L Hct 22.6 L MCV 96 MCH 32.5 MCHC 34.0 RDW 14.9 H Plt Count 181 Seg Neutrophils % 81.2 H Sodium 135.9 L Potassium 4.1 Chloride 109 H Carbon Dioxide 21 L Anion Gap 6 BUN 35 H Creatinine 1.30 H Est GFR ( Amer) 50 L Glucose 106 Calcium 7.9 L Assessment & Plan - Plan Summary Plan Summary: still no flatus hct sl down no flatus wound ok plan dc shrestha trend hct up out of bed.
[2019-11-10] MEDS: FAMOTIDINE INJ/PF 20 MG/2 ML SDV IV SCH ×2 (11:00→21:55)
[2019-11-10] MEDS: 1/2 NORMAL SALINE 1,000 ML IV PRN ×2 (11:09→21:54)
[2019-11-10] MEDS: ONDANSETRON HCL INJ/PF 4 MG/2 ML SDV IV PRN (11:14)
[2019-11-10] MEDS: DIPHENHYDRAMINE HCL 50 MG/ML VIAL IV PRN (21:55)
[2019-11-11] MEDS: CEFAZOLIN 1 GM/D5W RTU 1 GM/50 ML RTUPB IV SCH ×3 (02:57→18:44)
[2019-11-11] MEDS: HEPARIN SOD (PORCINE) 5,000 UNIT/ML 1 ML VIAL SUBCUT SCH ×3 (05:12→21:26)
[2019-11-11] MEDS: METRONIDAZOLE 500 MG/NS RTU 500 MG/100 ML RTUPB IV SCH ×3 (05:12→21:25)
[2019-11-11] MEDS: MORPHINE SULFATE 10 MG/ML INJ IV PRN ×4 (05:12→21:24)
[2019-11-11 06:13] LABS: ABSOLUTE EOSINOPHILS # (AUTO) 0.2 10^3/uL (0.0-0.6); ABSOLUTE LYMPHOCYTES (AUTO) 1.7 10^3/uL (0.5-4.7); ABSOLUTE MONOCYTES (AUTO) 0.5 10^3/uL (0.1-1.4); ABSOLUTE NEUT (AUTO) 5.5 10^3/uL (1.7-8.2); BASOPHILS % (AUTO) 0.5 % (0-2); EOSINOPHILS % (AUTO) 2.2 % (0-6); HEMOGLOBIN 8.4 g/dL (12.0-15.5); LYMPHOCYTES % (AUTO) 21.6 % (13-45); MEAN CORPUSCULAR HEMOGLOBIN 32.4 pg (27.0-33.4); MEAN CORPUSCULAR HGB CONC 33.5 g/dL (32.0-36.0); MEAN CORPUSCULAR VOLUME 97 fl (80-97); MONOCYTES % (AUTO) 6.1 % (3-13); PLATELET COUNT 225 10^3/uL (150-450); RED BLOOD COUNT 2.59 10^6/uL (3.72-5.28); RED CELL DISTRIBUTION WIDTH 14.8 % (11.5-14.0); SEGMENTED NEUTROPHILS % (AUTO) 69.6 % (42-78); TOTAL CELLS COUNTED % (AUTO) 100 %; WHITE BLOOD COUNT 7.8 10^3/uL (4.0-10.5)
[2019-11-11 06:26] LABS: ANION GAP 7 (5-19); BLOOD UREA NITROGEN 23 mg/dL (7-20); CARBON DIOXIDE 21 mmol/L (22-30); CHLORIDE 108 mmol/L (98-107); GLUCOSE 100 mg/dL (75-110)
--- NOTE | 2019-11-11 09:22 | PDOC PROGRESS REPORT ---
Subjective Progress Note for:: 11/11/19 Subjective:: feels better briana liquiids having bm's Reason For Visit: Z43.3 ENCOUNTER FOR ATTENTION TO COLOSTOMY Physical Exam Vital Signs: Temp Pulse Resp BP Pulse Ox 97.5 F 78 16 146/64 H 98 11/11/19 08:09 11/11/19 08:09 11/11/19 08:09 11/11/19 08:09 11/11/19 08:09 Intake & Output 11/10/19 11/11/19 11/12/19 06:59 06:59 06:59 Intake Total 267 3926 Output Total 2009 1009 Balance 660 2916 Weight 113.5 kg 113.3 kg General appearance: PRESENT: no acute distress Head exam: PRESENT: normocephalic Eye exam: PRESENT: EOMI Ear exam: PRESENT: normal external ear exam Mouth exam: PRESENT: moist Neck exam: PRESENT: full ROM Respiratory exam: PRESENT: clear to auscultation michael Cardiovascular exam: PRESENT: RRR Pulses: PRESENT: normal femoral pulses, normal dorsalis pedis pul Vascular exam: PRESENT: normal capillary refill Breast: PRESENT: Normal GI/Abdominal exam: PRESENT: soft Rectal exam: PRESENT: deferred Extremities exam: PRESENT: full ROM Musculoskeletal exam: PRESENT: full ROM Neurological exam: PRESENT: alert, awake, oriented to person, oriented to place Psychiatric exam: PRESENT: appropriate affect Skin exam: PRESENT: dry Results Laboratory Results: 11/11/19 05:31 11/11/19 05:31 11/11/19 11/11/19 05:31 05:31 WBC 7.8 RBC 2.59 L Hgb 8.4 L Hct 25.0 L MCV 97 MCH 32.4 MCHC 33.5 RDW 14.8 H Plt Count 225 Seg Neutrophils % 69.6 Sodium 136.3 L Potassium 4.0 Chloride 108 H Carbon Dioxide 21 L Anion Gap 7 BUN 23 H Creatinine 0.77 Est GFR ( Amer) > 60 Glucose 100 Calcium 8.0 L Assessment & Plan - Plan Summary Plan Summary: pt doing better passing stool will advance diet poss home in am
[2019-11-11] MEDS: FAMOTIDINE INJ/PF 20 MG/2 ML SDV IV SCH ×2 (10:07→21:25)
[2019-11-11] MEDS: ONDANSETRON HCL INJ/PF 4 MG/2 ML SDV IV PRN ×2 (10:07→16:24)
[2019-11-11] MEDS: 1/2 NORMAL SALINE 1,000 ML IV PRN (12:18)
[2019-11-11] MEDS: DIPHENHYDRAMINE HCL 50 MG/ML VIAL IV PRN (21:24)
[2019-11-12] MEDS: 1/2 NORMAL SALINE 1,000 ML IV PRN ×2 (01:13→13:08)
[2019-11-12] MEDS: CEFAZOLIN 1 GM/D5W RTU 1 GM/50 ML RTUPB IV SCH ×3 (01:14→17:13)
[2019-11-12] MEDS: METRONIDAZOLE 500 MG/NS RTU 500 MG/100 ML RTUPB IV SCH ×3 (05:09→22:33)
[2019-11-12] MEDS: HEPARIN SOD (PORCINE) 5,000 UNIT/ML 1 ML VIAL SUBCUT SCH ×3 (05:09→22:31)
[2019-11-12 06:34] LABS: HEMATOCRIT 27.1 % (36.0-47.0); HEMOGLOBIN 9.3 g/dL (12.0-15.5); MEAN CORPUSCULAR HEMOGLOBIN 33.2 pg (27.0-33.4); MEAN CORPUSCULAR HGB CONC 34.5 g/dL (32.0-36.0); MEAN CORPUSCULAR VOLUME 96 fl (80-97); PLATELET COUNT 268 10^3/uL (150-450); RED BLOOD COUNT 2.82 10^6/uL (3.72-5.28); RED CELL DISTRIBUTION WIDTH 14.8 % (11.5-14.0); WHITE BLOOD COUNT 9.2 10^3/uL (4.0-10.5)
[2019-11-12 06:53] LABS: ANION GAP 7 (5-19); BLOOD UREA NITROGEN 18 mg/dL (7-20); CALCIUM 8.7 mg/dL (8.4-10.2); CARBON DIOXIDE 21 mmol/L (22-30); CHLORIDE 109 mmol/L (98-107); GLUCOSE 112 mg/dL (75-110); POTASSIUM 4.1 mmol/L (3.6-5.0)
[2019-11-12 07:09] LABS: ABSOLUTE LYMPHOCYTES# (MANUAL) 1.7 10^3/uL (0.5-4.7); ABSOLUTE MONOCYTES # (MANUAL) 0.8 10^3/uL (0.1-1.4); ANISOCYTOSIS 1+; BAND NEUTROPHILS % (MANUAL) 5 % (3-5); BASOPHILS % (MANUAL) 0 % (0-2); EOSINOPHILS % (MANUAL) 4 % (0-6); LYMPHOCYTES % (MANUAL) 19 % (13-45); MONOCYTES % (MANUAL) 9 % (3-13); NUCLEATED RED BLOOD CELLS 1 /100 WBC (0); PLATELET COMMENT ADEQUATE; POLYCHROMASIA 1+; SEGMENTED NEUTROPHILS % (MAN) 63 % (42-78); TOTAL CELLS COUNTED 100
[2019-11-12] MEDS: MORPHINE SULFATE 10 MG/ML INJ IV PRN ×4 (07:53→22:32)
[2019-11-12] MEDS: FAMOTIDINE INJ/PF 20 MG/2 ML SDV IV SCH ×2 (09:20→22:31)
--- NOTE | 2019-11-12 10:28 | PDOC PROGRESS REPORT ---
Subjective Progress Note for:: 11/12/19 Subjective:: feels ok, wants to go home Reason For Visit: Z43.3 ENCOUNTER FOR ATTENTION TO COLOSTOMY Physical Exam Vital Signs: Temp Pulse Resp BP Pulse Ox 98.9 F 78 15 131/73 H 98 11/12/19 08:16 11/12/19 08:16 11/12/19 08:16 11/12/19 08:16 11/12/19 08:16 Intake & Output 11/11/19 11/12/19 11/13/19 06:59 06:59 06:59 Intake Total 3926 2270 100 Output Total 1010 820 Balance 2916 1450 100 Weight 113.3 kg 114.8 kg General appearance: PRESENT: no acute distress Head exam: PRESENT: normocephalic Eye exam: PRESENT: EOMI Ear exam: PRESENT: normal external ear exam Mouth exam: PRESENT: moist Teeth exam: PRESENT: poor dentation Neck exam: PRESENT: full ROM Respiratory exam: PRESENT: clear to auscultation michael Cardiovascular exam: PRESENT: RRR Vascular exam: PRESENT: normal capillary refill Breast: PRESENT: Normal GI/Abdominal exam: PRESENT: soft - wound clean still high denise output Rectal exam: PRESENT: deferred Extremities exam: PRESENT: full ROM Neurological exam: PRESENT: alert, awake, oriented to place Skin exam: PRESENT: dry Results Laboratory Results: 11/12/19 05:24 11/12/19 05:24 11/12/19 11/12/19 05:24 05:24 WBC 9.2 RBC 2.82 L Hgb 9.3 L Hct 27.1 L MCV 96 MCH 33.2 MCHC 34.5 RDW 14.8 H Plt Count 268 Seg Neutrophils % Not Reportable Sodium 136.8 L Potassium 4.1 Chloride 109 H Carbon Dioxide 21 L Anion Gap 7 BUN 18 Creatinine 0.77 Est GFR ( Amer) > 60 Glucose 112 H Calcium 8.7 Assessment & Plan - Plan Summary Plan Summary: s/p colostomy takedown doing well now iwth retukrn of bowel function creat wnl wbc wnl however still with high denise output does not smell of urine however concerning will send for creat today if neg, prob dc home in am.
[2019-11-12] MEDS: DIPHENHYDRAMINE HCL 50 MG/ML VIAL IV PRN (22:31)
[2019-11-13] MEDS: METRONIDAZOLE 500 MG/NS RTU 500 MG/100 ML RTUPB IV SCH ×2 (06:57→14:31)
[2019-11-13 06:58] LABS: ABSOLUTE BASOPHILS # (AUTO) 0.1 10^3/uL (0.0-0.2); ABSOLUTE EOSINOPHILS # (AUTO) 0.2 10^3/uL (0.0-0.6); ABSOLUTE LYMPHOCYTES (AUTO) 1.7 10^3/uL (0.5-4.7); ABSOLUTE MONOCYTES (AUTO) 0.6 10^3/uL (0.1-1.4); ABSOLUTE NEUT (AUTO) 6.4 10^3/uL (1.7-8.2); BASOPHILS % (AUTO) 0.7 % (0-2); EOSINOPHILS % (AUTO) 2.3 % (0-6); HEMATOCRIT 26.6 % (36.0-47.0); HEMOGLOBIN 8.9 g/dL (12.0-15.5); LYMPHOCYTES % (AUTO) 19.4 % (13-45); MEAN CORPUSCULAR HEMOGLOBIN 32.5 pg (27.0-33.4); MEAN CORPUSCULAR HGB CONC 33.7 g/dL (32.0-36.0); MEAN CORPUSCULAR VOLUME 96 fl (80-97); MONOCYTES % (AUTO) 6.3 % (3-13); PLATELET COUNT 281 10^3/uL (150-450); RED BLOOD COUNT 2.76 10^6/uL (3.72-5.28); RED CELL DISTRIBUTION WIDTH 14.7 % (11.5-14.0); SEGMENTED NEUTROPHILS % (AUTO) 71.3 % (42-78); TOTAL CELLS COUNTED % (AUTO) 100 %
[2019-11-13] MEDS: HEPARIN SOD (PORCINE) 5,000 UNIT/ML 1 ML VIAL SUBCUT SCH ×2 (06:58→14:32)
[2019-11-13] MEDS: CEFAZOLIN 1 GM/D5W RTU 1 GM/50 ML RTUPB IV SCH ×2 (07:01→11:56)
[2019-11-13 07:24] LABS: ANION GAP 7 (5-19); BLOOD UREA NITROGEN 12 mg/dL (7-20); CALCIUM 8.8 mg/dL (8.4-10.2); CARBON DIOXIDE 22 mmol/L (22-30); CHLORIDE 108 mmol/L (98-107); GLUCOSE 107 mg/dL (75-110); POTASSIUM 4.1 mmol/L (3.6-5.0)
--- NOTE | 2019-11-13 10:55 | RADIOLOGY REPORT (SQ) ---
EXAM DESCRIPTION: IVP W/WO TOMOGRAMS IMAGES COMPLETED DATE/TIME: 11/13/2019 9:36 am REASON FOR STUDY: r/o ureter injury. Z43.3 ENCOUNTER FOR ATTENTION TO COLOSTOMY Z87.19 PERSONAL HI STORY OF OTHER DISEASES OF THE DIGESTIVE S COMPARISON: None. NUMBER OF VIEWS: See below. TECHNIQUE: A alarm investigator radiograph of the abdomen and pelvis was obtained. After that, 100 mL of Omnipaq ue 300 were injected intravenously and see oral AP radiographs of the abdomen and pelvis were obtaine d at 5 minutes intervals. RENAL FUNCTION: Creatinine 0.72 milligrams/deciliter LIMITATIONS: None. FINDINGS: OXYGEN TANK FILLER FILM: There is a MATTHEW drain in place in the pelvis, there are surgical anastomosis st aple line that project over the mid left paramedian pelvis, and there are surgical cutaneous ghassan that project over the pelvis and left lower quadrant. IMMEDIATE POST INJECTION: After the injection of intravenous contrast there is prompt uptake and excr etion of the contrast with a focal area of extravasation noted over the mid sacrum consistent with ur eteral leak. The left uterus is opacified with contrast and intact without a filling defect or evide nce of extravasation. POST VOID: Focal area of extravasation that projects over the mid sacrum. OTHER: No other finding. IMPRESSION: Findings as above consistent with a right distal ureteral leak. COMMENT: This report was called to BEE ALBARRAN MD at10:49 on 11/13/2019. TECHNICAL DOCUMENTATION: JOB ID: [id number] 2010 [employer]- All Rights Reserved Reading location - IP/workstation name: [email or web address]
[2019-11-13] MEDS: FAMOTIDINE INJ/PF 20 MG/2 ML SDV IV SCH (11:55)
[2019-11-13] MEDS: MORPHINE SULFATE 10 MG/ML INJ IV PRN (11:55)
[2019-11-13] MEDS: ONDANSETRON HCL INJ/PF 4 MG/2 ML SDV IV PRN (12:00)
[2019-11-13] MEDS: 1/2 NORMAL SALINE 1,000 ML IV PRN (12:07)
[2019-11-13 12:12] VITALS: BP 145/67
--- NOTE | 2019-11-13 13:49 | PDOC PROGRESS REPORT ---
Subjective Progress Note for:: 11/13/19 Subjective:: Feels okay passing stool tolerating regular diet Reason For Visit: Z43.3 ENCOUNTER FOR ATTENTION TO COLOSTOMY Physical Exam Vital Signs: Temp Pulse Resp BP Pulse Ox 97.7 F 71 16 145/67 H 98 11/13/19 11:03 11/13/19 11:03 11/13/19 11:03 11/13/19 11:03 11/13/19 11:03 Intake & Output 11/12/19 11/13/19 11/14/19 06:59 06:59 06:59 Intake Total 2270 3340 460 Output Total 820 770 180 Balance 1450 2570 280 Weight 114.8 kg 111.9 kg General appearance: PRESENT: no acute distress, morbidly obese Head exam: PRESENT: normocephalic Eye exam: PRESENT: EOMI Ear exam: PRESENT: normal external ear exam Mouth exam: PRESENT: moist Neck exam: PRESENT: full ROM Respiratory exam: PRESENT: clear to auscultation michael Cardiovascular exam: PRESENT: RRR Pulses: PRESENT: +2 pedal pulses bilateral Breast: PRESENT: Normal GI/Abdominal exam: PRESENT: soft, other - MATTHEW output still serous approximately 180 to 200 cc a shift Rectal exam: PRESENT: deferred Musculoskeletal exam: PRESENT: full ROM Neurological exam: PRESENT: alert, awake, oriented to person, oriented to place Psychiatric exam: PRESENT: appropriate affect Skin exam: PRESENT: dry Results Laboratory Results: 11/13/19 06:27 11/13/19 06:27 11/13/19 11/13/19 06:27 06:27 WBC 9.0 RBC 2.76 L Hgb 8.9 L Hct 26.6 L MCV 96 MCH 32.5 MCHC 33.7 RDW 14.7 H Plt Count 281 Seg Neutrophils % 71.3 Sodium 136.7 L Potassium 4.1 Chloride 108 H Carbon Dioxide 22 Anion Gap 7 BUN 12 Creatinine 0.72 Est GFR ( Amer) > 60 Glucose 107 Calcium 8.8 Impressions: Intravenous Pyelogram 11/13/19 00:00 IMPRESSION: Findings as above consistent with a right distal ureteral leak. Assessment & Plan - Plan Summary Plan Summary: Impression patient doing well except for the increased output via the MATTHEW drain. Therefore a creatinine of the fluid was sent yesterday and was noted to be high in the 38 range. Consultation was made with Dr. Michael Pope urology at [facility]. He suggested an IVP which was accomplished which showed a questionable leakage from the distal right ureter. Therefore I consulted urology at [facility]. Who graciously except the patient in transfer she will now be transferred to [facility] for evaluation using cystoscopy and possible stent placement versus ureteral repair. I explained all this to the patient and explained that this is a possible complication from surgery although it is apparently delayed since initially methylene blue dyed urine was noted in her Au catheter after the procedure but not in the Benjamin-Shields drainage. It is unclear on the IVP whether there is a leakage from the site of the ureter or complete transection. Therefore she will require a cystoscopy.
--- NOTE | 2019-11-13 14:31 | PDOC TRANSFER SUMMARY ---
General Admission Date/PCP: 11/07/19 05:31 LENCHO HENDERSON DO Resuscitation Status: Full Code - Transfer Medications Home Medications: Levothyroxine Sodium [Synthroid 0.112 mg Tablet] 0.112 mg PO Q6AM 05/11/19 Sertraline HCl 100 mg PO HSP PRN 09/11/19 Transfer Medications: Current Medications Diphenhydramine HCl (Benadryl Inj 50 Mg/1 Ml Vial) 25 mg IV HSP PRN PRN Reason: INSOMNIA Stop: 12/09/19 19:34 Last Admin: 11/12/19 22:31 Dose: 25 mg Documented by: Famotidine (Pepcid Inj/Pf 20 Mg/2 Ml Sdv) 20 mg IV Q12 LEE Stop: 12/07/19 21:59 Last Admin: 11/13/19 11:55 Dose: 20 mg Documented by: Heparin Sodium (Porcine) (Heparin Inj 5,000 Units/Ml 1 Ml Vial) 5,000 unit SUBCUT Q8 LEE Stop: 12/07/19 13:59 Last Admin: 11/13/19 06:58 Dose: 5,000 unit Documented by: Cefazolin Sodium/Dextrose (Ancef Rtu 1 Gm/D5w 50 Ml Premix Bag) 1 gm in 50 mls @ 100 mls/hr IV Q8A LEE Stop: 11/14/19 17:59 Last Admin: 11/13/19 11:56 Dose: 100 ml/hr, 100 mls/hr Documented by: Metronidazole (Flagyl Rtu 500 Mg/Ns 100ml Premix) 500 mg in 100 mls @ 100 mls/hr IV Q8 LEE Stop: 11/14/19 13:59 Last Infusion: 11/13/19 07:57 Dose: Infused Documented by: Sodium Chloride (Nacl 0.45% 1000 Ml Iv Soln) 1,000 mls @ 125 mls/hr IV CONTINUOUS PRN PRN Reason: THIS MED IS NOT "PRN" Stop: 12/08/19 08:42 Last Admin: 11/13/19 12:07 Dose: 125 mls/hr Documented by: Morphine Sulfate (Morphine 10 Mg/Ml Inj) 4 mg IV Q4HP PRN PRN Reason: FOR PAIN Stop: 11/14/19 11:14 Last Admin: 11/13/19 11:55 Dose: 4 mg Documented by: Ondansetron HCl (Zofran Inj/Pf 4 Mg/2 Ml Sdv) 4 mg IV Q6HP PRN PRN Reason: FOR NAUSEA/VOMITING Stop: 12/07/19 11:14 Last Admin: 11/13/19 12:00 Dose: 4 mg Documented by: - Allergies Allergies/Adverse Reactions: No Known Allergies Allergy (Verified 11/07/19 06:17) - Diet/Activity Discharge Diet: Regular Physical Exam Vital Signs: Temp Pulse Resp BP Pulse Ox 97.7 F 71 16 145/67 H 98 11/13/19 11:03 11/13/19 11:03 11/13/19 11:03 11/13/19 11:03 11/13/19 11:03 Intake & Output 11/12/19 11/13/19 11/14/19 06:59 06:59 06:59 Intake Total 2270 3340 460 Output Total 820 770 180 Balance 1450 2570 280 Weight 114.8 kg 111.9 kg General appearance: PRESENT: no acute distress Head exam: PRESENT: normocephalic Eye exam: PRESENT: EOMI Ear exam: PRESENT: normal external ear exam Mouth exam: PRESENT: moist Neck exam: PRESENT: full ROM Respiratory exam: PRESENT: clear to auscultation michael Cardiovascular exam: PRESENT: RRR Pulses: PRESENT: normal radial pulses, normal femoral pulses Vascular exam: PRESENT: normal capillary refill Breast: PRESENT: Normal - MATTHEW on the right GI/Abdominal exam: PRESENT: soft, other Rectal exam: PRESENT: deferred Extremities exam: PRESENT: full ROM Neurological exam: PRESENT: alert, awake, oriented to person, oriented to place Psychiatric exam: PRESENT: appropriate affect Skin exam: PRESENT: dry Results Laboratory Results: 11/13/19 06:27 11/13/19 06:27 11/13/19 11/13/19 06:27 06:27 WBC 9.0 RBC 2.76 L Hgb 8.9 L Hct 26.6 L MCV 96 MCH 32.5 MCHC 33.7 RDW 14.7 H Plt Count 281 Seg Neutrophils % 71.3 Sodium 136.7 L Potassium 4.1 Chloride 108 H Carbon Dioxide 22 Anion Gap 7 BUN 12 Creatinine 0.72 Est GFR ( Amer) > 60 Glucose 107 Calcium 8.8 Impressions: Intravenous Pyelogram 11/13/19 00:00 IMPRESSION: Findings as above consistent with a right distal ureteral leak. Plan Discharge Plan: Patient is status post a coloproctostomy with a partial right cecectomy for cecal polyp. She is done well during her hospital course however recently she is noted to have increased MATTHEW drainage on the right side IVP done today shows a ureteral leak is unclear whether this is a ureteral transection or leak from the side of the ureter. Consultation was made with [facility] urology who suggested a transfer to [facility] for cystoscopy and possible ureteral stenting versus ureteral pair. otherwise patient is doing well she is tolerating regular diet having bowel function wound is clean and dry her white blood count was within normal limits as is her electrolytes and creatinine. She will be transferred today to [facility] for tertiary care regarding urology for cystoscopy and possible ureteral stenting versus ureteral repair. Hopefully she will return here after her evaluation at [facility] for evaluation and discharge.
[2019-11-13] MEDS ORDERED: MORPHINE SULFATE 10 MG/ML INJ IV ONE (16:00)
== END 2019-11-13 15:10 | disposition short-term general hospital (02) | DRG 331 ==
LOC: INOR 11-07 05:31 → 4W 11-07 15:25 → 4N 11-09 02:28
PROVIDERS: ADMIT Surgery; ATTEND Surgery
PROC: 0DSK0ZZ Reposition Ascending Colon, Open Approach (ICD-10-PCS; 2019-11-07)
PROC: 0DBH0ZZ Excision of Cecum, Open Approach (ICD-10-PCS; 2019-11-07)
PROC: 0D1K0ZP Bypass Ascending Colon to Rectum, Open Approach (ICD-10-PCS; principal; 2019-11-07 07:30)
PROC: 0J9C30Z Drainage of Pelvic Region Subcutaneous Tissue and Fascia with Drainage Device, Percutaneous Approach (ICD-10-PCS; 2019-11-13)
DX: Z43.3 Encounter for attention to colostomy (principal); E07.9 Disorder of thyroid, unspecified; F41.9 Anxiety disorder, unspecified; Z87.19 Personal history of other diseases of the digestive system; Z79.890 Hormone replacement therapy; Z79.899 Other long term (current) drug therapy; Z87.891 Personal history of nicotine dependence; Z03.818 Encounter for observation for suspected exposure to other biological agents ruled out
CPT/HCPCS: 36415; 74400; 790; 80048; 82570; 85025; 86850; 86900; 86901; 87635; 88307; 94799; C9803; J0330; J0690; J1100; J1170; J1200; J1610; J1644; J1885; J2250; J2270; J2310; J2370; J2405; J2550; J2704; J2710; J3010; J3480; J3490; J7060; Q9968; S0028

== ENCOUNTER 2019-12-15 05:49 | Day surgery (SDC) | payer BC ==
[2019-12-15 07:04] LABS: INTERNATIONAL RATION (INR) 1.11; PROTHROMBIN TIME 14.4 SEC (11.4-15.4)
[2019-12-15 07:05] LABS: PARTIAL THROMBOPLASTIN TIME 35.2 SEC (23.5-35.8)
[2019-12-15 07:07] LABS: HEMATOCRIT 24.1 % (36.0-47.0); MEAN CORPUSCULAR HEMOGLOBIN 30.7 pg (27.0-33.4); MEAN CORPUSCULAR HGB CONC 32.8 g/dL (32.0-36.0); MEAN CORPUSCULAR VOLUME 93 fl (80-97); PLATELET COUNT 343 10^3/uL (150-450); RED BLOOD COUNT 2.58 10^6/uL (3.72-5.28); RED CELL DISTRIBUTION WIDTH 15.1 % (11.5-14.0); WHITE BLOOD COUNT 8.8 10^3/uL (4.0-10.5)
[2019-12-15 07:09] LABS: HEMOGLOBIN 7.9 g/dL (12.0-15.5)
[2019-12-15 07:11] LABS: BLOOD UREA NITROGEN 15 mg/dL (7-20)
[2019-12-15] MEDS ORDERED: LIDOCAINE 1% INJ-PF (10 MG/ML) 30 ML SDV ONE (08:31)
[2019-12-15] MEDS ORDERED: FENTANYL CITRATE INJ/PF 100 MCG/2 ML AMPUL ONE (08:32)
[2019-12-15] MEDS ORDERED: MIDAZOLAM 2 MG/2 ML INJ ONE (08:32)
[2019-12-15 12:47] VITALS: BP 173/74
--- NOTE | 2019-12-15 14:35 | RADIOLOGY REPORT (SQ) ---
EXAM DESCRIPTION: CHG PERC TUBE/DRN CATH W/S I; GUIDANCE FLUOROSCOPIC; ADDITIONAL CHARGES IMAGES COMPLETED DATE/TIME: 12/15/2019 10:11 am; 12/15/2019 10:31 am REASON FOR STUDY: DRAIN NEEDS TO BE REPLACED; ITEM CHARGES FOR PROCEDURE T83.098A [facility] COMPL OF OT ER URINARY CATHETER, INITIAL ENCOU COMPARISON: None. FLUORO TIME: 2.5 minutes. 3 images submitted to PACS. LIMITATIONS: None. PROCEDURE: The procedure, risks, benefits, and alternatives were discussed with the patient in the p reprocedural area, and all questions were answered. Informed consent was obtained verbally and in wri ting. The patient was then brought to the procedural suite, positioned prone on the fluoroscopy table, and a time-out was performed. The flank and the external portion of the nephrostomy catheter were then prepped and draped with 2% c hlorhexidine utilizing standard sterile technique. The catheter was then injected with contrast and a pyelogram was obtained ; the pyelogram confirmed that the nephrostomy catheter was positioned within the inferior calyx. After that, the external portion of the catheter was cut and removed over a 0.03 5 inch Bentson wire. A 5 [place] Kumpe the catheter was then introduced over the Bentson wire and adva nced into the proximal ureter ; afterwards, the Bentson wire was removed and an antegrade ureterogram was obtained. The right uterus is tortuous and there is a leak from the distal ureter at the level of the SI joint. The Kumpe catheter was then exchanged of an Amplatz wire for a new 8 [place] nephrostomy catheter - th e catheter was formed within the renal pelvis. To confirm proper position of the catheter contrast wa s injected through it and the renal pelvis was opacified. The catheter was then locked in position, f lushed with sterile saline, attached to a drainage bag, and secured in place. The patient tolerated the procedure well without immediate complication. At the end of the procedure the patient's condition was unchanged from the preprocedural baseline. IV conscious sedation was administered at the direction of the performing physician by a cindy pierce. 1 milligrams of Versed and 50 micrograms of fentanyl. Physiologic monitoring was provided befor e, during, and after sedation. The total sedation time was 25 minutes. Documentation of [id number] time performing proceduralist spent monitoring the patient: 25 minutes. IMPRESSION: 1. Successful exchange of a right-sided 8 [place] nephrostomy catheter utilizing fluorosc opic guidance. 2. Distal right ureteral leak. COMMENT: Patient medication list reviewed: Yes- Quality ID# 130: Eligible professional attests to do cumenting in the medical record they obtained, updated, or reviewed the patient's current medications . . Quality ID #76: The patient was prepped and draped using maximum sterile barrier technique including cap, mask, sterile gown, sterile gloves, a large sterile sheet, hand hygiene, and 2% Chlorhexidine fo r cutaneous antisepsis. When ultrasound is used, sterile ultrasound techniques are followed requiring sterile gel and sterile probes. Quality ID 145: Final reports for procedures using fluoroscopy that document radiation exposure lissette marilyn, or exposure time and number of fluorographic images (if radiation exposure indices are not avail able) TECHNICAL DOCUMENTATION: JOB ID: [id number] 2010 [employer]- All Rights Reserved rev-09/22 Reading location - IP/workstation name: [email or web address]
--- NOTE | 2019-12-15 14:35 | RADIOLOGY REPORT (SQ) ---
EXAM DESCRIPTION: CHG PERC TUBE/DRN CATH W/S I; GUIDANCE FLUOROSCOPIC; ADDITIONAL CHARGES IMAGES COMPLETED DATE/TIME: 12/15/2019 10:11 am; 12/15/2019 10:31 am REASON FOR STUDY: DRAIN NEEDS TO BE REPLACED; ITEM CHARGES FOR PROCEDURE T83.098A [facility] COMPL OF OT ER URINARY CATHETER, INITIAL ENCOU COMPARISON: None. FLUORO TIME: 2.5 minutes. 3 images submitted to PACS. LIMITATIONS: None. PROCEDURE: The procedure, risks, benefits, and alternatives were discussed with the patient in the p reprocedural area, and all questions were answered. Informed consent was obtained verbally and in wri ting. The patient was then brought to the procedural suite, positioned prone on the fluoroscopy table, and a time-out was performed. The flank and the external portion of the nephrostomy catheter were then prepped and draped with 2% c hlorhexidine utilizing standard sterile technique. The catheter was then injected with contrast and a pyelogram was obtained ; the pyelogram confirmed that the nephrostomy catheter was positioned within the inferior calyx. After that, the external portion of the catheter was cut and removed over a 0.03 5 inch Bentson wire. A 5 [place] Kumpe the catheter was then introduced over the Bentson wire and adva nced into the proximal ureter ; afterwards, the Bentson wire was removed and an antegrade ureterogram was obtained. The right uterus is tortuous and there is a leak from the distal ureter at the level of the SI joint. The Kumpe catheter was then exchanged of an Amplatz wire for a new 8 [place] nephrostomy catheter - th e catheter was formed within the renal pelvis. To confirm proper position of the catheter contrast wa s injected through it and the renal pelvis was opacified. The catheter was then locked in position, f lushed with sterile saline, attached to a drainage bag, and secured in place. The patient tolerated the procedure well without immediate complication. At the end of the procedure the patient's condition was unchanged from the preprocedural baseline. IV conscious sedation was administered at the direction of the performing physician by a cindy pierce. 1 milligrams of Versed and 50 micrograms of fentanyl. Physiologic monitoring was provided befor e, during, and after sedation. The total sedation time was 25 minutes. Documentation of [id number] time performing proceduralist spent monitoring the patient: 25 minutes. IMPRESSION: 1. Successful exchange of a right-sided 8 Chadian nephrostomy catheter utilizing fluorosc opic guidance. 2. Distal right ureteral leak. COMMENT: Patient medication list reviewed: Yes- Quality ID# 130: Eligible professional attests to do cumenting in the medical record they obtained, updated, or reviewed the patient's current medications . . Quality ID #76: The patient was prepped and draped using maximum sterile barrier technique including cap, mask, sterile gown, sterile gloves, a large sterile sheet, hand hygiene, and 2% Chlorhexidine fo r cutaneous antisepsis. When ultrasound is used, sterile ultrasound techniques are followed requiring sterile gel and sterile probes. Quality ID 145: Final reports for procedures using fluoroscopy that document radiation exposure lissette marilyn, or exposure time and number of fluorographic images (if radiation exposure indices are not avail able) TECHNICAL DOCUMENTATION: JOB ID: [id number] 2010 [employer]- All Rights Reserved rev-09/22 Reading location - IP/workstation name: [email or web address]
--- NOTE | 2019-12-15 14:35 | RADIOLOGY REPORT (SQ) ---
EXAM DESCRIPTION: CHG PERC TUBE/DRN CATH W/S I; GUIDANCE FLUOROSCOPIC; ADDITIONAL CHARGES IMAGES COMPLETED DATE/TIME: 12/15/2019 10:11 am; 12/15/2019 10:31 am REASON FOR STUDY: DRAIN NEEDS TO BE REPLACED; ITEM CHARGES FOR PROCEDURE T83.098A [facility] COMPL OF OT ER URINARY CATHETER, INITIAL ENCOU COMPARISON: None. FLUORO TIME: 2.5 minutes. 3 images submitted to PACS. LIMITATIONS: None. PROCEDURE: The procedure, risks, benefits, and alternatives were discussed with the patient in the p reprocedural area, and all questions were answered. Informed consent was obtained verbally and in wri ting. The patient was then brought to the procedural suite, positioned prone on the fluoroscopy table, and a time-out was performed. The flank and the external portion of the nephrostomy catheter were then prepped and draped with 2% c hlorhexidine utilizing standard sterile technique. The catheter was then injected with contrast and a pyelogram was obtained ; the pyelogram confirmed that the nephrostomy catheter was positioned within the inferior calyx. After that, the external portion of the catheter was cut and removed over a 0.03 5 inch Bentson wire. A 5 [place] Kumpe the catheter was then introduced over the Bentson wire and adva nced into the proximal ureter ; afterwards, the Bentson wire was removed and an antegrade ureterogram was obtained. The right uterus is tortuous and there is a leak from the distal ureter at the level of the SI joint. The Kumpe catheter was then exchanged of an Amplatz wire for a new 8 [place] nephrostomy catheter - th e catheter was formed within the renal pelvis. To confirm proper position of the catheter contrast wa s injected through it and the renal pelvis was opacified. The catheter was then locked in position, f lushed with sterile saline, attached to a drainage bag, and secured in place. The patient tolerated the procedure well without immediate complication. At the end of the procedure the patient's condition was unchanged from the preprocedural baseline. IV conscious sedation was administered at the direction of the performing physician by a cindy pierce. 1 milligrams of Versed and 50 micrograms of fentanyl. Physiologic monitoring was provided befor e, during, and after sedation. The total sedation time was 25 minutes. Documentation of [id number] time performing proceduralist spent monitoring the patient: 25 minutes. IMPRESSION: 1. Successful exchange of a right-sided 8 [place] nephrostomy catheter utilizing fluorosc opic guidance. 2. Distal right ureteral leak. COMMENT: Patient medication list reviewed: Yes- Quality ID# 130: Eligible professional attests to do cumenting in the medical record they obtained, updated, or reviewed the patient's current medications . . Quality ID #76: The patient was prepped and draped using maximum sterile barrier technique including cap, mask, sterile gown, sterile gloves, a large sterile sheet, hand hygiene, and 2% Chlorhexidine fo r cutaneous antisepsis. When ultrasound is used, sterile ultrasound techniques are followed requiring sterile gel and sterile probes. Quality ID 145: Final reports for procedures using fluoroscopy that document radiation exposure lissette marilyn, or exposure time and number of fluorographic images (if radiation exposure indices are not avail able) TECHNICAL DOCUMENTATION: JOB ID: [id number] 2010 [employer]- All Rights Reserved rev-09/22 Reading location - IP/workstation name: [email or web address]
== END 2019-12-15 12:20 | disposition home or self-care (01) ==
LOC: RAD 05:49
PROVIDERS: ATTEND Surgery
DX: T83.098A Other mechanical complication of other urinary catheter, initial encounter (principal); X58.XXXA Exposure to other specified factors, initial encounter; E07.9 Disorder of thyroid, unspecified; Z87.891 Personal history of nicotine dependence; Z79.899 Other long term (current) drug therapy
CPT/HCPCS: 36415; 84520; 82565; 85027; 85610; 85730; 87635; 75984; 77001; C1769; C1729; C1887; J2250; J3010; J3490; C9803